=== PATIENT | female | born 1965 | race Caucasian/White ===

== ENCOUNTER 2017-10-08 16:54 | Emergency (ER) | payer MEDICARE ==
[~2017-10-08] VITALS: Ht 157.5 cm; Wt 95.3 kg
[2017-10-08] MEDS ORDERED: KETOROLAC TROMETHAMINE 30 MG/ML VIAL IM STA (17:06)
[2017-10-08] MEDS ORDERED: METOCLOPRAMIDE HCL 10 MG/2ML VIAL IM ONE (17:15)
[2017-10-08] MEDS ORDERED: DIPHENHYDRAMINE HCL INJ 50 MG/ML VIAL IM ONE (17:15)
[2017-10-08] MEDS ORDERED: BUTORPHANOL TARTRATE INJ 1 MG/ML VIAL IM ONE (17:15)
[2017-10-08] MEDS ORDERED: MORPHINE SULFATE 5 MG/ML VIAL IV ONE (17:30)
== END 2017-10-08 17:46 | disposition home or self-care (01) ==
LOC: FSED 16:54
DX: G43.909 Migraine, unspecified, not intractable, without status migrainosus (principal); R11.0 Nausea
CPT/HCPCS: 99283; J0595; J1200; J1885; J2270; J2765

== ENCOUNTER 2018-03-22 00:25 | Emergency (ER) | payer MEDICARE ==
[~2018-03-22] VITALS: Ht 157.5 cm; Wt 95.3 kg
[2018-03-22] MEDS ORDERED: KETOROLAC TROMETHAMINE 30 MG/ML VIAL IV STA (02:37)
[2018-03-22] MEDS ORDERED: ONDANSETRON HCL INJ 2 MG/ML VIAL IV STA (02:37)
[2018-03-22] MEDS ORDERED: DIPHENHYDRAMINE HCL INJ 50 MG/ML VIAL IV ONE (02:45)
[2018-03-22] MEDS ORDERED: SODIUM CHLORIDE 0.9% 1000ML 1,000 ML IV SCH ×2 (02:45→03:00)
[2018-03-22] MEDS ORDERED: MORPHINE SULFATE 2 MG/ML SYR IV ONE (07:00)
== END 2018-03-22 04:25 | disposition left against medical advice (07) ==
LOC: FSED 02:15
DX: G43.019 Migraine without aura, intractable, without status migrainosus (principal); R11.2 Nausea with vomiting, unspecified
CPT/HCPCS: 93005; 99282; J1200; J1885; J2270; J2405; J7030

== ENCOUNTER 2018-07-20 03:50 | Emergency (ER) | payer MEDICARE ==
[~2018-07-20] VITALS: Ht 157.5 cm; Wt 95.3 kg
--- OUTSIDE RECORDS SUMMARY | 2018-07-20 03:54 | XMS REPORT | Continuity of Care Document ---
Author Author Mary albarado Organization Interface Address Unknown Phone Unavailable Problems Problem Status Onset Date Classification Date Reported Comments Source EGD Active 05/25/2018 [facility] EGD /C BOTOX Active 03/17/2018 [facility] E66.9 OBESITY, UNSPECIFIED Active 11/05/2017 [facility] E66.9 Active 07/14/2017 [facility] Pain due to internal orthopedic prosthetic devices, implants and grafts, initial encounter 04/30/2017 07/29/2017 [facility] Z96.651 Active 02/11/2017 [facility] RIGHT KNEE Active 10/07/2016 [facility] William M79.674 - PAIN IN RIGHT TOE(S) Active 07/31/2016 [facility] [place] RT KNEE TKA Active 04/20/2016 [facility] [place] RT TKA Active 04/20/2016 [facility] [place] RIGHT TOTAL KNEE REPLACEMENT Active 04/20/2016 [facility] [place] KNEE Active 04/20/2016 [facility] [place] UNK Active 03/20/2016 [facility] R10.32 - LEFT LOWER QUADRANT PAIN Active 08/19/2015 [facility] [place] Z12.39 - ENCOUNTER FOR OTH SCREENING FO Active 03/11/2015 [facility] [place] Glossitis<sup>15</sup> Active 10/01/2014 Problem 02/21/2016 Data migrated from [place] on 10/17/14. [facility] [place] Low back pain<sup>19</sup> Active 10/01/2014 Problem 02/21/2016 Data migrated from [place] on 10/17/14. [facility] [place] [facility] [place] Bronchitis<sup>5</sup> Active 10/01/2014 Problem 09/19/2017 Data migrated from [place] on 10/17/14. [facility] [place] [facility] [place] Bronchitis<sup>5</sup> Active 10/01/2014 Problem 07/10/2018 Data migrated from [employer] on 10/17/14. [facility] [place], [place] Glossitis<sup>16</sup> Active 10/01/2014 Problem 07/10/2018 Data migrated from [employer] on 10/17/14. [place] [place] [facility] [place], [facility] Low back pain<sup>20</sup> Active 10/01/2014 Problem 07/10/2018 Data migrated from [employer] on 10/17/14. [place], [facility] [place], [facility] [place], [facility] Bronchitis<sup>5</sup> Active 10/01/2014 Problem 09/17/2017 Data migrated from [employer] on 10/17/14. [facility] [place], [facility] [place] Bronchitis<sup>5</sup> Active 10/01/2014 Problem 05/13/2018 Data migrated from [employer] on 10/17/14. [facility] [place], [facility] Bronchitis<sup>5</sup> Active 10/01/2014 Problem 07/29/2017 Data migrated from [employer] on 10/17/14. [facility] [place], [facility] 338 - PAIN NEC Active 09/05/2014 [facility] [place] Dysfunction of eustachian tube<sup>9</sup> Active 03/28/2014 Problem 02/21/2016 Data migrated from [employer] on 09/08/14. [facility] [place], [facility] [place] Dysuria<sup>10</sup> Active 03/28/2014 Problem 02/21/2016 Data migrated from [employer] on 09/08/14. [facility] [place], [facility] [place] Recurrent sinusitis<sup>25</sup> Active 03/28/2014 Problem 02/21/2016 Data migrated from [employer] on 09/08/14. [facility] [place], [facility] [place] Dysfunction of eustachian tube<sup>10</sup> Active 03/28/2014 Problem 07/10/2018 Data migrated from [employer] on 09/08/14. [place], [facility] [place], [facility] [place], [facility] [place] Dysuria<sup>11</sup> Active 03/28/2014 Problem 07/10/2018 Data migrated from [employer] on 09/08/14. [facility], [facility] [place], [facility] [place], [facility] [place] Recurrent sinusitis<sup>26</sup> Active 03/28/2014 Problem 07/10/2018 Data migrated from [employer] on 09/08/14. [facility], [facility] [place], [facility] [place], [facility] [place] Recurrent urinary tract infection<sup>26</sup> Active 12/01/2013 Problem 02/21/2016 Data migrated from [employer] on 09/08/14. [facility] [place], [facility] [place] Recurrent urinary tract infection<sup>27</sup> Active 12/01/2013 Problem 07/10/2018 Data migrated from [employer] on 09/08/14. [facility], [facility] [place], [facility] [place], [facility] [place] Hypothyroidism<sup>17</sup> Active 10/30/2013 Problem 02/21/2016 Data migrated from [employer] on 09/08/14. [facility] [place], [facility] [place] Meralgia paresthetica<sup>21</sup> Active 10/30/2013 Problem 02/21/2016 Data migrated from [employer] on 09/08/14. [facility] [place], [facility] [place] Urinary tract infectious disease<sup>31, 32</sup> Resolved 10/30/2013 Problem 02/21/2016 Data migrated from [employer] on 10/26/14. [facility] [place], [facility] [place] Hypothyroidism<sup>18</sup> Active 10/30/2013 Problem 07/10/2018 Data migrated from [employer] on 09/08/14. [facility], [facility] [place], [facility] [place], [facility], [facility] [place] Meralgia paresthetica<sup>22</sup> Active 10/30/2013 Problem 07/10/2018 Data migrated from [employer] on 09/08/14. [facility], [facility] [place], [facility] [place], [facility], [facility] Urinary tract infectious disease<sup>32, 33</sup> Resolved 10/30/2013 Problem 07/10/2018 Data migrated from [employer] on 10/26/14. [facility], [facility] [place], [facility] [place], [facility], [facility] Per DEVIATED NASAL SEPTUM, TURBINATE HYPERTR Active 09/28/2013 [facility] 278.00 Active 09/19/2013 [facility] Retention of urine<sup>28</sup> Active 08/29/2013 Problem 02/21/2016 Data migrated from [employer] on 09/08/14. [facility] [place], [facility] [place] Retention of urine<sup>29</sup> Active 08/29/2013 Problem 07/10/2018 Data migrated from [employer] on 09/08/14. [facility], [facility] [place], [facility] [place], [facility], [facility] Gastroparesis syndrome<sup>14</sup> Active 08/02/2013 Problem 02/21/2016 Data migrated from [employer] on 09/08/14. [facility] [place], [facility] [place] Hiatal hernia<sup>16</sup> Active 08/02/2013 Problem 02/21/2016 Data migrated from [employer] on 09/08/14. [facility] [place], [facility] [place] Gastroparesis syndrome<sup>15</sup> Active 08/02/2013 Problem 07/10/2018 Data migrated from [employer] on 09/08/14. [facility], [facility] [place], [facility] [place], [facility], [facility] [place] Hiatal hernia<sup>17</sup> Active 08/02/2013 Problem 07/10/2018 Data migrated from [employer] on 09/08/14. [facility], [facility] [place], [facility] [place], [facility], [facility] 350.2 - ATYPICAL FACE P Active 08/01/2013 [facility] Acute cystitis<sup>1, 2</sup> Resolved 07/26/2013 Problem 09/19/2017 Data migrated from [employer] on 10/26/14. [facility] [place], [facility] [place] Acute cystitis<sup>1, 2</sup> Resolved 07/26/2013 Problem 07/10/2018 Data migrated from [employer] on 10/26/14. [facility] [place], [place] Acute cystitis<sup>1, 2</sup> Resolved 07/26/2013 Problem 09/17/2017 Data migrated from [employer] on 10/26/14. [facility] [place], [facility] [place] Acute cystitis<sup>1, 2</sup> Resolved 07/26/2013 Problem 05/13/2018 Data migrated from [employer] on 10/26/14. [facility] [place], [facility] Acute cystitis<sup>1, 2</sup> Resolved 07/26/2013 Problem 07/29/2017 Data migrated from [employer] on 10/26/14. [facility] [place], [facility] Per Impaired glucose tolerance<sup>18</sup> Active 07/14/2013 Problem 02/21/2016 Data migrated from [employer] on 09/08/14. [facility], [facility] [place] Serum TSH level abnormal<sup>29</sup> Active 07/14/2013 Problem 02/21/2016 Data migrated from [employer] on 09/08/14. [facility] [place], [facility] [place] Vitamin D deficiency<sup>34</sup> Active 07/14/2013 Problem 02/21/2016 Data migrated from [employer] on 09/08/14. [facility] [place], [facility] [place] Impaired glucose tolerance<sup>19</sup> Active 07/14/2013 Problem 07/10/2018 Data migrated from [employer] on 09/08/14. [facility], [facility] [place], [facility] [place], [facility], [facility] Serum TSH level abnormal<sup>30</sup> Active 07/14/2013 Problem 07/10/2018 Data migrated from [employer] on 09/08/14. [facility], [facility] [place], [facility] [place], [facility], [facility] Vitamin D deficiency<sup>35</sup> Active 07/14/2013 Problem 07/10/2018 Data migrated from [employer] on 09/08/14. [facility], [facility] [place], [facility] [place], [facility], [facility] [place] Fatigue<sup>12</sup> Active 07/13/2013 Problem 02/21/2016 Data migrated from [employer] on 09/08/14. [facility] [place], [facility] [place] Fatigue<sup>13</sup> Active 07/13/2013 Problem 07/10/2018 Data migrated from [employer] on 09/08/14. [facility], [facility] [place], [facility] [place], [facility], [facility] [place] 719.44 - JOINT PAIN-HAND Active 06/16/2013 [facility] 836.0 Active 05/24/2013 [place] Depressive disorder<sup>8</sup> Active 05/19/2013 Problem 02/21/2016 Data migrated from [employer] on 09/08/14. [facility] [place], [facility] [place] Foot pain<sup>13</sup> Active 05/19/2013 Problem 02/21/2016 Data migrated from [employer] on 09/08/14. [facility] [place], [facility] [place] Neck pain<sup>23</sup> Active 05/19/2013 Problem 02/21/2016 Data migrated from [employer] on 09/08/14. [facility], [facility] [place] Depressive disorder<sup>9</sup> Active 05/19/2013 Problem 07/10/2018 Data migrated from [employer] on 09/08/14. [facility], [facility] [place], [facility] [place], [facility], [facility] [place] Foot pain<sup>14</sup> Active 05/19/2013 Problem 07/10/2018 Data migrated from [employer] on 09/08/14. [facility], [facility] [place], [facility] [place], [facility], [facility] [place] Neck pain<sup>24</sup> Active 05/19/2013 Problem 07/10/2018 Data migrated from [employer] on 09/08/14. [facility], [facility] [place], [facility] [place], [facility], [facility] [place] Viral gastroenteritis<sup>33</sup> Resolved 03/03/2013 Problem 02/21/2016 Data migrated from [employer] on 10/26/14. [place], [facility] [place] Allergic rhinitis<sup>3</sup> Active 03/03/2013 Problem 09/19/2017 Data migrated from [employer] on 09/08/14. [place], [facility] [place] Allergic rhinitis<sup>3</sup> Active 03/03/2013 Problem 07/10/2018 Data migrated from [employer] on 09/08/14. [facility],[facility] Viral gastroenteritis<sup>34</sup> Resolved 03/03/2013 Problem 07/10/2018 Data migrated from [employer] on 10/26/14. [facility], [facility] [place], [facility] [place], [facility], [facility] Allergic rhinitis<sup>3</sup> Active 03/03/2013 Problem 09/17/2017 Data migrated from [employer] on 09/08/14. [facility] [place] Allergic rhinitis<sup>3</sup> Active 03/03/2013 Problem 05/13/2018 Data migrated from [employer] on 09/08/14. [facility] [place], [facility] Allergic rhinitis<sup>3</sup> Active 03/03/2013 Problem 07/29/2017 Data migrated from [employer] on 09/08/14. [facility] [place] Lumbar spondylosis<sup>20</sup> Active 01/25/2013 Problem 02/21/2016 Data migrated from [employer] on 09/08/14. [facility] [place] Tear of meniscus of knee<sup>30</sup> Active 01/25/2013 Problem 02/21/2016 Data migrated from [employer] on 09/08/14. [facility] [place] Carpal tunnel syndrome<sup>6</sup> Active 01/25/2013 Problem 09/19/2017 Data migrated from [employer] on 09/08/14. [facility] [place], [facility] [place] Chronic pain syndrome<sup>7</sup> Active 01/25/2013 Problem 09/19/2017 Data migrated from [employer] on 09/08/14. [place], [facility] [place] Carpal tunnel syndrome<sup>6</sup> Active 01/25/2013 Problem 07/10/2018 Data migrated from [employer] on 09/08/14. [place],[facility] Chronic pain syndrome<sup>7</sup> Active 01/25/2013 Problem 07/10/2018 Data migrated from [employer] on 09/08/14. [place],[facility] Lumbar spondylosis<sup>21</sup> Active 01/25/2013 Problem 07/10/2018 Data migrated from [employer] on 09/08/14. [facility], [facility] [place], [facility] [place], [facility], [facility] [place] Tear of meniscus of knee<sup>31</sup> Active 01/25/2013 Problem 07/10/2018 Data migrated from [employer] on 09/08/14. [facility], [facility] [place], [facility] [place], [facility], [facility] [place] Carpal tunnel syndrome<sup>6</sup> Active 01/25/2013 Problem 09/17/2017 Data migrated from [employer] on 09/08/14. [facility] [place] Chronic pain syndrome<sup>7</sup> Active 01/25/2013 Problem 09/17/2017 Data migrated from [employer] on 09/08/14. [place],[facility] [place] Carpal tunnel syndrome<sup>6</sup> Active 01/25/2013 Problem 05/13/2018 Data migrated from [employer] on 09/08/14. [facility] [place], [facility] Chronic pain syndrome<sup>7</sup> Active 01/25/2013 Problem 05/13/2018 Data migrated from [employer] on 09/08/14. [facility] [place], [facility] Carpal tunnel syndrome<sup>6</sup> Active 01/25/2013 Problem 07/29/2017 Data migrated from [employer] on 09/08/14. [facility] [place], [facility] [place] Chronic pain syndrome<sup>7</sup> Active 01/25/2013 Problem 07/29/2017 Data migrated from [employer] on 09/08/14. [facility] [place], [facility] [place] 789.06/553.3/787.01/536.3 Active 01/23/2013 [place] Migraine<sup>22</sup> Active 12/07/2012 Problem 02/21/2016 Data migrated from [employer] on 09/08/14. [facility] [place], [facility] [place] Migraine<sup>23</sup> Active 12/07/2012 Problem 07/10/2018 Data migrated from [employer] on 09/08/14. [facility], [facility] [place], [facility] [place], [facility], [facility] Edema of lower extremity<sup>11</sup> Active 11/01/2012 Problem 02/21/2016 Data migrated from [employer] on 09/08/14. [place], [facility] [place] Obesity<sup>24</sup> Active 11/01/2012 Problem 02/21/2016 Data migrated from [employer] on 09/08/14. [facility] [place], [facility] [place] Restless legs<sup>27</sup> Active 11/01/2012 Problem 02/21/2016 Data migrated from [employer] on 09/08/14. [place], [facility] [place] Benign hypertension<sup>4</sup> Active 11/01/2012 Problem 09/19/2017 Data migrated from [employer] on 09/08/14. [facility] [place], [facility] [place] Benign hypertension<sup>4</sup> Active 11/01/2012 Problem 07/10/2018 Data migrated from [employer] on 09/08/14. [place], [place] Edema of lower extremity<sup>12</sup> Active 11/01/2012 Problem 07/10/2018 Data migrated from [employer] on 09/08/14. [facility], [facility] [place], [facility] [place], [facility], [facility] [place] Obesity<sup>25</sup> Active 11/01/2012 Problem 07/10/2018 Data migrated from [employer] on 09/08/14. [place], [facility] [place], [facility] [place], [facility], [facility] [place] Restless legs<sup>28</sup> Active 11/01/2012 Problem 07/10/2018 Data migrated from [employer] on 09/08/14. [facility], [facility] [place], [facility] [place], [facility], [facility] Benign hypertension<sup>4</sup> Active 11/01/2012 Problem 09/17/2017 Data migrated from [employer] on 09/08/14. [facility] [place], [facility] [place] Benign hypertension<sup>4</sup> Active 11/01/2012 Problem 05/13/2018 Data migrated from [employer] on 09/08/14. [facility] [place], [facility] Benign hypertension<sup>4</sup> Active 11/01/2012 Problem 07/29/2017 Data migrated from [employer] on 09/08/14. [facility] [place], [facility] SPONDYLOSIS/RT KNEE PAIN Active 06/30/1989 [facility] [place] Anxiety depression Active Problem 07/10/2018 [facility], [facility] [place], [facility] [place], [facility] [place],[facility], [facility], [facility] [place] Gastritis Active Problem 07/10/2018 [facility], [facility] [place], [facility] [place], [facility] [place],[facility], [facility], [facility] H/O: migraine Active Problem 07/10/2018 [facility], [facility] [place], [facility] [place], [facility] [place],[facility], [facility], [facility] [place] Restless legs syndrome Active Problem 07/10/2018 [facility], [facility] [place], [facility] [place], [facility] [place],[facility], [facility], [facility] Hiatal hernia Active Problem 03/24/2013 [facility], [facility] [place] Hiatal hernia Active Problem 08/20/2013 [facility], [facility] [place] Gastric ulcer Resolved Problem 09/19/2017 [facility] [place], [facility] [place] Gastroparesis Resolved Problem 09/19/2017 [facility] [place], [facility] [place] Hiatal hernia Active Problem 10/21/2013 [facility] Right knee DJD<sup>8</sup> Active Problem 07/10/2018 right knee [facility] [place], [facility] [place], [facility], [facility] [place] Gastric ulcer Resolved Problem 07/10/2018 [facility] [place],[facility] Gastroparesis Resolved Problem 07/10/2018 [facility] [place],[facility] Chronic bipolar disorder Active Problem 07/10/2018 [facility] [place], [facility] [place], [facility], [facility] [place] Gastric ulcer Resolved Problem 09/17/2017 [facility] [place],[facility] [place] Gastroparesis Resolved Problem 09/17/2017 [facility] [place],[facility] [place] Gastric ulcer Resolved Problem 05/13/2018 [facility] [place],[facility], [facility] Gastroparesis Resolved Problem 05/13/2018 [facility] [place],[facility], [facility] Gastric ulcer Resolved Problem 07/29/2017 [facility] [place],[facility], [facility] [place] Gastroparesis Resolved Problem 07/29/2017 [facility] [place],[facility], [facility] Per CARPAL TUNNEL, KNEE BACK PAIN Active [facility] [place] CARPAL TUNNEL/KNEE BACK Active [facility] [place] DEVIATED NASAL SEPTUM Active [facility] HYPERTRPH NASAL TURBINAT Active [facility] UNILATERAL PRIMARY OSTEOARTHRITIS, RIGHT Active [facility] RIGHT TKA Active [facility] [place] PRESENCE OF RIGHT ARTIFICIAL KNEE JOINT Active [facility] Medications Medication Details Route Status Patient Instructions Ordering Provider Order Date Source Botulinum Toxin Type A 100 unit, Route: INJ, Drug form: INJ, ONCALL, Dosing Weight 95.114, kg, Start date: 06/13/18 8:00:00 CONTINUOUS IMPROVEMENT CONSULTANT, Duration: 1 day, Stop date: 06/14/18 7:59:00 CSTNotes: "TO BE RECONSTITUTED AND ADMINISTERED ONLY BY A PHYSICIAN" Reconstitute with preservative free NS only. Stability=4 hours after reconstitution. (Same As: Botox) WASTE: F/P - Red; E - Red Inactive 06/13/2018 [facility] Acetaminophen 325 MG / Hydrocodone Bitartrate 7.5 MG Oral Tablet 1 tab, PO, Q6H, 0 Refill(s) Active 06/10/2018 [facility] Hydroxyzine Hydrochloride 25 MG Oral Tablet 1-2 tab, PO, Bedtime, PRN Sleep, X 30 day, # 60 tab, 0 Refill(s), Pharmacy: [facility] [id number] Active 05/11/2018 [facility] 24 HR Desvenlafaxine 100 MG Extended Release Tablet [Pristiq] 100 mg=1 tab, PO, Daily, # 30 tab, 0 Refill(s), [place], Pharmacy: [facility] [id number], brand name preferred Active 05/11/2018 [facility] levothyroxine 75 mcg (0.075 mg) oral tablet 75 microgram=1 tab, PO, Daily, # 90 tab, 0 Refill(s), Pharmacy: [facility] [id number] Active 05/11/2018 [facility] Acetaminophen 300 MG / butalbital 50 MG / Caffeine 40 MG Oral Capsule [Fioricet] 1 cap, PO, Q4H, PRN PRN Headache, Do not exceed 6 capsules in 24 hours, # 60 cap, 1 Refill(s), Pharmacy: [facility] [id number] Active 05/11/2018 [facility] Ergocalciferol 54609 UNT Oral Capsule 50,000 IntlUnit=1 cap, PO, qWeek, # 12 cap, 0 Refill(s), Pharmacy: [facility] [id number] Active 05/11/2018 [facility] Amoxicillin 875 MG / Clavulanate 125 MG Oral Tablet [Augmentin 875-mg] 875 mg=1 tab, PO, BID, X 10 day, # 20 tab, 0 Refill(s), Pharmacy: [facility] [id number] Active 10/19/2017 [facility] levocetirizine dihydrochloride 5 MG Oral Tablet [Xyzal] 5 mg=1 tab, PO, QPM, # 30 tab, 1 Refill(s), Pharmacy: [facility] [id number] Active 10/19/2017 [facility] Metoclopramide 5 MG Oral Tablet See Instructions, # 60 tab, Refill(s) 1, TAKE 1 TABLET BY MOUTH EVERY 6 HOURS NEEDED FOR NAUSEA AND VOMITING, Pharmacy: [email or web address] [id number] Active 08/30/2017 [facility] Ranitidine 150 MG Oral Tablet See Instructions, # 180 tab, TAKE 1 TABLET BY MOUTH TWICE DAILY, Pharmacy: [email or web address] [id number] Active 08/30/2017 [facility] rOPINIRole 4 mg oral tablet See Instructions, # 270 tab, TAKE 1 TABLET BY MOUTH THREE TIMES DAILY, Pharmacy: [email or web address] [id number] Active 08/30/2017 [facility] Cephalexin 500 MG Oral Capsule [Keflex] 500 mg=1 cap, PO, TID, X 14 day, # 42 cap, 0 Refill(s), Pharmacy: [email or web address] [id number] Active 08/11/2017 [facility] Ceftriaxone 250 mg, Route: IM, ONCE, Dosing Weight 100.909, kg, Start date: 08/10/17 12:05:00 CDT, Stop date: 08/10/17 12:05:00 CDT Inactive 08/10/2017 [facility] Cephalexin 500 MG Oral Capsule [Keflex] 500 mg=1 cap, PO, BID, X 7 day, # 14 cap, 0 Refill(s), Pharmacy: [email or web address] [id number] Active 07/23/2017 [facility] Nitrofurantoin 100 MG Oral Capsule [Macrobid] 100 mg=1 cap, PO, BID, X 7 day, # 14 cap, 0 Refill(s), Pharmacy: [email or web address] [id number] No Longer Active 07/05/2017 [facility] Metoclopramide 5 MG Oral Tablet [Reglan] 5 mg=1 tab, PO, Q6H, PRN nausea and vomiting, # 30 tab, 0 Refill(s), Pharmacy: [email or web address] [id number] No Longer Active 07/01/2017 [facility] Ciprofloxacin 500 MG Oral Tablet [Cipro] 500 mg=1 tab, PO, Q12H, X 7 day, # 14 tab, 0 Refill(s), Pharmacy: [email or web address] [id number] No Longer Active 07/01/2017 [facility] Cephalexin 500 MG Oral Capsule [Keflex] 500 mg=1 cap, PO, TID, X 7 day, # 21 cap, 0 Refill(s), Pharmacy: [facility] [employer] [facility] [id number] No Longer Active 06/04/2017 [facility] Ciprofloxacin 500 MG Oral Tablet [Cipro] 500 mg=1 tab, PO, Q12H, X 7 day, # 14 tab, 0 Refill(s), [facility] [employer] [facility] [id number] No Longer Active 06/01/2017 [facility] tramadol hydrochloride 50 MG Oral Tablet 50 mg=1 tab, PO, BID, X 7 day, # 14 tab, 0 Refill(s) No Longer Active 06/01/2017 [facility] rOPINIRole 4 mg oral tablet 4 mg=1 tab, PO, TID, # 270 tab, 0 Refill(s), [facility] [id number] Active 05/07/2017 [facility] Ciprofloxacin 500 MG Oral Tablet [Cipro] 500 mg=1 tab, PO, Q12H, X 5 day, # 10 tab, 0 Refill(s), [id number] 03/18[facility]2017 [facility] Ketorolac 30 mg, Route: IM, ONCE, Dosing Weight 93.182, kg, Start date: 03/10/17 17:15:00 CONTINUOUS IMPROVEMENT CONSULTANT, Stop date: 03/10/17 17:15:00 CONTINUOUS IMPROVEMENT CONSULTANT Inactive 03/10/2017 [facility] dexamethasone 2 mg, 0.5 tab, Route: PO, Drug form: TAB, ONCE, Start date: 04/23/16 11:30:00 CONTINUOUS IMPROVEMENT CONSULTANT, Stop date: 04/23/16 11:30:00 CSTNotes: Give with food. (Same As: Decadron) No Longer Active 04/23/2016 [facility] dexamethasone 4 mg, 1 tab, Route: PO, Drug form: TAB, ONCE, Start date: 04/22/16 11:30:00 CONTINUOUS IMPROVEMENT CONSULTANT, Stop date: 04/22/16 11:30:00 CSTNotes: Give with food. (Same As: Decadron) No Longer Active 04/22/2016 [facility] 24 HR Desvenlafaxine 100 MG Extended Release Tablet [Pristiq] 100 mg, 1 tab, Route: PO, Drug form: ERTAB, Daily, Dosing Weight 72.727, kg, Start date: 04/22/16 9:00:00 CONTINUOUS IMPROVEMENT CONSULTANT, Duration: 30 day, Stop date: 05/21/16 9:00:00 CONTINUOUS IMPROVEMENT CONSULTANT No Longer Active 04/22/2016 [facility] Topamax 150 mg, 1.5 tab, Route: PO, Drug form: TAB, Daily, Dosing Weight 72.727, kg, Start date: 04/22/16 9:00:00 CONTINUOUS IMPROVEMENT CONSULTANT, Duration: 30 day, Stop date: 05/21/16 9:00:00 CSTNotes: (Same As: Topamax) "Do Not Crush" No Longer Active 04/22/2016 [facility] Saline Flush 0.9% 10 ml, Route: IVP, Drug Form: INJ, Dosing Weight 75.727, kg, Q12H, Start date: 04/21/16 21:00:00 CONTINUOUS IMPROVEMENT CONSULTANT, Duration: 30 day, Stop date: 05/21/16 9:00:00 CSTNotes: preservative free. Inactive 04/22/2016 [facility] ropinirole 4 mg, 2 tab, Route: PO, Drug form: TAB, Bedtime, Dosing Weight 72.727, kg, Start date: 04/21/16 21:00:00 CONTINUOUS IMPROVEMENT CONSULTANT, Duration: 30 day, Stop date: 05/20/16 21:00:00 CSTNotes: (Same as: Requip) Inactive 04/22/2016 [facility] lamotrigine 100 MG Oral Tablet 100 mg, 1 tab, Route: PO, Drug form: TAB, BID, Dosing Weight 72.727, kg, Start date: 04/21/16 20:00:00 CONTINUOUS IMPROVEMENT CONSULTANT, Duration: 30 day, Stop date: 05/21/16 9:00:00 CSTNotes: (Same as:LaMICtal) Inactive 04/22/2016 [facility] Pepcid 20 mg, 1 tab, Route: PO, Drug form: TAB, BID, Start date: 04/21/16 17:00:00 CONTINUOUS IMPROVEMENT CONSULTANT, Duration: 30 day, Stop date: 05/21/16 9:00:00 CSTNotes: (Same as: Pepcid) Inactive 04/21/2016 [facility] Ranitidine 150 MG Oral Tablet 1 tab, Route: PO, Drug form: TAB, BID, Dosing Weight 72.727, kg, Start date: 04/21/16 17:00:00 CONTINUOUS IMPROVEMENT CONSULTANT, Duration: 30 day, Stop date: 05/21/16 9:00:00 CONTINUOUS IMPROVEMENT CONSULTANT Inactive 04/21/2016 [facility] dexamethasone 4 mg oral tablet 4 mg=1 tab, PO, ONCE, follow instructions on bottle from pharmacy, 0 Refill(s) Active 04/21/2016 [facility] Oxycodone Hydrochloride 5 MG Oral Tablet 5 mg=1 tab, PO, Q3H, PRN Pain Score 7-10, or 2 tabs every 4-6 hrs,, 0 Refill(s) Active 04/21/2016 [facility] dexamethasone 4 mg, 1 mL, Route: IVP, Drug form: INJ, ONCE, Start date: 04/21/16 14:23:00 CONTINUOUS IMPROVEMENT CONSULTANT, Stop date: 04/21/16 14:23:00 CSTNotes: Concentration: 4mg/ml Inactive 04/21/2016 [facility] Zofran 4 mg, 2 mL, Route: IVP, Drug form: INJ, Q6H, PRN Nausea & Vomiting, Start date: 04/21/16 14:00:00 CONTINUOUS IMPROVEMENT CONSULTANT, Duration: 30 day, Stop date: 05/21/16 13:59:00 CSTNotes: (Same as: Zofran) MEDICATION WASTE Product Size: 4 mg Product Wasted: ___ mg Inactive 04/21/2016 [facility] Aspirin 325 MG Enteric Coated Tablet 325 mg=1 tab, PO, BID, # 30 tab, 0 Refill(s), called to pharmacy Active 04/21/2016 [facility] Acetaminophen 325 MG / Oxycodone Hydrochloride 10 MG Oral Tablet [Percocet 10/325] 1 tab, PO, Q6H, # 90 tab, 0 Refill(s), given to patient No Longer Active 04/21/2016 [facility] RN-Bring pt's own PRISTIQ to pharmacist for label RN-Bring pt's own PRISTIQ to pharmacist for label, Attn:RN, Drug form: MISC, Route: MISC, QSHIFT, 04/21/16 12:00:00 CONTINUOUS IMPROVEMENT CONSULTANT, Duration: 30 day, Stop date: 05/21/16 8:00:00 CONTINUOUS IMPROVEMENT CONSULTANT Inactive 04/21/2016 [facility] dexamethasone 4 mg, 1 mL, Route: IVP, Drug form: INJ, ONCE, Start date: 04/21/16 11:30:00 CONTINUOUS IMPROVEMENT CONSULTANT, Stop date: 04/21/16 11:30:00 CSTNotes: Concentration: 4mg/ml Inactive 04/21/2016 [facility] Diazepam 10 mg, 2 tab, Route: PO, Drug form: TAB, Daily, Dosing Weight 72.727, kg, Priority: STAT, Start date: 04/21/16 10:51:00 CONTINUOUS IMPROVEMENT CONSULTANT, Duration: 30 day, Stop date: 05/21/16 9:00:00 CSTNotes: (Same as: Valium) Inactive 04/21/2016 [facility] Saline Flush 0.9% 10 ml, Route: IVP, Drug Form: INJ, Dosing Weight 75.727, kg, PRN, PRN Line Flush, Start date: 04/21/16 10:29:00 CONTINUOUS IMPROVEMENT CONSULTANT, Duration: 30 day, Stop date: 05/21/16 10:28:00 CSTNotes: preservative free. Inactive 04/21/2016 [facility] Enoxaparin 40 mg, 0.4 mL, Route: SUB-Q, Drug form: INJ, Daily, Dosing Weight 75.727, kg, Start date: 04/21/16 9:35:00 CONTINUOUS IMPROVEMENT CONSULTANT, Duration: 30 day, Stop date: 05/20/16 9:35:00 CSTNotes: (Same as: Lovenox) Inactive 04/21/2016 [facility] Vancomycin 6.67 MG/ML Injectable Solution 1,000 mg, Route: IVPB, [id number], Dosing Weight 75.727, kg, Time Critical Medication, Start date: 04/20/16 20:00:00 CONTINUOUS IMPROVEMENT CONSULTANT, Duration: 2 doses or times, Stop date: 04/21/16 8:00:00 CONTINUOUS IMPROVEMENT CONSULTANT, Pharmacy to adjust dose for renal functionNotes: TIME CRITICAL MEDICATION (Same As: Vancocin) Infusion rate 2001 mg: infuse over 2.5 hours MEDICATION WASTE Product Size: 1000 mg Product Wasted: ___ mg No Longer Active 04/21/2016 [facility] Docusate 100 mg, 1 cap, Route: PO, Drug form: CAP, BID, Dosing Weight 75.727, kg, Start date: 04/20/16 17:00:00 CONTINUOUS IMPROVEMENT CONSULTANT, Duration: 30 day, Stop date: 05/20/16 9:00:00 CSTNotes: (Same as: Colace) (Do Not Crush) No Longer Active 04/20/2016 [facility] Ketorolac 15 mg, 1 mL, Route: IV, Drug form: INJ, Q8H, Dosing Weight 75.727, kg, Start date: 04/20/16 16:00:00 CONTINUOUS IMPROVEMENT CONSULTANT, Duration: 2 day, Stop date: 04/22/16 8:00:00 CSTNotes: (Same as:Toradol) IV bolus must be given >15 seconds. Give IM administration slowly and deeply into the muscle. Not for use > 4 days. No Longer Active 04/20/2016 [facility] Zofran 4 mg, 2 mL, Route: IV, Drug form: INJ, Q8H, Dosing Weight 75.727, kg, Start date: 04/20/16 16:00:00 CONTINUOUS IMPROVEMENT CONSULTANT, Duration: 3 doses or times, Stop date: 04/21/16 8:00:00 CSTNotes: (Same as: Zofran) MEDICATION WASTE Product Size: 4 mg Product Wasted: ___ mg No Longer Active 04/20/2016 [facility] Cyklokapron + sodium chloride 0.9% INJ 100 mL 1,000 mg, 10 mL, Route: IVPB, ONCE, Start date: 04/20/16 16:00:00 CONTINUOUS IMPROVEMENT CONSULTANT, Stop date: 04/20/16 16:00:00 CSTNotes: (Same As: Cyklokapron) Inactive 04/20/2016 [facility] ceFAZolin (SCIP) 1 gm, 100 mL, Route: IVPB, Drug form: INJ, ABXQ6H, Dosing Weight 75.727, kg, Start date: 04/20/16 14:00:00 CONTINUOUS IMPROVEMENT CONSULTANT, Duration: 3 doses or times, Stop date: 04/21/16 2:00:00 CONTINUOUS IMPROVEMENT CONSULTANT No Longer Active 04/20/2016 [facility] dexamethasone 2 mg, 0.5 mL, Route: IVP, Drug form: INJ, ONCE, Start date: 04/20/16 11:35:00 CONTINUOUS IMPROVEMENT CONSULTANT, Stop date: 04/20/16 11:35:00 CSTNotes: Concentration: 4mg/ml Inactive 04/20/2016 [facility] Roxicodone 10 mg, 2 tab, Route: PO, Drug form: TAB, Q3H, PRN Pain Score 7-10, Start date: 04/20/16 11:27:00 CONTINUOUS IMPROVEMENT CONSULTANT, Duration: 30 day, Stop date: 05/20/16 11:26:00 CSTNotes: (Same as: Roxicodone) No Longer Active 04/20/2016 [facility] Tylenol 325 mg, 1 tab, Route: PO, Drug form: TAB, Q3H, PRN Pain Score 7-10, Start date: 04/20/16 11:26:00 CONTINUOUS IMPROVEMENT CONSULTANT, Duration: 30 day, Stop date: 05/20/16 11:25:00 CSTNotes: Do not exceed 4 gm/day. (Same as: Tylenol) No Longer Active 04/20/2016 [facility] Naloxone 0.1 mg, 0.25 mL, Route: IVP, Drug form: INJ, Q2MIN, Dosing Weight 75.727, kg, PRN Narcotic Reversal, Start date: 04/20/16 10:50:00 CONTINUOUS IMPROVEMENT CONSULTANT, Duration: 8 doses or times, Stop date: Limited # of timesNotes: Same as Narcan No Longer Active 04/20/2016 [facility] Meperidine 12.5 mg, Route: IVP, Q30Min, Dosing Weight 75.727, kg, PRN Other -See Comment, For shivering, Start date: 04/20/16 10:50:00 CONTINUOUS IMPROVEMENT CONSULTANT, Duration: 2 doses or times, Stop date: Limited # of times Inactive 04/20/2016 [facility] Diphenhydramine 12.5 mg, Route: IVP, Drug form: INJ, Q6H, Dosing Weight 75.727, kg, PRN Itching, Start date: 04/20/16 10:50:00 CONTINUOUS IMPROVEMENT CONSULTANT, Duration: 30 day, Stop date: 05/20/16 10:49:00 CONTINUOUS IMPROVEMENT CONSULTANT Inactive 04/20/2016 [facility] Promethazine 6.25 mg, Route: IVPB, ONCE, Dosing Weight 75.727, kg, PRN Nausea & Vomiting, Start date: 04/20/16 10:50:00 CONTINUOUS IMPROVEMENT CONSULTANT Inactive 04/20/2016 [facility] Ondansetron 4 mg, Route: IVP, ONCE, Dosing Weight 75.727, kg, PRN Nausea & Vomiting, Start date: 04/20/16 10:50:00 CONTINUOUS IMPROVEMENT CONSULTANT Inactive 04/20/2016 [facility] Flumazenil 0.2 mg, Route: IVP, PRN, Dosing Weight 75.727, kg, PRN Benzodiazepine Reversal, Initial dose, Start date: 04/20/16 10:50:00 CONTINUOUS IMPROVEMENT CONSULTANT, Duration: 30 day, Stop date: 05/20/16 10:49:00 CONTINUOUS IMPROVEMENT CONSULTANT Inactive 04/20/2016 [facility] Hydromorphone 0.5 mg, Route: IVP, Q5Min, Dosing Weight 75.727, kg, PRN Pain Score 7-10, Start date: 04/20/16 10:50:00 CONTINUOUS IMPROVEMENT CONSULTANT, Duration: 4 doses or times, Stop date: Limited # of times Inactive 04/20/2016 [facility] Hydralazine 10 mg, Route: IVP, Q20Min, Dosing Weight 75.727, kg, PRN Elevated BP, Start date: 04/20/16 10:50:00 CONTINUOUS IMPROVEMENT CONSULTANT, Duration: 2 doses or times, Stop date: Limited # of times Inactive 04/20/2016 [facility] esmolol 10 mg, Route: IVP, Q5Min, Dosing Weight 75.727, kg, PRN Other -See Comment, Start date: 04/20/16 10:50:00 CONTINUOUS IMPROVEMENT CONSULTANT, Duration: 5 doses or times, Stop date: Limited # of times Inactive 04/20/2016 [facility] Labetalol 10 mg, Route: IVP, Q5Min, Dosing Weight 75.727, kg, PRN Elevated BP, Start date: 04/20/16 10:50:00 CONTINUOUS IMPROVEMENT CONSULTANT, Duration: 5 doses or times, Stop date: Limited # of times Inactive 04/20/2016 [facility] Sodium Chloride 0.154 MEQ/ML Injectable Solution 500 mL, Rate: 125 ml/hr, Infuse over: 4 hr, Route: IV, Dosing Weight 75.727 kg, Total Volume: 500, Start date: 04/20/16 10:50:00 CONTINUOUS IMPROVEMENT CONSULTANT, Duration: 30 day, Stop date: 05/20/16 10:49:00 CONTINUOUS IMPROVEMENT CONSULTANT Inactive 04/20/2016 [facility] Calcium Chloride 0.0014 MEQ/ML / Potassium Chloride 0.004 MEQ/ML / Sodium Chloride 0.103 MEQ/ML / Sodium Lactate 0.028 MEQ/ML Injectable Solution 1,000 mL, Rate: 125 ml/hr, Infuse over: 8 hr, Route: IV, Dosing Weight 75.727 kg, Total Volume: 1,000, Start date: 04/20/16 10:50:00 CONTINUOUS IMPROVEMENT CONSULTANT, Duration: 30 day, Stop date: 05/20/16 10:49:00 CONTINUOUS IMPROVEMENT CONSULTANT Inactive 04/20/2016 [facility] Oxycodone 10 mg, Route: PO, Drug form: TAB, Q4H, Dosing Weight 75.727, kg, PRN Pain Score 7-10, Start date: 04/20/16 10:50:00 CONTINUOUS IMPROVEMENT CONSULTANT, Duration: 30 day, Stop date: 05/20/16 10:49:00 CONTINUOUS IMPROVEMENT CONSULTANT Inactive 04/20/2016 [facility] Acetaminophen 1,000 mg, Route: PO, Drug form: TAB, ONCE, Dosing Weight 75.727, kg, PRN Pain Score 1-3, Start date: 04/20/16 10:50:00 CONTINUOUS IMPROVEMENT CONSULTANT, Duration: 1 doses or times, Stop date: Limited # of times Inactive 04/20/2016 [facility] Bisacodyl 10 mg, 1 supp, Route: UT, Drug form: SUPP, Daily, Dosing Weight 75.727, kg, PRN Constipation, Start date: 04/20/16 10:29:00 CONTINUOUS IMPROVEMENT CONSULTANT, Duration: 30 day, Stop date: 05/20/16 10:28:00 CSTNotes: (Same As: Dulcolax, Bisco-Lax) No Longer Active 04/20/2016 [facility] Diphenhydramine 12.5 mg, 0.5 tab, Route: PO, Drug form: TAB, Q6H, Dosing Weight 75.727, kg, PRN Itching, Start date: 04/20/16 10:29:00 CONTINUOUS IMPROVEMENT CONSULTANT, Duration: 30 day, Stop date: 05/20/16 10:28:00 CONTINUOUS IMPROVEMENT CONSULTANT No Longer Active 04/20/2016 [facility] Dexamethasone 2 mg, Route: PO, ONCE, Dosing Weight 75.727, kg, Start date: 04/20/16 10:29:00 CONTINUOUS IMPROVEMENT CONSULTANT, Stop date: 04/20/16 10:29:00 CONTINUOUS IMPROVEMENT CONSULTANT Inactive 04/20/2016 [facility] Dilaudid 0.5 mg, 0.5 mL, Route: IV, Drug form: INJ, Q3H, Dosing Weight 75.727, kg, PRN Other -See Comment, Start date: 04/20/16 10:29:00 CONTINUOUS IMPROVEMENT CONSULTANT, Duration: 30 day, Stop date: 05/20/16 10:28:00 CONTINUOUS IMPROVEMENT CONSULTANT No Longer Active 04/20/2016 [facility] Acetaminophen 325 MG / Hydrocodone Bitartrate 5 MG Oral Tablet [[place] 5/325] 1 tab, Route: PO, Drug Form: TAB, Dosing Weight 75.727, kg, Q3H, PRN Pain Score 1-3, Start date: 04/20/16 10:29:00 CONTINUOUS IMPROVEMENT CONSULTANT, Duration: 30 day, Stop date: 05/20/16 10:28:00 CSTNotes: (Same as: [place] 325/5) Do not exceed 4gm/day of acetaminophen. No Longer Active 04/20/2016 [facility] Acetaminophen 325 MG / Oxycodone Hydrochloride 10 MG Oral Tablet [Percocet 10/325] 1 tab, Route: PO, Drug Form: TAB, Dosing Weight 75.727, kg, Q3H, PRN Pain Score 7-10, Start date: 04/20/16 10:29:00 CONTINUOUS IMPROVEMENT CONSULTANT, Duration: 30 day, Stop date: 05/20/16 10:28:00 CONTINUOUS IMPROVEMENT CONSULTANT Inactive 04/20/2016 [facility] Acetaminophen 325 MG / Hydrocodone Bitartrate 10 MG Oral Tablet [[place] 10/325] 1 tab, Route: PO, Drug Form: TAB, Dosing Weight 75.727, kg, Q3H, PRN Pain Score 4-6, Start date: 04/20/16 10:29:00 CONTINUOUS IMPROVEMENT CONSULTANT, Duration: 30 day, Stop date: 05/20/16 10:28:00 CSTNotes: Do not exceed 4gm/day of acetaminophen. (Same as: [place] 325/10) No Longer Active 04/20/2016 [facility] Zofran 4 mg, Route: IV, Q6H, Dosing Weight 75.727, kg, PRN Nausea, Start date: 04/20/16 10:29:00 CONTINUOUS IMPROVEMENT CONSULTANT, Duration: 30 day, Stop date: 05/20/16 10:28:00 CONTINUOUS IMPROVEMENT CONSULTANT Inactive 04/20/2016 [facility] Tranexamic Acid 1,000 mg, Route: IV, ONCE, Dosing Weight 75.727, kg, Start date: 04/20/16 10:29:00 CONTINUOUS IMPROVEMENT CONSULTANT, Stop date: 04/20/16 10:29:00 CONTINUOUS IMPROVEMENT CONSULTANT Inactive 04/20/2016 [facility] sodium chloride 0.45% 1000 ml INJ 1,000 mL 1,000 mL, Rate: 75 ml/hr, Infuse over: 13.3 hr, Route: IV, Dosing Weight 75.727 kg, Total Volume: 1,000, Start date: 04/20/16 10:29:00 CONTINUOUS IMPROVEMENT CONSULTANT, Duration: 30 day, Stop date: 05/20/16 10:28:00 CONTINUOUS IMPROVEMENT CONSULTANT No Longer Active 04/20/2016 [facility] ondansetron (ANES) Route: IV, Drug form: INJ, ONCE, Stop date: 04/20/16 10:27:00 CONTINUOUS IMPROVEMENT CONSULTANT Inactive 04/20/2016 [facility] tranexamic acid (ANES) (ANES) Route: IV, Drug form: INJ, Start date: 04/20/16 9:56:00 CONTINUOUS IMPROVEMENT CONSULTANT, Stop date: 04/20/16 10:56:00 CONTINUOUS IMPROVEMENT CONSULTANT Inactive 04/20/2016 [facility] hydromorphone (ANES) Route: IV, Drug form: INJ, ONCE, Stop date: 04/20/16 9:17:00 CONTINUOUS IMPROVEMENT CONSULTANT Inactive 04/20/2016 [facility] dexamethasone (ANES) Route: IV, Drug form: INJ, ONCE, Stop date: 04/20/16 9:17:00 CONTINUOUS IMPROVEMENT CONSULTANT Inactive 04/20/2016 [facility] famotidine (ANES) Route: IV, Drug form: INJ, ONCE, Stop date: 04/20/16 9:17:00 CONTINUOUS IMPROVEMENT CONSULTANT Inactive 04/20/2016 [facility] ePHEDrine (ANES) Route: IV, Drug form: INJ, ONCE, Stop date: 04/20/16 9:17:00 CONTINUOUS IMPROVEMENT CONSULTANT Inactive 04/20/2016 [facility] fentaNYL (ANES) Route: IV, Drug form: INJ, ONCE, Stop date: 04/20/16 9:12:00 CONTINUOUS IMPROVEMENT CONSULTANT Inactive 04/20/2016 [facility] rocuronium (ANES) Route: IV, Drug form: INJ, ONCE, Stop date: 04/20/16 9:12:00 CONTINUOUS IMPROVEMENT CONSULTANT Inactive 04/20/2016 [facility] propofol (ANES) Route: IV, Drug form: INJ, ONCE, Stop date: 04/20/16 9:12:00 CONTINUOUS IMPROVEMENT CONSULTANT Inactive 04/20/2016 [facility] midazolam (ANES) Route: IV, Drug form: SOLN, ONCE, Stop date: 04/20/16 9:12:00 CONTINUOUS IMPROVEMENT CONSULTANT Inactive 04/20/2016 [facility] lidocaine (ANES) Route: IV, Drug form: INJ, ONCE, Stop date: 04/20/16 9:12:00 CONTINUOUS IMPROVEMENT CONSULTANT Inactive 04/20/2016 [facility] vancomycin (ANES) (ANES) Route: IV, Drug form: INJ, Start date: 04/20/16 8:31:00 CONTINUOUS IMPROVEMENT CONSULTANT, Stop date: 04/20/16 9:31:00 CONTINUOUS IMPROVEMENT CONSULTANT Inactive 04/20/2016 [facility] ceFAZolin (ANES) (ANES) Route: IV, Drug form: INJ, Start date: 04/20/16 8:31:00 CONTINUOUS IMPROVEMENT CONSULTANT, Stop date: 04/20/16 9:31:00 CONTINUOUS IMPROVEMENT CONSULTANT Inactive 04/20/2016 [facility] LR 1000 mL INJ (ANES) Route: IV, Total Volume: 1,000, Start date: 04/20/16 8:22:00 CONTINUOUS IMPROVEMENT CONSULTANT, Stop date: 04/20/16 9:22:00 CONTINUOUS IMPROVEMENT CONSULTANT Inactive 04/20/2016 [facility] Albuterol 0.833 MG/ML / Ipratropium [place] 0.167 MG/ML Inhalant Solution 3 mL, Route: NEB, Drug Form: SOLN, Dosing Weight 75.727, kg, ONCE, STAT, Start date: 04/20/16 8:11:00 CONTINUOUS IMPROVEMENT CONSULTANT, Stop date: 04/20/16 8:11:00 CSTNotes: (Same as: Lonnieoneb) Inactive 04/20/2016 [facility] Sodium Chloride 0.154 MEQ/ML Injectable Solution 500 mL, Rate: 25 ml/hr, Infuse over: 20 hr, Route: IV, Dosing Weight 75.727 kg, Total Volume: 500, Start date: 04/20/16 8:11:00 CONTINUOUS IMPROVEMENT CONSULTANT, Duration: 1 day, Stop date: 04/21/16 8:10:00 CONTINUOUS IMPROVEMENT CONSULTANT No Longer Active 04/20/2016 [facility] Calcium Chloride 0.0014 MEQ/ML / Potassium Chloride 0.004 MEQ/ML / Sodium Chloride 0.103 MEQ/ML / Sodium Lactate 0.028 MEQ/ML Injectable Solution 1,000 mL, Rate: 25 ml/hr, Infuse over: 40 hr, Route: IV, Dosing Weight 75.727 kg, Total Volume: 1,000, Start date: 04/20/16 8:11:00 CONTINUOUS IMPROVEMENT CONSULTANT, Duration: 1 day, Stop date: 04/21/16 8:10:00 CONTINUOUS IMPROVEMENT CONSULTANT No Longer Active 04/20/2016 [facility] Vancomycin 1,250 mg, Route: IVPB, ONCALL, Dosing Weight 75.727, kg, Start date: 04/20/16 8:00:00 CONTINUOUS IMPROVEMENT CONSULTANT, Duration: 1 day, Stop date: 04/21/16 7:59:00 CSTNotes: MEDICATION WASTE Product Size: [address] Wasted: _750__ mg SEND TO No Longer Active 04/20/2016 [facility] Tranexamic Acid 1,000 mg, 10 mL, Route: IV, ONCALL, Dosing Weight 75.727, kg, Start date: 04/20/16 8:00:00 CONTINUOUS IMPROVEMENT CONSULTANT, Duration: 12 hr, Stop date: 04/20/16 19:59:00 CSTNotes: (Same As: Cyklokapron) No Longer Active 04/20/2016 [facility] Cefazolin 2 gm, 100 mL, Route: IVPB, Drug form: INJ, ONCALL, Dosing Weight 75.727, kg, Start date: 04/20/16 8:00:00 CONTINUOUS IMPROVEMENT CONSULTANT, Duration: 12 hr, Stop date: 04/20/16 19:59:00 CSTNotes: Same as: Ancef No Longer Active 04/20/2016 [facility] Oxycontin 10 mg, Route: PO, Drug form: ERTAB, ONCALL, Dosing Weight 75.727, kg, Start date: 04/20/16 8:00:00 CONTINUOUS IMPROVEMENT CONSULTANT, Duration: 30 day, Stop date: 05/20/16 7:59:00 CONTINUOUS IMPROVEMENT CONSULTANT Inactive 04/20/2016 [facility] Tylenol 1,000 mg, Route: PO, ONCALL, Dosing Weight 75.727, kg, Start date: 04/20/16 8:00:00 CONTINUOUS IMPROVEMENT CONSULTANT, Duration: 30 day, Stop date: 05/20/16 7:59:00 CONTINUOUS IMPROVEMENT CONSULTANT Inactive 04/20/2016 [facility] celecoxib 200 mg, Route: PO, ONCALL, Dosing Weight 75.727, kg, (for CrCl > 90 mL/min), Start date: 04/20/16 8:00:00 CONTINUOUS IMPROVEMENT CONSULTANT, Duration: 30 day, Stop date: 05/20/16 7:59:00 CONTINUOUS IMPROVEMENT CONSULTANT Inactive 04/20/2016 [facility] ropivacaine 100 mL, Route: InFILtration(local), Drug Form: INJ, Dosing Weight 75.727, kg, ONCALL, Start date: 04/20/16 8:00:00 CONTINUOUS IMPROVEMENT CONSULTANT, Duration: 12 hr, Stop date: 04/20/16 19:59:00 CSTNotes: NOT FOR IV use Ropivacaine 5 mg/mL (49.25 mL) Epinephrine 1 mg/mL (0.5 mL) Clonidine 0.1 mg/mL (0.8 mL) Ketorolac 30 mg/mL (1 mL) Normal Saline 48.45 mL No Longer Active 04/20/2016 [facility] lamotrigine 100 MG Oral Tablet 100 mg=1 tab, PO, BID, # 60 tab, 0 Refill(s) Active 04/08/2016 [facility] Topamax 150 mg, PO, Daily, 0 Refill(s) Active 04/08/2016 [facility] diazepam 10 mg oral tablet 10 mg=1 tab, PO, Daily, 0 Refill(s) Active 04/08/2016 [facility] Caffeine 400 mg, Route: PO, ONCE, Dosing Weight 96.364, kg, Start date: 10/19/13 15:18:00, Stop date: 10/19/13 15:18:00 Inactive 10/19/2013 [facility] Ketorolac Tromethamine 30 MG/ML Injectable Solution 30 mg, Route: IV, ONCE, Dosing Weight 96.364, kg, Start date: 10/19/13 14:56:00, Stop date: 10/19/13 14:56:00 Inactive 10/19/2013 [facility] Promethazine 6.25 mg, Route: IVPB, ONCE, Dosing Weight 96.364, kg, Start date: 10/19/13 14:55:00, Stop date: 10/19/13 14:55:00 Inactive 10/19/2013 [facility] Flumazenil 0.2 mg, 2 mL, Route: IVP, Drug form: INJ, PRN, Dosing Weight 96.364, kg, PRN Benzodiazepine Reversal, Initial dose, Start date: 10/19/13 14:29:00, Stop date: 10/20/13 0:00:00Notes: (Same as: Romazicon) No Longer Active 10/19/2013 [facility] Naloxone 0.04 mg, 0.1 mL, Route: IVP, Drug form: INJ, Q2MIN, Dosing Weight 96.364, kg, PRN Narcotic Reversal, Start date: 10/19/13 14:29:00, Duration: 8 doses or times, Stop date: 10/20/13 0:00:00Notes: Same as Narcan No Longer Active 10/19/2013 [facility] Hydromorphone 0.5 mg, 0.25 mL, Route: IVP, Drug form: INJ, Q5Min, Dosing Weight 96.364, kg, PRN Pain Score 7-10, Start date: 10/19/13 14:29:00, Duration: 4 doses or times, Stop date: 10/20/13 0:00:00Notes: Same as: Dilaudid Inactive 10/19/2013 [facility] Ondansetron 4 mg, 2 mL, Route: IVP, Drug form: INJ, ONCE, Dosing Weight 96.364, kg, PRN Nausea & Vomiting, Start date: 10/19/13 14:29:00Notes: (Same as: Zofran) Inactive 10/19/2013 [facility] Acetaminophen 325 MG / Hydrocodone Bitartrate 5 MG Oral Tablet [[place] 5/325] 1 tab, PO, Q4H, for pain, # 20 tab, 0 Refill(s) Active 10/19/2013 [facility] Zofran 4 mg, 2 mL, Route: IVP, Drug form: INJ, ONCE, Dosing Weight 96.364, kg, Priority: STAT, Start date: 10/19/13 11:54:00, Stop date: 10/19/13 11:54:00Notes: (Same as: Zofran) Inactive 10/19/2013 [facility] Ofirmev 1,000 mg, 100 mL, Route: IV, Drug form: INJ, ONCE, Dosing Weight 96.364, kg, PRN Pain, for > or=50 kg, Priority: STAT, Start date: 10/19/13 11:54:00Notes: Infuse over 15 minutes Do not exceed 4gm/day of acetaminophen No Longer Active 10/19/2013 [facility] ceFAZolin 2 gm, 50 mL, Route: IVPB, Drug form: INJ, PRE OP, Start date: 10/18/13 23:00:00, Duration: 1 day, Stop date: 10/19/13 22:59:00 No Longer Active 10/19/2013 [facility] Sodium Chloride 0.9% IV 1,000 mL 1,000 mL, Rate: 25 ml/hr, Infuse over: 40 hr, Route: IV, Dosing Weight 90.909 kg, Total Volume: 1,000, Start date: 02/16/13 13:47:00, Duration: 1 day, Stop date: 02/17/13 13:46:00 Inactive Akshat 02/16/2013 [facility] Allergies, Adverse Reactions, Alerts Substance Category Reaction Severity Reaction type Status Date Reported Comments Source sulfa drugs Assertion Drug allergy Active [facility] Immunizations Immunization Date Given Site Status Last Updated Comments Source diphtheria/pertussis/tetanus tox 12/30/2016 completed Anup [facility], [facility] [place], [facility] [place] influenza virus vaccine, inactivated 12/22/2016 Left Deltoid completed Edwin [facility] [place], [facility], [facility] [place], [facility] [place] influenza virus vaccine, inactivated 02/18/2016 Right deltoid completed [place] [facility] [place],[facility] influenza virus vaccine, inactivated 02/18/2016 Right deltoid completed Davina [facility] [place],[facility] [place] influenza virus vaccine, inactivated 02/18/2016 Right deltoid completed Davina [facility] [place], [facility] [place] influenza virus vaccine, inactivated 02/18/2016 Right deltoid completed [place] [facility] [place],[facility] influenza virus vaccine, inactivated 02/18/2016 Right deltoid completed [place] [facility] [place], [facility] [place] pneumococcal 23-valent vaccine 02/12/2015 Left deltoid completed Davina [facility] [place], [facility] [place] pneumococcal 23-valent vaccine 02/12/2015 Left deltoid completed [place] [facility] [place] pneumococcal 23-valent vaccine 02/12/2015 Left deltoid completed Davina [facility] [place],[facility] [place] pneumococcal 23-valent vaccine 02/12/2015 Left deltoid completed Davina [facility] [place], [facility] pneumococcal 23-valent vaccine 02/12/2015 Left deltoid completed [place] [facility] [place], [place] influenza virus vaccine, inactivated 01/02/2015 Right deltoid completed Davina ROSCOE Rivers, [facility] [place] influenza virus vaccine, inactivated 01/02/2015 Right deltoid completed [place] ROSCOE [place], [place] influenza virus vaccine, inactivated 01/02/2015 Right deltoid completed [place] ROSCOE Rivers,[facility] [place] influenza virus vaccine, inactivated 01/02/2015 Right deltoid completed [place] ROSCOE [facility], [facility] influenza virus vaccine, inactivated 01/02/2015 Right deltoid completed [place] ROSCOE Rivers,[facility] [place] Hx influenza vaccine-unspecified<sup>1</sup> 02/07/2014 Left Deltoid completed GE Result Comment: fluzone (quadrivalent) no preservative (>3 yrs.) [[id number]]. Migrated from OBS ; Data migrated from [employer] on 05/14/2015. ROSCOE Rivers,[facility] [place] Hx influenza vaccine-unspecified<sup>1</sup> 02/07/2014 Left Deltoid completed GE Result Comment: fluzone (quadrivalent) no preservative (>3 yrs.) [[id number]]. Migrated from OBS ; Data migrated from [employer] on 05/14/2015. ROSCOE Rivers,[facility] Hx influenza vaccine-unspecified<sup>1</sup> 02/07/2014 Left Deltoid completed GE Result Comment: fluzone (quadrivalent) no preservative (>3 yrs.) [[id number]]. Migrated from OBS ; Data migrated from [employer] on 05/14/2015. ROSCOE Rivers,[facility] [place] Hx influenza vaccine-unspecified<sup>1</sup> 02/07/2014 Left Deltoid completed GE Result Comment: fluzone (quadrivalent) no preservative (>3 yrs.) [[id number]]. Migrated from OBS ; Data migrated from [employer] on 05/14/2015. ROSCOE [facility], [facility] Hx influenza vaccine-unspecified<sup>1</sup> 02/07/2014 Left Deltoid completed [employer] Result Comment: fluzone (quadrivalent) no preservative (>3 yrs.) [[id number]]. Migrated from [facility] ; Data migrated from [place] on 05/14/2015. SHOAIB Rivers,SHOAIB Albarado Results Order Name Results Value Reference Range Date Interpretation Comments Source Drain/Inj Major Joint/Bursa US Drain/Inj Major Joint/Bursa US EXAM: ULTRASOUND-GUIDED RIGHT KNEE DIAGNOSTIC ASPIRATION DATE: 04/22/2017 12:47 PM CONTINUOUS IMPROVEMENT CONSULTANT INDICATION: - T84.84XA Pain due to internal orthopedic prosthetic devices, implants and grafts, initial encounter COMPARISON: None available. PRE-PROCEDURE: Consent: An informed consent was obtained from the patient, prior to the procedure. Appropriate time out procedures were performed. Preliminary ultrasound demonstrates a small suprapatellar joint effusion with surrounding synovial thickening. PROCEDURE: The skin was prepped and draped in the usual fashion under aseptic precautions. 1% lidocaine was utilized for local anesthesia. Under direct ultrasound guidance a 25 gauge, 1.5 inch needle was advanced to the margin of the joint capsule. Infiltration of lidocaine 1% was performed to produce a cleavage plane. Next, utilizing ultrasound guidance, a 22-gauge, 1.5 inch needle was advanced into the suprapatellar joint effusion and 7 mL of straw-colored fluid was aspirated. Post procedure check imaging demonstrated no residual fluid. No immediate complications. Preprocedure pain score: 5 at rest; 9-10 with activity/10 Postprocedure pain score: 6/10 Dr. Vimal Chaudhary, attending, was present for the procedure. IMPRESSION: Technically successful ultrasound-guided aspiration of the right knee. 04/22/2017 - - This report was dictated by a [employer] Farmworker/Fellow. I have personally reviewed the images as well as the Resident's interpretation and agree with the findings. Read by: Jeffry Turpin DO Resident: Jeffry Turpin DO Dictated Date/time: 04/22/17 13:17 Electronically Signed by: Raffy Chaudhary MD 04/22/17 16:17 FINAL REPORT SHOAIB [place]bar[place] Bone scan 3 phase NM Bone scan 3 phase NM Bone scan 3 phase NM CLINICAL HISTORY: - status post right knee replacement. ; COMPARISON: Right knee series 04/20/2016 TECHNIQUE: 263 mCi of technetium 99m MDP were administered intravenously. Flow, blood pool and delayed images of both knees were performed in AP, PA and lateral projections. IV Site: Right Antecubital FINDINGS: The flow and blood pool images reveal mild increase in tracer activity in the right knee in comparison to the left knee. The delayed images demonstrate greater increase in activity at the left knee joint than the right knee joint. Changes related to knee arthroplasty are evident at the right knee. No abnormal focal accumulation is noted. IMPRESSION: Scintigraphic findings are consistent with patient's history of right knee arthroplasty. If there is clinical concern for infection, further evaluation may be obtained with Technetium White blood cell scan. SL: [id number] 02/23/2017 - - Read by: Minor Sena MD Dictated Date/time: 02/23/17 14:38 Electronically Signed by: Minor Sena MD 02/23/17 14:43 FINAL REPORT [place] Spine lumbar wo contrast MRI Spine lumbar wo contrast MRI EXAM: MRI LUMBAR SPINE WITHOUT CONTRAST DATE: 08/06/2016 1:40 PM CDT . TECHNIQUE: Multiplanar, multisequence MRI lumbar spine without IV contrast COMPARISON: Unavailable FINDINGS: For the purposes of enumeration, the lowest well formed intervertebral disc was counted as L5-S1 on this exam. INTRASPINAL CONTENTS/CONUS: The conus terminates at L1-L2. No definite dural based lesion. VERTEBRAE: The vertebrae are normal in height and alignment. No focal suspicious bone marrow signal abnormality. PARASPINAL SOFT TISSUES: No edema or definite masses. No aortic aneurysm. DISC SPACES, SPINAL CANAL, AND NEURAL FORAMINA: The lumbar pedicles are short. T12-L1. Intervertebral disc height and signal are maintained. Posterior elements are normal. There is no stenosis. L1-L2. Small diffuse disc bulge. Facets are unremarkable. Central canal measures 9 mm without cauda equina crowding. Neural foramina are patent. L2-L3. Intervertebral disc height and signal are maintained. Posterior elements are normal. There is no stenosis. L3-L4. Intervertebral disc height and signal are maintained. There is left greater than right facet hypertrophy. Central canal measures 8 mm. Neural foramina are patent. L4-L5. Intervertebral disc height and signal are maintained. Facets are enlarged. Central canal measures 9 x 9 mm. Lateral recesses are patent. There is moderate narrowing of the right neural foramen. L5-S1. Intervertebral disc height and signal are maintained. Posterior elements are normal. There is no stenosis. IMPRESSION: 1. Mild L4-L5 central canal narrowing most related to facet enlargement and short pedicles 2. Moderate right L4-L5 neural foramen narrowing 08/06/2016 - - Read by: Carrillo Jensen MD Dictated Date/time: 08/06/16 15:00 Electronically Signed by: Carrillo Jensen MD 08/06/16 15:36 FINAL REPORT ROSCOE [place] Toe DX Toe DX EXAM: Toe DX HISTORY: toe pain COMPARISON: None 4 views of the right small toe. IMPRESSION: There is soft tissue swelling. No fracture or dislocation is seen. 07/31/2016 - - Read by: Amy Cheatham MD Dictated Date/time: 07/31/16 15:22 Electronically Signed by: Amy Cheatham MD 07/31/16 15:23 FINAL REPORT [facility] [place] CHEM PANEL Calcium Lvl 8.5 mg/dL 8.5 - 10.5 04/21/2016 [facility] CHEM PANEL Chloride Lvl 109 meq/L 95 - 109 04/21/2016 [facility] CHEM PANEL CO2 25 meq/L 24 - 32 04/21/2016 [facility] CHEM PANEL eGFR 73 mL/min/1.73m2 04/21/2016 Result Comment: The eGFR is calculated using the CKD-EPI formula. In most young, healthy individuals the eGFR will be >90 mL/min/1.73m2. The eGFR declines with age. An eGFR of 60-89 may be normal in some populations, particularly the elderly, for whom the CKD-EPI formula has not been extensively validated. Use of the eGFR is not recommended in the following populations: Individuals with unstable creatinine concentrations, including patients and those with serious co-morbid conditions. Patients with extremes in muscle mass or diet. The data above are obtained from the National Kidney Disease Education Program (NKDEP) which additionally recommends that when the eGFR is used in patients with extremes of body mass index for purposes of drug dosing, the eGFR should be multiplied by the estimated BMI. [facility] CHEM PANEL Glucose Lvl 103 mg/dL 70 - 99 04/21/2016 [facility] CHEM PANEL BUN 14 mg/dL 7 - 22 04/21/2016 [facility] CHEM PANEL Creatinine Lvl 0.92 mg/dL 0.50 - 1.40 04/21/2016 [facility] CHEM PANEL Sodium Lvl 142 meq/L 135 - 145 04/21/2016 [facility] CHEM PANEL Potassium Lvl 5.0 meq/L 3.5 - 5.1 04/21/2016 [facility] CHEM PANEL AGAP 13.0 meq/L 10.0 - 20.0 04/21/2016 [facility] HEMATOLOGY MCV 92.7 fL 80.0 - 98.0 04/21/2016 [facility] HEMATOLOGY Hgb 12.9 g/dL 12.0 - 16.0 04/21/2016 [facility] HEMATOLOGY Hct 39.9 % 36.0 - 48.0 04/21/2016 [facility] HEMATOLOGY Platelet 297 K/CMM 133 - 450 04/21/2016 [facility] MCH 29.9 pg 27.0 - 31.0 04/21/2016 [facility] RDW 13.5 % 11.5 - 14.5 04/21/2016 [facility] MCHC 32.3 g/dL 32.0 - 36.0 04/21/2016 [facility] MPV 7.0 fL 7.4 - 10.4 04/21/2016 [facility] RBC 4.30 M/CMM 4.20 - 5.40 04/21/2016 [facility] WBC 15.4 K/CMM 3.7 - 10.4 04/21/2016 [facility] Lymphocytes # 1.9 K/CMM 1.0 - 5.5 04/21/2016 [facility] Segs-Bands # 12.5 K/CMM 1.5 - 8.1 04/21/2016 [facility] Lymphocytes 12.6 % 20.0 - 40.0 04/21/2016 [facility] HEMATOLOGY Segs 81.7 % 45.0 - 75.0 04/21/2016 [facility] Monocytes 5.4 % 2.0 - 12.0 04/21/2016 [facility] HEMATOLOGY Basophils 0.2 % 0.0 - 1.0 04/21/2016 [facility] HEMATOLOGY Eosinophils 0.1 % 0.0 - 4.0 04/21/2016 [facility] Monocytes # 0.8 K/CMM 0.0 - 0.8 04/21/2016 [facility] BLOOD BANK RESULTS ABO/Rh A POS 04/20/2016 [facility] BLOOD BANK RESULTS Antibody Scrn Negative (04/20/16 9:43 AM) 04/20/2016 [facility] Knee 1-2 Views unilateral DX Knee 1-2 Views unilateral DX Patient Name: AZUL ETIENNE : 1965; Age: 50 years y/o Female MR: [id number] * RIGHT KNEE, postoperative 2 views HISTORY: Right knee arthritis, status post right knee arthroplasty. Technique: Frontal and lateral radiographs of the right knee were obtained. FINDINGS: The right total knee prosthesis is in good position. There is no evidence of unexpected fracture or other complication. There is postoperative soft tissue gas. There are anterior surgical skin raúl. A surgical drain is noted. IMPRESSION: 1. Status post right knee arthroplasty. The prosthesis is in good position without evidence of complication. SL: [id number] 04/20/2016 - - Read by: Melvin Zavala MD Dictated Date/time: 04/20/16 11:35 Electronically Signed by: Melvin Zavala MD 04/20/16 11:35 FINAL REPORT [facility] BACTERIAL - SEROLOGY MRSA by PCR Negative (04/07/16 5:29 PM) 04/07/2016 [facility] BLOOD BANK RESULTS Antibody Scrn Negative (04/07/16 5:29 PM) 04/07/2016 [facility] BLOOD BANK RESULTS ABO/Rh A POS 04/07/2016 [facility] ELECTROLYTES AGAP 9.3 meq/L 10.0 - 20.0 04/07/2016 [facility] ELECTROLYTES eGFR 84 mL/min/1.73m2 04/07/2016 Result Comment: The eGFR is calculated using the CKD-EPI formula. In most young, healthy individuals the eGFR will be >90 mL/min/1.73m2. The eGFR declines with age. An eGFR of 60-89 may be normal in some populations, particularly the elderly, for whom the CKD-EPI formula has not been extensively validated. Use of the eGFR is not recommended in the following populations: Individuals with unstable creatinine concentrations, including patients and those with serious co-morbid conditions. Patients with extremes in muscle mass or diet. The data above are obtained from the National Kidney Disease Education Program (NKDEP) which additionally recommends that when the eGFR is used in patients with extremes of body mass index for purposes of drug dosing, the eGFR should be multiplied by the estimated BMI. [facility] ELECTROLYTES Potassium Lvl 3.3 meq/L 3.5 - 5.1 04/07/2016 [facility] ELECTROLYTES Creatinine Lvl 0.82 mg/dL 0.50 - 1.40 04/07/2016 [facility] ELECTROLYTES Sodium Lvl 140 meq/L 135 - 145 04/07/2016 [facility] ELECTROLYTES BUN 7 mg/dL 7 - 22 04/07/2016 [facility] ELECTROLYTES Glucose Lvl 91 mg/dL 70 - 99 04/07/2016 [facility] ELECTROLYTES Calcium Lvl 8.4 mg/dL 8.5 - 10.5 04/07/2016 [place] ELECTROLYTES Chloride Lvl 105 meq/L 95 - 109 04/07/2016 [place] ELECTROLYTES CO2 29 meq/L 24 - 32 04/07/2016 [facility] HEMATOLOGY PTT 29.3 s 22.9 - 35.8 04/07/2016 [facility] HEMATOLOGY PT 12.7 s 12.0 - 14.7 04/07/2016 [facility] HEMATOLOGY INR 0.93 0.85 - 1.17 04/07/2016 [facility] HEMATOLOGY MPV 7.4 fL 7.4 - 10.4 04/07/2016 [facility] HEMATOLOGY Hgb 14.0 g/dL 12.0 - 16.0 04/07/2016 [facility] HEMATOLOGY RBC 4.66 M/CMM 4.20 - 5.40 04/07/2016 [facility] HEMATOLOGY WBC 8.0 K/CMM 3.7 - 10.4 04/07/2016 [facility] HEMATOLOGY MCH 30.0 pg 27.0 - 31.0 04/07/2016 [facility] HEMATOLOGY Platelet 351 K/CMM 133 - 450 04/07/2016 [facility] HEMATOLOGY RDW 13.3 % 11.5 - 14.5 04/07/2016 [facility] HEMATOLOGY Hct 42.7 % 36.0 - 48.0 04/07/2016 [facility] HEMATOLOGY MCHC 32.7 g/dL 32.0 - 36.0 04/07/2016 [facility] HEMATOLOGY MCV 91.8 fL 80.0 - 98.0 04/07/2016 [facility] HEMATOLOGY Segs-Bands # 4.1 K/CMM 1.5 - 8.1 04/07/2016 [facility] HEMATOLOGY Lymphocytes # 3.1 K/CMM 1.0 - 5.5 04/07/2016 [facility] HEMATOLOGY Eosinophils # 0.3 K/CMM 0.0 - 0.5 04/07/2016 [facility] HEMATOLOGY Lymphocytes 39.1 % 20.0 - 40.0 04/07/2016 [facility] HEMATOLOGY Monocytes # 0.4 K/CMM 0.0 - 0.8 04/07/2016 [facility] HEMATOLOGY Monocytes 5.6 % 2.0 - 12.0 04/07/2016 [facility] HEMATOLOGY Basophils 0.4 % 0.0 - 1.0 04/07/2016 [facility] HEMATOLOGY Segs 51.1 % 45.0 - 75.0 04/07/2016 [facility] HEMATOLOGY Eosinophils 3.8 % 0.0 - 4.0 04/07/2016 [facility] URINE AND STOOL UA Sq Epi Occasional /LPF Few /LPF 04/07/2016 [facility] URINE AND STOOL UA Blood Negative (04/07/16 5:29 PM) Negative 04/07/2016 [facility] URINE AND STOOL UA Leuk Est Negative (04/07/16 5:29 PM) Negative 04/07/2016 [facility] URINE AND STOOL UA Nitrite Negative (04/07/16 5:29 PM) Negative 04/07/2016 [facility] URINE AND STOOL UA Spec Grav 1.010 <=1.030 04/07/2016 [facility] URINE AND STOOL UA Turbidity Clear (04/07/16 5:29 PM) Clear 04/07/2016 [facility] URINE AND STOOL UA Protein Negative mg/dL Negative mg/dL 04/07/2016 [facility] URINE AND STOOL UA Ketones Negative mg/dL Negative mg/dL 04/07/2016 [facility] URINE AND STOOL UA Bili Negative *NA* (04/07/16 5:29 PM) Negative 04/07/2016 [facility] URINE AND STOOL UA pH 5.0 5.0 - 8.0 04/07/2016 [facility] URINE AND STOOL UA Glucose Negative mg/dL Negative mg/dL 04/07/2016 [facility] URINE AND STOOL UA Urobilinogen <=1.0 mg/dL 0.1 - 1.0 04/07/2016 [facility] URINE AND STOOL UA RBC null 0 - 2 04/07/2016 [facility] URINE AND STOOL UA Color Ltyellow 04/07/2016 [facility] URINE AND STOOL UA WBC 1 /HPF 0 - 5 04/07/2016 [facility] Chest 2 views DX Chest 2 views DX Two-view chest Patient Name: AZUL ETIENNE : 1965; Age: 50 years Female MR: [id number] Study: Chest 2 views DX Order Time: 04/07/2016 5:10 PM CONTINUOUS 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 COMPARISON: 02/18/2016. FINDINGS: Views: 2 LUNGS: There is normal lung volume. There are no suspicious interstitial/airspace opacities. There are no pleural effusions. There is no pneumothorax. The pulmonary vasculature is normal. MEDIASTINUM: The cardiac silhouette is normal. The trachea is midline. BONES: Mild upper thoracic spine leftward curvature. IMPRESSION: No radiographic evidence of acute pulmonary disease. SL: [id number] 04/07/2016 - - Read by: Jeffry Solano MD Dictated Date/time: 04/07/16 23:26 Electronically Signed by: Jeffry Solano MD 04/07/16 23:27 FINAL REPORT [facility] Chest 2 views DX Chest 2 views DX CHEST RADIOGRAPH 2 VIEWS INDICATION: Cough COMPARISON: None DISCUSSION: The cardiomediastinal silhouette and pulmonary vasculature are within normal limits. No consolidation, pleural effusion, or pneumothorax are visible. No suspicious pulmonary nodules are identified. No acute bony abnormalities are seen. IMPRESSION: No acute intrathoracic abnormalities are visualized. SL:16 02/18/2016 - - Read by: Terrence Campbell MD Dictated Date/time: 02/18/16 15:41 Electronically Signed by: Terrence Campbell MD 02/18/16 15:42 FINAL REPORT [facility] [place] Abdomen/Pelvis w/wo IV contrast CT Abdomen/Pelvis w/wo IV contrast CT CT ABDOMEN AND PELVIS WITHOUT AND WITH CONTRAST HISTORY: 49-year-old female with left lower quadrant pain. PROCEDURE: CT scan of the abdomen and pelvis with contrast was done. Creatinine level was 0.9 mg/dl and eGFR was 76 ml/min. Dilute oral and IV contrast, 100 cc Omnipaque 300 used. Postcontrast and delayed series were obtained with coronal and sagittal reformats. The CT dose was 1496 mGy/cm. Comparison: None. Abdomen findings: The bases of both lung appear normal. The liver has normal morphology and homogeneous attenuation. The gallbladder and bile ducts are unremarkable. The pancreas has normal attenuation and dimensions. The spleen has normal volume and expected enhancement. The stomach, duodenum, small bowel, appendiceal region and colon are normal. The rectosigmoid is decompressed with mild thickened villegas. Kidneys in contrast and delayed phase appear normal, no hydronephrosis or lithiasis seen. Adrenals have normal morphology. The abdominal aorta and iliac vessels appear normal in caliber. There is no retroperitoneal adenopathy. Osseous structures, segments of the thoracic and lumbar spine appear normal. Pelvic findings: The urinary bladder is normal. Uterus and adnexa are unremarkable and no mass noted. IMPRESSION: Normal abdomen and pelvis CT. 08/22/2015 - - Read by: Levar Kinsey MD Dictated Date/time: 08/22/15 13:30 Electronically Signed by: Levar Kinsey 08/22/15 13:48 FINAL REPORT [facility] Digital Mammo Screening Denis MA Digital Mammo Screening Denis MA - DIGITAL MAMMO SCREENING DENIS MA BILATERAL DIGITAL SCREENING MAMMOGRAM WITH CAD: 03/12/2015 CLINICAL: Routine. Current study was evaluated with a Computer Aided Detection (CAD) system. Comparison is made to exams dated: 11/27/2010 mammogram - [facility] and 02/17/2006 mammogram - [facility]. There are scattered fibroglandular densities in both breasts. No significant masses, calcifications, or other findings are seen in either breast. There has been no significant interval change. IMPRESSION: BENIGN There is no mammographic evidence of malignancy. A 1 year screening mammogram is recommended. Sushila Maynard M.D. ms/penrad:03/13/2015 11:35:55 Layout Man: Violetta ELLINGTON([place]), [facility] This exam was dictated and interpreted by [id number] for William. letter sent: Normal exam Mammogram BI-RADS: 2 Benign 03/12/2015 - - Read by: Sushila Maynard MD Dictated Date/time: 03/13/15 11:35 Electronically Signed by: Sushila Maynard MD 03/13/15 11:35 FINAL REPORT [facility] CHEM PANEL Calcium Lvl 8.4 mg/dL 8.5 - 10.5 10/19/2013 [facility] CHEM PANEL Potassium Lvl 3.8 meq/L 3.5 - 5.1 10/19/2013 [facility] CHEM PANEL Chloride Lvl 106 meq/L 95 - 109 10/19/2013 [facility] CHEM PANEL CO2 21 meq/L 24 - 32 10/19/2013 [facility] CHEM PANEL BUN 11 mg/dL 7 - 22 10/19/2013 [facility] CHEM PANEL Creatinine Lvl 0.7 mg/dL 0.5 - 1.4 10/19/2013 [facility] CHEM PANEL Sodium Lvl 139 meq/L 135 - 145 10/19/2013 [facility] CHEM PANEL eGFR 104 mL/min/1.73m2 10/19/2013 1Result Comment: The eGFR is calculated using the CKD-EPI formula. In most young, healthy individuals the eGFR will be >90 mL/min/1.73m2. The eGFR declines with age. An eGFR of 60-89 may be normal in some populations, particularly the elderly, for whom the CKD-EPI formula has not been extensively validated. Use of the eGFR is not recommended in the following populations: Individuals with unstable creatinine concentrations, including patients and those with serious co-morbid conditions. Patients with extremes in muscle mass or diet. The data above are obtained from the National Kidney Disease Education Program (NKDEP) which additionally recommends that when the eGFR is used in patients with extremes of body mass index for purposes of drug dosing, the eGFR should be multiplied by the estimated BMI. [facility] CHEM PANEL Glucose Lvl 99 mg/dL 70 - 99 10/19/2013 2Interpretive Data: Adult reference range values reflect the clinical guidelines of the [place] [employer]. [facility] CHEM PANEL AGAP 15.8 meq/L 10.0 - 20.0 10/19/2013 [facility] HEMATOLOGY Segs-Bands # 7.3 K/CMM 1.5 - 8.1 10/19/2013 [facility] HEMATOLOGY Monocytes # 0.6 K/CMM 0.0 - 0.8 10/19/2013 [facility] HEMATOLOGY Lymphocytes # 3.1 K/CMM 1.0 - 5.5 10/19/2013 [facility] HEMATOLOGY Segs 63.2 % 45.0 - 75.0 10/19/2013 [facility] HEMATOLOGY Lymphocytes 26.7 % 20.0 - 40.0 10/19/2013 [facility] HEMATOLOGY Basophils 0.6 % 0.0 - 1.0 10/19/2013 [facility] HEMATOLOGY Monocytes 5.2 % 2.0 - 12.0 10/19/2013 [facility] HEMATOLOGY Eosinophils 4.3 % 0.0 - 4.0 10/19/2013 [facility] HEMATOLOGY Eosinophils # 0.5 K/CMM 0.0 - 0.5 10/19/2013 [facility] HEMATOLOGY Basophils # 0.1 K/CMM 0.0 - 0.2 10/19/2013 [facility] HEMATOLOGY PTT 30.0 s 22.9 - 35.8 10/19/2013 4Interpretive Data: Heparin Therapeutic Range: 57 - 92 Seconds [facility] HEMATOLOGY PT 12.9 s 12.0 - 14.7 10/19/2013 [facility] HEMATOLOGY INR 0.98 0.85 - 1.17 10/19/2013 3Interpretive Data: RECOMMENDED RANGES FOR PROTIME INR: 2.0-3.0 for most medical and surgical thromboembolic states. 2.5-3.5 for artificial heart valves and recurrent embolism. INR SHOULD BE USED ONLY FOR PATIENTS ON STABLE ANTICOAGULANT THERAPY. [facility] HEMATOLOGY Hgb 14.3 g/dL 12.0 - 16.0 10/19/2013 [facility] HEMATOLOGY WBC 11.5 K/CMM 3.7 - 10.4 10/19/2013 [facility] HEMATOLOGY Hct 43.9 % 36.0 - 48.0 10/19/2013 [facility] HEMATOLOGY MCH 27.5 pg 27.0 - 31.0 10/19/2013 [facility] HEMATOLOGY MCV 84.6 fL 81.0 - 99.0 10/19/2013 [facility] HEMATOLOGY Platelet 327 K/CMM 133 - 450 10/19/2013 [facility] HEMATOLOGY RDW 15.9 % 11.5 - 14.5 10/19/2013 [facility] HEMATOLOGY MCHC 32.6 g/dL 32.0 - 36.0 10/19/2013 [facility] HEMATOLOGY MPV 7.4 fL 7.4 - 10.4 10/19/2013 [facility] HEMATOLOGY RBC 5.20 M/CMM 4.20 - 5.40 10/19/2013 [facility] Spine cervical wo contrast MRI Spine cervical wo contrast MRI MRI CERVICAL SPINE WITHOUT CONTRAST TECHNIQUE: Multiplanar multisequence imaging of the cervical spine was performed without administration of intravenous gadolinium. COMPARISON: 07/14/2013 radiograph exam. FINDINGS: Multilevel disc desiccation is seen. C2-C3: Unremarkable. C3-C4: Minimal disc bulge is present. No central canal or foraminal stenosis. C4-C5: Minimal disc bulge is seen. There is mild left facet osteoarthritis. Mild left foraminal stenosis is present. There is no central canal stenosis. C5-C6: Unremarkable. C6-C7: Unremarkable. C7-T1: Unremarkable. The cervical cord signal is unremarkable without MRI evidence of myelopathy. IMPRESSION: 1. Mild upper to mid cervical spine degenerative changes as above. No focal disc herniation. 08/18/2013 - - Read by: Cayetano Mathis MD Dictated Date/time: 08/18/13 09:28 Electronically Signed by: Cayetano Mathis MD 08/18/13 09:47 [facility]AL [facility] [facility] [place] Sinus wo contrast CT Sinus wo contrast CT CT paranasal sinuses without contrast with navigation protocol Clinical: Allergic rhinitis. Comparison: None available. Finding: The DLP is 627 mGy - cm. Maxillary: Mild polypoid mucosal thickening is present within the right maxillary sinus alveolar recess. Minimal mucosal thickening is also seen in the left maxillary sinus alveolar recess. No air-fluid level. Sphenoid: Well-aerated. Ethmoid: Moderate mucosal thickening present involving the right middle ethmoid air cells, without air-fluid level. The remainder of the ethmoid air cells are well aerated. Frontal: Absent left frontal sinus. Hypoplastic right frontal sinus is well aerated. Nasal cavity/Ostiomeatal units: There is nasal septal deviation to the left measuring 2.9 mm from the midline. There is paradoxical curvature of the right middle nasal turbinate. Minimal right middle nasal turbinate pneumatization or johnathon bullosa is seen, measuring approximately 4.4 mm in the craniocaudal dimension and 1.4 mm transversely. Moderate to significant nasal turbinate mucosal hypertrophy is present. There is mucosal thickening within the bilateral ethmoid infundibula and maxillary ostia, with moderate to severe stenosis of the right ethmoid infundibulum and maxillary ostium, and mild stenosis of the left. Soft tissues/Mastoids: Right mastoid inferior minimal mucosal disease is seen without coalescence. The soft tissues appear unremarkable. IMPRESSION: 1. Mild bilateral maxillary mucosal disease and moderate right ethmoid mucosal disease. No air-fluid level. 2. Nasal septal deviation to the left as above. 3. Right middle nasal turbinate paradoxical curvature and pneumatization as above. 4. Significant nasal turbinate mucosal hypertrophy. 5. 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 Mild stenosis of the left ethmoid infundibulum. 08/17/2013 - - Read by: Cayetano Mathis MD Dictated Date/time: 08/17/13 11:25 Electronically Signed by: Cayetano Mathis MD 08/17/13 13:52 FINAL REPORT [facility] Knee wo contrast MRI Knee wo contrast MRI EXAM: MRI of the right knee without contrast. HISTORY: Right knee pain COMPARISON: X-rays on 06/03/2012 TECHNIQUE: Multiplanar, multisequence MRI of the right knee without contrast. FINDINGS: Intercondylar notch: There is mild degeneration of the distal ACL. The ACL and PCL are intact. There are small intraosseous cystic changes in the tibial spine. Collateral ligaments: The medial and lateral collateral ligaments are intact. Medial compartment: There is attenuation of the body of the medial meniscus, likely secondary to prior partial medial meniscectomy. There is mild intrasubstance degeneration in the posterior horn of the medial meniscus. There is no discrete medial meniscal tear. There is full-thickness cartilage loss along the central weight-bearing portion of the medial tibial plateau with subchondral bone marrow edema. There is also partial-thickness cartilage loss along the central weight-bearing portion of the medial femoral condyle with minimal subchondral marrow edema. Lateral compartment: The lateral meniscus is intact. There is no chondral defect or subchondral marrow edema in the lateral compartment. The posteromedial and posterolateral corner structures are intact. Patellofemoral compartment: The patellar and quadriceps tendons are intact. There is slight chondral heterogeneity along the medial patellar facet. There is no chondral defect or subchondral marrow edema in the patellofemoral compartment. Other findings: There is a small to moderate joint effusion. There is a small popliteal cyst posteromedially. No osteochondral body is seen. There is a medial plica. IMPRESSION: 1. Attenuation of the body of the medial meniscus, likely secondary to prior partial medial meniscectomy. There is mild intrasubstance degeneration in the posterior horn of the medial meniscus. No discrete meniscal tear. 2. Full-thickness cartilage loss along the central weight-bearing portion of the medial tibial plateau with subchondral bone marrow edema. There is also partial-thickness cartilage loss along the central weight-bearing portion of the medial femoral condyle with minimal subchondral marrow edema. 3. Mild degeneration of the distal ACL. No ligament tear. 4. Small to moderate joint effusion and small popliteal cyst. 07/24/2013 - - Read by: Joshua Benjamin Dictated Date/time: 07/24/13 11:17 Electronically Signed by: Joshua Benjamin MD 07/24/13 11:47 FINAL REPORT [facility] Spine cervical 2 or 3 views Spine cervical 2 or 3 views CERVICAL SPINE SERIES CLINICAL HISTORY: Neck pain. COMPARISON IMAGING: None. FINDINGS: Three views of the cervical spine were obtained. The lateral view adequately includes C1-C7. Vertebral body heights and alignment are maintained. No obvious fracture or subluxation is identified. Prevertebral soft tissues are unremarkable. IMPRESSION: No significant abnormality. 07/14/2013 - - Read by: Marky Sarabia Dictated Date/time: 07/14/13 11:09 Electronically Signed by: Marky Sarabia MD 07/14/13 11:09 FINAL REPORT [facility] Vital Signs Vital Sign Value Date Comments Source Systolic (mm Hg) 122 06/13/2018 [facility] Diastolic (mm Hg) 78 06/13/2018 [facility] Respitory Rate 18 06/13/2018 [facility] Systolic (mm Hg) 131 06/13/2018 [facility] Diastolic (mm Hg) 74 06/13/2018 [facility] Respitory Rate 18 06/13/2018 [facility] Systolic (mm Hg) 136 06/13/2018 [facility] Diastolic (mm Hg) 70 06/13/2018 [facility] Respitory Rate 20 06/13/2018 [facility] Height 162.56 cm 06/10/2018 [facility] Weight 95.114 06/10/2018 [facility] BMI Calculated 35.99 06/10/2018 [facility] Heart Rate 70 06/10/2018 [facility] Temperature Oral (F) 98.1 F 06/10/2018 [facility] BMI Calculated 37.94 05/11/2018 [facility] Weight 94.091 05/11/2018 [facility] Height 157.48 cm 05/11/2018 [facility] Temperature Oral (F) 98.6 F 05/11/2018 [facility] Heart Rate 78 05/11/2018 [facility] Systolic (mm Hg) 132 05/11/2018 [facility] Diastolic (mm Hg) 88 05/11/2018 [facility] Weight 98.636 10/19/2017 [facility] BMI Calculated 41.09 10/19/2017 [facility] Height 154.94 cm 10/19/2017 [facility] Heart Rate 81 10/19/2017 [facility] Temperature Oral (F) 98.9 F 10/19/2017 [facility] Systolic (mm Hg) 126 10/19/2017 [facility] Diastolic (mm Hg) 86 10/19/2017 [facility] Heart Rate 88 08/10/2017 [facility] Temperature Oral (F) 98.6 F 08/10/2017 [facility] Height 157.48 cm 08/10/2017 [facility] Systolic (mm Hg) 128 08/10/2017 [facility] Diastolic (mm Hg) 88 08/10/2017 [facility] BMI Calculated 40.69 08/10/2017 [facility] Weight 100.909 08/10/2017 [facility] Weight 94.176 07/01/2017 [facility] Height 157.48 cm 07/01/2017 [facility] BMI Calculated 37.97 07/01/2017 [facility] Systolic (mm Hg) 151 07/01/2017 [facility] Diastolic (mm Hg) 103 07/01/2017 [facility] Temperature Oral (F) 98.3 F 07/01/2017 [facility] Heart Rate 76 07/01/2017 [facility] BMI Calculated 39.77 06/01/2017 [facility] Weight 98.636 06/01/2017 [facility] Heart Rate 72 06/01/2017 [facility] Temperature Oral (F) 98.0 F 06/01/2017 [facility] Height 157.48 cm 06/01/2017 [facility] Systolic (mm Hg) 100 06/01/2017 [facility] Diastolic (mm Hg) 68 06/01/2017 [facility] Heart Rate 87 04/21/2016 [facility] Systolic (mm Hg) 125 04/21/2016 [facility] Diastolic (mm Hg) 82 04/21/2016 [facility] Temperature Oral (F) 97.9 F 04/21/2016 [facility] Respitory Rate 16 04/21/2016 [facility] Heart Rate 70 04/21/2016 [facility] Systolic (mm Hg) 120 04/21/2016 [facility] Respitory Rate 16 04/21/2016 [facility] Temperature Oral (F) 97.7 F 04/21/2016 [facility] Diastolic (mm Hg) 70 04/21/2016 [facility] Respitory Rate 16 04/21/2016 [facility] Systolic (mm Hg) 129 04/21/2016 [facility] Diastolic (mm Hg) 82 04/21/2016 [facility] Temperature Oral (F) 98.4 F 04/21/2016 [facility] Heart Rate 87 04/21/2016 [facility] Height 157.48 cm 04/20/2016 [facility] BMI Calculated 29.33 04/20/2016 [facility] Weight 72.727 04/20/2016 [facility] Weight 75.727 04/07/2016 [facility] Height 157.48 cm 04/07/2016 [facility] BMI Calculated 30.54 04/07/2016 [facility] Heart Rate 86 10/19/2013 [facility] Diastolic (mm Hg) 68 10/19/2013 [facility] Respitory Rate 20 10/19/2013 [facility] Systolic (mm Hg) 146 10/19/2013 [facility] Diastolic (mm Hg) 52 10/19/2013 [facility] Systolic (mm Hg) 111 10/19/2013 [facility] Respitory Rate 19 10/19/2013 [facility] Diastolic (mm Hg) 100 10/19/2013 [facility] Systolic (mm Hg) 139 10/19/2013 [facility] Respitory Rate 31 10/19/2013 [facility] Heart Rate 63 10/19/2013 [facility] BMI Calculated 37.63 10/19/2013 [facility] Weight 96.364 10/19/2013 [facility] Height 160.02 cm 10/19/2013 [facility] Height 160.02 cm 10/04/2013 [facility] BMI Calculated 37.63 10/04/2013 [facility] Weight 96.364 10/04/2013 [facility] Diastolic (mm Hg) 73 02/16/2013 [facility] Respitory Rate 18 02/16/2013 [facility] Systolic (mm Hg) 113 02/16/2013 [facility] Diastolic (mm Hg) 72 02/16/2013 [facility] Respitory Rate 18 02/16/2013 [facility] Systolic (mm Hg) 119 02/16/2013 [facility] Respitory Rate 18 02/16/2013 [facility] Systolic (mm Hg) 102 02/16/2013 [facility] Diastolic (mm Hg) 56 02/16/2013 [facility] Heart Rate 62 02/16/2013 [facility] Height 157.48 cm 02/15/2013 [facility] Weight 90.909 02/15/2013 [facility] Encounters Location Location Details Encounter Type Encounter Number Reason For Visit Attending Provider ADM Date DC Date Status Source [facility] Outpatient [id number] LJ CARDENASMIGUEL 01/10/2013 01/10/2013 Active [facility] JOYA [id number] 789.06/553.3/787.01/536.3 LJ LAGUNA 02/16/2013 02/16/2013 Active [facility] TH [id number] CARPAL TUNNEL/KNEE BACK TOAN KING 02/24/2013 Active [facility] [place] [facility] [place] [facility] [id number] _[id number] Toan King 07/14/2013 07/15/2013 [facility] [place] [facility] [place] [facility] [id number] Lupe Lin Jr 07/24/2013 07/25/2013 [facility] [place] [facility] [place] [facility] [id number] Rand Mcginnis 08/17/2013 08/18/2013 [facility] [place] [facility] [place] [facility] [id number] Bouchra Orr 08/18/2013 08/19/2013 [facility] [place] [facility] OBS Day Surgery [id number] Rand Mcginnis 10/19/2013 10/20/2013 [facility] Outpatient [id number] KUN AMARO 01/02/2015 Active [facility] Outpatient [id number] KUN AMARO 02/12/2015 Active [facility] [place] [facility] [id number] Kun Amaro 03/12/2015 03/13/2015 [facility] [place] Outpatient [id number] LEROY SANDOVAL 06/27/2015 Active [facility] Outpatient [id number] KUN AMARO 07/17/2015 Active [facility] Outpatient [id number] KUN AMARO 08/06/2015 Active [facility] Outpatient [id number] KUN PREM 08/13/2015 Active [facility] [place] [facility] [id number] Kun Chavezina 08/22/2015 08/23/2015 [facility] [place] Outpatient [id number] MARILEE LEBRON 11/15/2015 Active [facility] Outpatient [id number] KUN PREM 02/18/2016 Active [facility] Outpatient Imaging [place] [facility] [id number] Kun Prem 02/18/2016 02/19/2016 OPID [facility] Inpatient [id number] Avery Quach 04/20/2016 04/21/2016 [facility] [place] OP Therapy Patients [id number] Avery Quach 04/22/2016 05/22/2016 [facility] [place] Outpatient [id number] LEROY SANDOVAL 05/13/2016 Active [facility] Outpatient [id number] LEROY SANDOVAL 05/15/2016 Active [facility] Outpatient [id number] KUN PREM 05/20/2016 Active [facility] [place] OP Therapy Patients [id number] Avery Quach 05/25/2016 06/24/2016 [facility] [place] Outpatient [id number] KUN AMARO 06/25/2016 [facility] [place] OP Therapy Patients [id number] Otilio oMseley 07/03/2016 08/02/2016 [facility] [place] Outpatient [id number] KUN AMARO 07/07/2016 Active [facility] Outpatient [id number] CAT RUDD 07/31/2016 Active [facility] [place] [facility] [id number] Cat Rudd 07/31/2016 08/01/2016 [facility] [place] [facility] [place] [facility] [id number] Otilio Moseley 08/04/2016 09/03/2016 [facility] [place] [facility] [place] [facility] [id number] Sage Kenyon 08/06/2016 08/07/2016 [facility] [place] Outpatient [id number] CAT RUDD 09/02/2016 Active [facility] Outpatient [id number] CAT RUDD 10/01/2016 Active [facility] [place] OP Therapy Patients [id number] Otilio Knowless 10/07/2016 11/06/2016 [facility] [place] [facility] [place] [facility] Patients [id number] Otilio Aguilareks 11/06/2016 12/06/2016 [facility] [place] [facility] [place] [facility] Therapy Patients [id number] Otilio Knowless 12/16/2016 01/15/2017 [facility] [place] Outpatient [id number] CAT RUDD 12/22/2016 Active [facility] Outpatient [id number] Lupe Lin Jr 02/23/2017 02/24/2017 [facility] Outpatient [id number] BÁRBARA IRWIN 03/10/2017 Active [facility] Outpatient [id number] BÁRBARA IRWIN 03/10/2017 Active [facility] [place] Outpatient [id number] Kun Amaro 03/10/2017 03/11/2017 [facility] [place] Phone Message [id number] 03/18/2017 03/20/2017 [facility] Out[facility] [place] [facility] Services [id number] Darwin Red 04/22/2017 04/23/2017 [facility] [place] Phone Message [id number] 05/06/2017 05/08/2017 [facility] Outpatient [id number] BÁRBARA IRWIN 06/01/2017 Active [facility] [place] Outpatient [id number] Kun Amaro 06/01/2017 06/02/2017 [facility] Outpatient [id number] CAT RUDD 07/01/2017 Active [facility] [place] Outpatient [id number] Kun Amaro 07/01/2017 07/02/2017 [facility] [place] [facility] Therapy Patients [id number] Darwin Red 07/07/2017 08/06/2017 [facility] [place] [facility] [place] Phone Message [id number] 07/23/2017 07/25/2017 [facility] Outpatient [id number] BÁRBARA IRWIN 08/10/2017 Active [facility] [place] Outpatient [id number] Bárbara Irwin 08/10/2017 08/11/2017 [facility] [place] OP Therapy Patients [id number] Darwin Red 08/16/2017 09/15/2017 [facility] [place] [facility] [place] Phone Message [id number] 09/01/2017 09/03/2017 [facility] [place] [facility] [id number] Bárbara Irwin 09/16/2017 09/17/2017 [facility] [place] Outpatient [id number] BÁRBARA IRWIN 10/19/2017 Active [facility] [place] Outpatient [id number] Kun Amaro 10/19/2017 10/20/2017 [facility] Recurring [id number] Cat Rudd 12/21/2017 12/21/2017 [facility] Outpatient [id number] CAT RUDD 03/30/2018 Active [facility] Outpatient [id number] CAT RUDD 05/03/2018 [facility] [place] Ambulatory Pre-Reg [id number] Cat Rudd 05/03/2018 05/03/2018 [facility] Outpatient [id number] CAT RUDD 05/05/2018 [facility] [place] Ambulatory Pre-Reg [id number] Cat Rudd 05/05/2018 05/05/2018 [facility] Outpatient [id number] CAT RUDD 05/11/2018 Active [facility] [place] Outpatient [id number] Kun Amaro 05/11/2018 05/12/2018 [facility] Bedded Outpatient [id number] Lj Laguna 06/13/2018 06/13/2018 [facility] Outpatient [id number] 836.0 LUPE LIN JR Active [facility] Procedures Procedure Code Date Perfomer Comments Source Arthrocentesis, aspiration and/or injection, major joint or bursa (eg, shoulder, hip, knee, subacromial bursa); with ultrasound guidance, with permanent recording and reporting 04/22/2017 [facility] [place] Colonoscopy<sup>1</sup> [id number] 04/12/2017 normal [facility] [place] Colonoscopy<sup>1</sup> [id number] 04/12/2017 [facility] Colonoscopy<sup>1</sup> [id number] 04/12/2017 normal [facility] Colonoscopy<sup>1</sup> [id number] 04/12/2017 normal [facility] [place] Colonoscopy<sup>1</sup> [id number] 04/12/2017 normal [facility] Mammogram<sup>2</sup> [id number] 04/12/2014 normal [facility] [place] Mammogram<sup>2</sup> [id number] 04/12/2014 [facility] Mammogram<sup>2</sup> [id number] 04/12/2014 normal [facility] [place] Mammogram<sup>2</sup> [id number] 04/12/2014 normal [facility] [place] Mammogram<sup>2</sup> [id number] 04/12/2014 normal [facility] Arthroscopy of knee [id number] [facility] [place] Carpal tunnel release [id number] [facility] [place] Arthroscopy of knee [id number] [facility] [place] Carpal tunnel release [id number] [facility] [place] Appendectomy [id number] [facility] Arthroscopy of knee [id number] [facility] [place]pal tunnel release [id number] [facility] Esophagogastroduodenoscopy [id number] [facility] Appendectomy [id number] [facility] [place] Arthroscopy of knee [id number] [facility] [place] Carpal tunnel release [id number] [facility] [place] Esophagogastroduodenoscopy [id number] [facility] [place] Appendectomy [id number] [facility] [place] Esophagogastroduodenoscopy [id number] [facility] [place] Appendectomy [id number] [facility] Arthroscopy of knee [id number] [facility] Carpal tunnel release [id number] [facility] Esophagogastroduodenoscopy [id number] [facility] Appendectomy [id number] [facility] [place] Arthroscopy of knee [id number] [facility] Carpal tunnel release [id number] [facility] [place] Esophagogastroduodenoscopy [id number] [facility] [place]
--- OUTSIDE RECORDS SUMMARY | 2018-07-20 03:55 | XMS REPORT | Summary of Care ---
Author Author [facility] Organization [facility] Address Unknown Phone Unavailable Encounter HQ Adal(FIN) [id number] Date(s): 12/21/17 - 12/21/17 [facility] [address] [place] [address]- [phone] Attending Physician: Chel Rudd MD Referring Physician: Chel Rudd MD Vital Signs No data available for this section Problem List Condition Effective Dates Status Health Status Informant Acute cystitis1, 2 07/26/13 Resolved Allergic rhinitis3 03/03/13 Active Anxiety Active depression(Confirmed ) Benign hypertension4 11/01/12 Active Bronchitis5 10/01/14 Active Carpal tunnel 01/25/13 Active syndrome6 Chronic pain 01/25/13 Active syndrome7 Right knee Active DJD(Confirmed)8 Depressive disorder9 05/19/13 Active Dysfunction of 03/28/14 Active eustachian tube10 Hgozbgs00 03/28/14 Active Edema of lower 11/01/12 Active nzrocolag29 Rjoolhx44 07/13/13 Active Foot pain14 05/19/13 Active Gastric Resolved ulcer(Confirmed) Gastritis(Confirmed) Active Gastroparesis 08/02/13 Active nhjvkoso42 Gastroparesis(Confir Resolved med) Nvrfrvyln24 10/01/14 Active H/O: Active migraine(Confirmed) Hiatal ihqwlw98 08/02/13 Active Dtvsetcxxyddgv54 10/30/13 Active Impaired glucose 07/14/13 Active rivymlhdj13 Low back pain20 10/01/14 Active Lumbar uhwipwoatnd77 01/25/13 Active Chronic bipolar Active disorder(Confirmed) Meralgia 10/30/13 Active yoenmrfueenn70 Kvlpensq88 12/07/12 Active Neck pain24 05/19/13 Active Ekacvbx64 11/01/12 Active Recurrent 03/28/14 Active nijykmzoz16 Recurrent urinary 12/01/13 Active tract swtlyutia57 Restless legs28 11/01/12 Active Restless legs Active syndrome(Confirmed) Retention of urine29 08/29/13 Active Serum TSH level 07/14/13 Active Tear of meniscus of 01/25/13 Active knee31 Urinary tract 10/30/13 Resolved infectious eukoifn87, 33 Viral 03/03/13 Resolved yxtvnwpoytcwobz96 Vitamin D 07/14/13 Active qpgxbvbeqp97 1Data migrated from [employer] on 10/26/14. 2Data migrated from [employer] on 10/26/14. 3Data migrated from [employer] on 09/08/14. 4Data migrated from [employer] on 09/08/14. 5Data migrated from [employer] on 10/17/14. 6Data migrated from [employer] on 09/08/14. 7Data migrated from [employer] on 09/08/14. 8right knee 9Data migrated from [employer] on 09/08/14. 10Data migrated from [employer] on 09/08/14. 11Data migrated from [employer] on 09/08/14. 12Data migrated from [employer] on 09/08/14. 13Data migrated from [employer] on 09/08/14. 14Data migrated from [employer] on 09/08/14. 15Data migrated from [employer] on 09/08/14. 16Data migrated from [employer] on 10/17/14. 17Data migrated from [employer] on 09/08/14. 18Data migrated from [employer] on 09/08/14. 19Data migrated from [employer] on 09/08/14. 20Data migrated from [employer] on 10/17/14. 21Data migrated from [employer] on 09/08/14. 22Data migrated from [employer] on 09/08/14. 23Data migrated from [employer] on 09/08/14. 24Data migrated from [employer] on 09/08/14. 25Data migrated from [employer] on 09/08/14. 26Data migrated from [employer] on 09/08/14. 27Data migrated from [employer] on 09/08/14. 28Data migrated from [employer] on 09/08/14. 29Data migrated from [employer] on 09/08/14. 30Data migrated from [employer] on 09/08/14. 31Data migrated from [employer] on 09/08/14. 32Data migrated from [employer] on 10/26/14. 33Data migrated from [employer] on 10/26/14. 34Data migrated from [employer] on 10/26/14. 35Data migrated from [employer] on 09/08/14. Allergies, Adverse Reactions, Alerts Substance Reaction Severity Status sulfa drugs Active Medications No data available for this section Results No data available for this section Immunizations Given and Recorded Vaccine Date Status Refusal Reason diphtheria/pertussis/tetanus tox 12/30/16 Recorded influenza virus vaccine, inactivated 12/22/16 Given influenza virus vaccine, inactivated 02/18/16 Given influenza virus vaccine, inactivated 01/02/15 Given pneumococcal 23-valent vaccine 02/12/15 Given Hx influenza vaccine-unspecified1 02/07/14 Given 1Result Comment: fluzone (quadrivalent) no preservative (>3 yrs.) [[id number]]. Migrated from OBS ; Data migrated from [employer] on 05/14/2015. Procedures Procedure Date Related Diagnosis Body Site Status Colonoscopy1 04/12/17 Completed Mammogram2 04/12/14 Completed Appendectomy Completed Arthroscopy of knee Completed Carpal tunnel release Completed Esophagogastroduodenoscopy Completed 1normal 2normal Social History Social History Type Response Alcohol Never Smoking Status Never smoker; Previous treatment: None; Exposure to Tobacco Smoke None; Cigarette Smoking Last 365 Days No; Reg Smoking Cessation Counseling No entered on: 06/13/18 Assessment and Plan No data available for this section
--- OUTSIDE RECORDS SUMMARY | 2018-07-20 03:55 | XMS REPORT | Summary of Care ---
Author Author [facility] Organization [facility] Address Unknown Phone Unavailable Encounter CORNEL Lucas_pasquale(FIN) [id number] Date(s): 03/18/17 - 03/19/17 [facility] [address] [place] [phone] Vital Signs No data available for this section Problem List Condition Effective Dates Status Health Status Informant Acute cystitis1, 2 07/26/13 Resolved Allergic rhinitis3 03/03/13 Active Anxiety Active depression(Confirmed ) Benign hypertension4 11/01/12 Active Bronchitis5 10/01/14 Active Carpal tunnel 01/25/13 Active syndrome6 Chronic pain 01/25/13 Active syndrome7 Right knee Active DJD(Confirmed)8 Depressive disorder9 05/19/13 Active Dysfunction of 03/28/14 Active eustachian tube10 Edbalvb68 03/28/14 Active Edema of lower 11/01/12 Active squnaqece02 Iuktxlp09 07/13/13 Active Foot pain14 05/19/13 Active Gastric Resolved ulcer(Confirmed) Gastritis(Confirmed) Active Gastroparesis 08/02/13 Active avasxzuo36 Gastroparesis(Confir Resolved med) Pqwrxohmz77 10/01/14 Active H/O: Active migraine(Confirmed) Hiatal 08/02/13 Active Btdlswyxoxjpgw73 10/30/13 Active Impaired glucose 07/14/13 Active fqsdigtmb79 Low back pain20 10/01/14 Active Lumbar 01/25/13 Active Chronic bipolar Active disorder(Confirmed) Meralgia 10/30/13 Active rogqpgaijmyu87 Rnrmxzep07 12/07/12 Active Neck pain24 05/19/13 Active Vvbqjym40 11/01/12 Active Recurrent 03/28/14 Active Recurrent urinary 12/01/13 Active tract tjvqtnaaz52 Restless legs28 11/01/12 Active Restless legs Active syndrome(Confirmed) Retention of urine29 08/29/13 Active Serum TSH level 07/14/13 Active uynwsxoq21 Tear of meniscus of 01/25/13 Active knee31 Urinary tract 10/30/13 Resolved infectious idrkqao06, 33 Viral 03/03/13 Resolved zapsdcviazivwwc24 Vitamin D 07/14/13 Active ktyklmmxjg15 1Data migrated from [employer] on 10/26/14. [...] Adverse Reactions, Alerts Substance Reaction Severity Status NKDA Active Medications Cipro 500 mg oral tablet 500 mg=1 tab, PO, Q12H, X 5 day, # 10 tab, 0 Refill(s), Pharmacy: [id number] Start Date: 03/18/17 Stop Date: 03/23/17 Status: Ordered Results No data available for this section Immunizations Given and Recorded Vaccine Date Status Refusal Reason diphtheria/pertussis/tetanus tox 12/30/16 Recorded influenza virus vaccine, inactivated 12/22/16 Given influenza virus vaccine, inactivated 02/18/16 Given influenza virus vaccine, inactivated 01/02/15 Given pneumococcal 23-valent vaccine 02/12/15 Given Hx influenza vaccine-unspecified1 02/07/14 Given 1Result Comment: fluzone (quadrivalent) no preservative (>3 yrs.) [[id number]]. Migrated from OBS ; Data migrated from [employer] on 05/14/2015. Procedures Procedure Date Related Diagnosis Body Site Appendectomy Arthroscopy of knee Carpal tunnel release Esophagogastroduodenoscopy Social History Social History Type Response Alcohol Never, Previous treatment: None. Smoking Status Never smoker; Previous treatment: None; Exposure to Tobacco Smoke None; Cigarette Smoking Last 365 Days No; Reg Smoking Cessation Counseling No Assessment and Plan No data available for this section
--- OUTSIDE RECORDS SUMMARY | 2018-07-20 03:55 | XMS REPORT | Summary of Care ---
Author Author [facility] Address Unknown Phone Unavailable Encounter HQ Adal([place]OR[place]) [id number] Date(s): 12/16/16 - 01/14/17 [facility] Discharge Disposition: Home or Self Care Attending Physician: Otilio Moseley MD Vital Signs No data available for this section Problem List Condition Effective Dates Status Health Status Informant Acute cystitis1, 2 07/26/13 Resolved Allergic rhinitis3 03/03/13 Active Anxiety Active depression(Confirmed ) Benign hypertension4 11/01/12 Active Bronchitis5 10/01/14 Active Carpal tunnel 01/25/13 Active syndrome6 Chronic pain 01/25/13 Active syndrome7 Right knee Active DJD(Confirmed)8 Depressive disorder9 05/19/13 Active Dysfunction of 03/28/14 Active eustachian tube10 Ooejpom97 03/28/14 Active Edema of lower 11/01/12 Active qiftibuid94 Sslwhcd68 07/13/13 Active Foot pain14 05/19/13 Active Gastric Resolved ulcer(Confirmed) Gastritis(Confirmed) Active Gastroparesis 08/02/13 Active ytoevvaz75 Gastroparesis(Confir Resolved med) Opzmxyzwq83 10/01/14 Active H/O: Active migraine(Confirmed) Hiatal wfjcac17 08/02/13 Active Xhzwijbobwvqvs58 10/30/13 Active Impaired glucose 07/14/13 Active drtunfivr16 Low back pain20 10/01/14 Active Lumbar olyhufprjhp11 01/25/13 Active Chronic bipolar Active disorder(Confirmed) Meralgia 10/30/13 Active vbabxmoekgkg33 Vaihxkkh83 12/07/12 Active Neck pain24 05/19/13 Active Ssauyub13 11/01/12 Active Recurrent 03/28/14 Active dprkxeijh61 Recurrent urinary 12/01/13 Active tract hhruzlveq72 Restless legs28 11/01/12 Active Restless legs Active syndrome(Confirmed) Retention of urine29 08/29/13 Active Serum TSH level 07/14/13 Active ftireuru94 Tear of meniscus of 01/25/13 Active knee31 Urinary tract 10/30/13 Resolved infectious clsqmoq13, 33 Viral 03/03/13 Resolved svtjxaoapmwmsok00 Vitamin D 07/14/13 Active anpquspzpv05 1Data migrated from [employer] on 10/26/14. [...] Substance Reaction Severity Status NKDA Active Medications No data available for this section Results No data available for this section Immunizations Given and Recorded Vaccine Date Status Refusal Reason diphtheria/pertussis/tetanus tox 12/30/16 Recorded Hx influenza vaccine-unspecified1 02/07/14 Given influenza virus vaccine, inactivated 12/22/16 Given influenza virus vaccine, inactivated 02/18/16 Given influenza virus vaccine, inactivated 01/02/15 Given pneumococcal 23-valent vaccine 02/12/15 Given 1Result Comment: fluzone (quadrivalent) no preservative (>3 yrs.) [[id number]]. Migrated from OBS ; Data migrated from [...]
--- OUTSIDE RECORDS SUMMARY | 2018-07-20 03:55 | XMS REPORT | Summary of Care ---
Author Author [facility] Address Unknown Phone Unavailable Encounter HQ Karlantr_pasquale(FIN) [id number] Date(s): 07/23/17 - 07/24/17 [facility] [address] [place] [address]- [phone] Vital Signs No data available for this section Problem List Condition Effective Dates Status Health Status Informant Acute cystitis1, 2 07/26/13 Resolved Allergic rhinitis3 03/03/13 Active Anxiety Active depression(Confirmed ) Benign hypertension4 11/01/12 Active Bronchitis5 10/01/14 Active Carpal tunnel 01/25/13 Active syndrome6 Chronic pain 01/25/13 Active syndrome7 Right knee Active DJD(Confirmed)8 Depressive disorder9 05/19/13 Active Dysfunction of 03/28/14 Active eustachian tube10 Ylnbfpp26 03/28/14 Active Edema of lower 11/01/12 Active Qrivbcj42 07/13/13 Active Foot pain14 05/19/13 Active Gastric Resolved ulcer(Confirmed) Gastritis(Confirmed) Active Gastroparesis 08/02/13 Active mokosaif31 Gastroparesis(Confir Resolved med) Csyrstfal36 10/01/14 Active H/O: Active migraine(Confirmed) Hiatal zehqym26 08/02/13 Active Wbztgrfmacqepa64 10/30/13 Active Impaired glucose 07/14/13 Active lfplapgrq16 Low back pain20 10/01/14 Active Lumbar shzshitiwha74 01/25/13 Active Chronic bipolar Active disorder(Confirmed) Meralgia 10/30/13 Active raovhbynosnt04 Nzxwhvgz73 12/07/12 Active Neck pain24 05/19/13 Active Gaicvqi91 11/01/12 Active Recurrent 03/28/14 Active djuyoseiz98 Recurrent urinary 12/01/13 Active tract ynsxapeic30 Restless legs28 11/01/12 Active Restless legs Active syndrome(Confirmed) Retention of urine29 08/29/13 Active Serum TSH level 07/14/13 Active yrnqxxzj05 Tear of meniscus of 01/25/13 Active knee31 Urinary tract 10/30/13 Resolved infectious iravfbi79, 33 Viral 03/03/13 Resolved vpdiloxkkmosahd35 Vitamin D 07/14/13 Active kezzsgtcsl88 1Data migrated from [employer] on 10/26/14. [...] Substance Reaction Severity Status NKDA Active Medications Keflex 500 mg oral capsule 500 mg=1 cap, PO, BID, X 7 day, # 14 cap, 0 Refill(s), Pharmacy: [id number] Start Date: 07/23/17 Stop Date: 07/30/17 Status: Ordered Results No data available for this section Immunizations Given and Recorded Vaccine Date Status Refusal Reason diphtheria/pertussis/tetanus tox 12/30/16 Recorded influenza virus vaccine, inactivated 12/22/16 Given influenza virus vaccine, inactivated 02/18/16 Given influenza virus vaccine, inactivated 01/02/15 Given pneumococcal 23-valent vaccine 02/12/15 Given Hx influenza vaccine-unspecified1 02/07/14 Given 1Result Comment: fluzone (quadrivalent) no preservative (>3 yrs.) [[id number]]. Migrated from OBS ; Data migrated from [...] Reg Smoking Cessation Counseling No entered on: 07/01/17 Assessment and Plan No data available for this section
--- OUTSIDE RECORDS SUMMARY | 2018-07-20 03:55 | XMS REPORT | Summary of Care ---
Author Author [facility] Address Unknown Phone Unavailable Encounter CORNEL Galeas([place]OR[place]) [id number] Date(s): 10/07/16 - 11/05/16 [facility] Discharge Disposition: Home or Self Care Attending [...] Active Dysfunction of 03/28/14 Active eustachian tube10 Krinubq50 03/28/14 Active Edema of lower 11/01/12 Active ootpvhjxr87 Eopbvkp55 07/13/13 Active Foot pain14 05/19/13 Active Gastric Resolved ulcer(Confirmed) Gastritis(Confirmed) Active Gastroparesis 08/02/13 Active yfccehpj80 Gastroparesis(Confir Resolved med) Xjqvbelgo91 10/01/14 Active H/O: Active migraine(Confirmed) Hiatal vroqon46 08/02/13 Active Btipltfrdlbqwr80 10/30/13 Active Impaired glucose 07/14/13 Active aorariqha30 Low back pain20 10/01/14 Active Lumbar ctyvxgzuwjt28 01/25/13 Active Chronic bipolar Active disorder(Confirmed) Meralgia 10/30/13 Active ytluwnrnkwbz95 Jqvvtvzf24 12/07/12 Active Neck pain24 05/19/13 Active Cekonqr99 11/01/12 Active Recurrent 03/28/14 Active yfvocwhjz51 Recurrent urinary 12/01/13 Active tract tkrodmezl40 Restless legs28 11/01/12 Active Restless legs Active syndrome(Confirmed) Retention of urine29 08/29/13 Active Serum TSH level 07/14/13 Active itdlmozn32 Tear of meniscus of 01/25/13 Active knee31 Urinary tract 10/30/13 Resolved infectious , 33 Viral 03/03/13 Resolved kcjhmjltugwzsav25 Vitamin D 07/14/13 Active afejgnhjvp33 1Data migrated from [employer] on 10/26/14. [...] and Recorded Vaccine Date Status Refusal Reason Hx influenza vaccine-unspecified1 02/07/14 Given influenza virus vaccine, inactivated 02/18/16 Given influenza virus vaccine, inactivated 01/02/15 Given pneumococcal 23-valent vaccine 02/12/15 Given 1Result Comment: fluzone (quadrivalent) no preservative (>3 yrs.) [[id number]]. Migrated from OBS ; Data migrated from [...]
--- OUTSIDE RECORDS SUMMARY | 2018-07-20 03:55 | XMS REPORT | Summary of Care ---
Author Author [facility] Address Unknown Phone Unavailable Encounter HQ Adal(FIN) [id number] Date(s): 04/22/17 - 04/22/17 [facility] [address] [place] [phone] Encounter Diagnosis Pain due to internal orthopedic prosthetic devices, implants and grafts, initial encounter (Final) - 04/29/17 Discharge Disposition: Home or Self Care Attending Physician: Darwin Red MD Vital Signs No data available for this section Problem List Condition Effective Dates Status Health Status Informant Acute cystitis1, 2 07/26/13 Resolved Allergic rhinitis3 03/03/13 Active Anxiety Active depression(Confirmed ) Benign hypertension4 11/01/12 Active Bronchitis5 10/01/14 Active Carpal tunnel 01/25/13 Active syndrome6 Chronic pain 01/25/13 Active syndrome7 Right knee Active DJD(Confirmed)8 Depressive disorder9 05/19/13 Active Dysfunction of 03/28/14 Active eustachian tube10 Nuvtoax48 03/28/14 Active Edema of lower 11/01/12 Active bqprzuowr34 Wiyyfvn55 07/13/13 Active Foot pain14 05/19/13 Active Gastric Resolved ulcer(Confirmed) Gastritis(Confirmed) Active Gastroparesis 08/02/13 Active Gastroparesis(Confir Resolved med) Imbbqvzdo46 10/01/14 Active H/O: Active migraine(Confirmed) Hiatal 08/02/13 Active Zodriasaptidvy51 10/30/13 Active Impaired glucose 07/14/13 Active hspvgfthe72 Low back pain20 10/01/14 Active Lumbar furrhfbpvqa52 01/25/13 Active Chronic bipolar Active disorder(Confirmed) Meralgia 10/30/13 Active odqtlcixdlxh65 Rbbnrhna65 12/07/12 Active Neck pain24 05/19/13 Active Xacxoqz89 11/01/12 Active Recurrent 03/28/14 Active bvapwkgob82 Recurrent urinary 12/01/13 Active tract evftzpsgg52 Restless legs28 11/01/12 Active Restless legs Active syndrome(Confirmed) Retention of urine29 08/29/13 Active Serum TSH level 07/14/13 Active dnqewwfp74 Tear of meniscus of 01/25/13 Active knee31 Urinary tract 10/30/13 Resolved infectious zxcliln77, 33 Viral 03/03/13 Resolved zusacgdsbeouvcm01 Vitamin D 07/14/13 Active qrqilzonxe45 1Data migrated from [employer] on 10/26/14. [...] Comment: fluzone (quadrivalent) no preservative (>3 yrs.) [[id number]]. Migrated from OBS ; Data migrated from [employer] on 05/14/2015. Procedures Procedure Date Related Diagnosis Body Site Status Arthrocentesis, aspiration and/or injection, 04/22/17 Completed major joint or bursa (eg, shoulder, hip, knee, subacromial bursa); with ultrasound guidance, with permanent recording and reporting Colonoscopy1 04/12/17 Completed Mammogram2 04/12/14 Completed Appendectomy [...]
--- OUTSIDE RECORDS SUMMARY | 2018-07-20 03:55 | XMS REPORT | Summary of Care ---
Author Author [facility] Address Unknown Phone Unavailable Encounter HQ Adal([place]OR[place]) [id number] Date(s): 08/04/16 - 09/02/16 [facility] Discharge Disposition: Home or Self Care Attending [...] Active Dysfunction of 03/28/14 Active eustachian tube10 Ckiayle72 03/28/14 Active Edema of lower 11/01/12 Active Tsyuqay19 07/13/13 Active Foot pain14 05/19/13 Active Gastric Resolved ulcer(Confirmed) Gastritis(Confirmed) Active Gastroparesis 08/02/13 Active Gastroparesis(Confir Resolved med) Tlbwofcuz15 10/01/14 Active H/O: Active migraine(Confirmed) Hiatal zanqvm25 08/02/13 Active Rtintazlfoshwv13 10/30/13 Active Impaired glucose 07/14/13 Active lywmzrrjn24 Low back pain20 10/01/14 Active Lumbar fatifilcjvo56 01/25/13 Active Chronic bipolar Active disorder(Confirmed) Meralgia 10/30/13 Active Bnhnxlmi81 12/07/12 Active Neck pain24 05/19/13 Active Dposamg72 11/01/12 Active Recurrent 03/28/14 Active cmytrntko17 Recurrent urinary 12/01/13 Active tract hffbiatxz23 Restless legs28 11/01/12 Active Restless legs Active syndrome(Confirmed) Retention of urine29 08/29/13 Active Serum TSH level 07/14/13 Active dkeqgabw92 Tear of meniscus of 01/25/13 Active knee31 Urinary tract 10/30/13 Resolved infectious fuauczp05, 33 Viral 03/03/13 Resolved ituacpvcapiarer34 Vitamin D 07/14/13 Active upbyxnpxij70 1Data migrated from [employer] on 10/26/14. [...] Comment: fluzone (quadrivalent) no preservative (>3 yrs.) [[id number]]. Migrated from OBS ; Data migrated from [...]
--- OUTSIDE RECORDS SUMMARY | 2018-07-20 03:55 | XMS REPORT | Summary of Care ---
Author Author [facility] Organization [facility] Address Unknown Phone Unavailable Encounter HQ Adal([place]) [id number] Date(s): 02/23/17 - 02/23/17 [facility] [address] [place] [address] Discharge Disposition: Home or Self Care Attending Physician: Rosendo Marie MD Referring Physician: Rosendo Marie MD Vital Signs No data available for this section Problem List Condition Effective Dates Status Health Status Informant Acute cystitis1, 2 07/26/13 Resolved Allergic rhinitis3 03/03/13 Active Anxiety Active depression(Confirmed ) Benign hypertension4 11/01/12 Active Bronchitis5 10/01/14 Active Carpal tunnel 01/25/13 Active syndrome6 Chronic pain 01/25/13 Active syndrome7 Right knee Active DJD(Confirmed)8 Depressive disorder9 05/19/13 Active Dysfunction of 03/28/14 Active eustachian tube10 Wsvqggk23 03/28/14 Active Edema of lower 11/01/12 Active cjeeffcgq39 Edzmlmi58 07/13/13 Active Foot pain14 05/19/13 Active Gastric Resolved ulcer(Confirmed) Gastritis(Confirmed) Active Gastroparesis 08/02/13 Active xxkrobvm58 Gastroparesis(Confir Resolved med) Issknwldr81 10/01/14 Active H/O: Active migraine(Confirmed) Hiatal uafgcf75 08/02/13 Active Lpimauhshssciq94 10/30/13 Active Impaired glucose 07/14/13 Active fupbmbial68 Low back pain20 10/01/14 Active Lumbar bsywhhumzql57 01/25/13 Active Chronic bipolar Active disorder(Confirmed) Meralgia 10/30/13 Active pgvkwosoivck38 Mlrakypl64 12/07/12 Active Neck pain24 05/19/13 Active Xghgupt64 7/23/13 Active Recurrent 03/28/14 Active egznfixdj87 Recurrent urinary 12/01/13 Active tract drvyoogya43 Restless legs28 11/01/12 Active Restless legs Active syndrome(Confirmed) Retention of urine29 08/29/13 Active Serum TSH level 07/14/13 Active heeyethn97 Tear of meniscus of 01/25/13 Active knee31 Urinary tract 10/30/13 Resolved infectious osuolvs75, 33 Viral 03/03/13 Resolved twbfgqtsjxuxloq31 Vitamin D 07/14/13 Active hmprctztyt97 1Data migrated from [employer] on 10/26/14. [...] Comment: fluzone (quadrivalent) no preservative (>3 yrs.) [[id number]]. Migrated from OBS ; Data migrated from [...]
--- OUTSIDE RECORDS SUMMARY | 2018-07-20 03:55 | XMS REPORT | Summary of Care ---
Author Author [facility] Address Unknown Phone Unavailable Encounter CORNEL Galeas([place]OR[place]) [id number] Date(s): 11/06/16 - 12/05/16 [facility] Discharge Disposition: Home or Self Care Attending [...] Active Dysfunction of 03/28/14 Active eustachian tube10 Qebougu60 03/28/14 Active Edema of lower 11/01/12 Active viuhwansh04 Qggxivl42 07/13/13 Active Foot pain14 05/19/13 Active Gastric Resolved ulcer(Confirmed) Gastritis(Confirmed) Active Gastroparesis 08/02/13 Active ecwcscbv70 Gastroparesis(Confir Resolved med) Vqdyqeeom11 10/01/14 Active H/O: Active migraine(Confirmed) Hiatal vdxbyc64 08/02/13 Active Qditpexdegqomu52 10/30/13 Active Impaired glucose 07/14/13 Active znqzduins25 Low back pain20 10/01/14 Active Lumbar jefgnldxyeq39 01/25/13 Active Chronic bipolar Active disorder(Confirmed) Meralgia 10/30/13 Active pdfcjqeswzdk96 Vnhtavei58 12/07/12 Active Neck pain24 05/19/13 Active Lljdtdp74 11/01/12 Active Recurrent 03/28/14 Active mvifvaohx54 Recurrent urinary 12/01/13 Active tract muvecfnhf59 Restless legs28 11/01/12 Active Restless legs Active syndrome(Confirmed) Retention of urine29 08/29/13 Active Serum TSH level 07/14/13 Active yzvbjshe93 Tear of meniscus of 01/25/13 Active knee31 Urinary tract 10/30/13 Resolved infectious kgxeyfg43, 33 Viral 03/03/13 Resolved wipnuuaekjuulwy36 Vitamin D 07/14/13 Active vfeqoybyru75 1Data migrated from [employer] on 10/26/14. [...] Comment: fluzone (quadrivalent) no preservative (>3 yrs.) [[id number]]. Migrated from OBS ; Data migrated from [...]
--- OUTSIDE RECORDS SUMMARY | 2018-07-20 03:55 | XMS REPORT | Summary of Care ---
Author Author [facility] Organization [facility] Address Unknown Phone Unavailable Encounter CORNEL Galeas(FIN) [id number] Date(s): 03/10/17 - 03/10/17 [facility] [address] [place] [address] [phone] Discharge Disposition: Home or Self Care Attending Physician: Bárbara Ledesma MD Referring Physician: Nannette Amaro MD Vital Signs No data available for this section Problem List Condition Effective Dates Status Health Status Informant Acute cystitis1, 2 07/26/13 Resolved Allergic rhinitis3 03/03/13 Active Anxiety Active depression(Confirmed ) Benign hypertension4 11/01/12 Active Bronchitis5 10/01/14 Active Carpal tunnel 01/25/13 Active syndrome6 Chronic pain 01/25/13 Active syndrome7 Right knee Active DJD(Confirmed)8 Depressive disorder9 05/19/13 Active Dysfunction of 03/28/14 Active eustachian tube10 Gkhtfxp85 03/28/14 Active Edema of lower 11/01/12 Active fpybihyls68 Sushwvj06 07/13/13 Active Foot pain14 05/19/13 Active Gastric Resolved ulcer(Confirmed) Gastritis(Confirmed) Active Gastroparesis 08/02/13 Active zifqvpbl29 Gastroparesis(Confir Resolved med) Wycuwjqaf99 10/01/14 Active H/O: Active migraine(Confirmed) Hiatal gtluia81 08/02/13 Active Zwghbqyhntxkob18 10/30/13 Active Impaired glucose 07/14/13 Active hiphpdbsg96 Low back pain20 10/01/14 Active Lumbar gvrxunpqawk16 01/25/13 Active Chronic bipolar Active disorder(Confirmed) Meralgia 10/30/13 Active mmlpspejyonv18 Fggrdopa14 12/07/12 Active Neck pain24 05/19/13 Active Udiqwaj02 11/01/12 Active Recurrent 03/28/14 Active qjzetlbnn40 Recurrent urinary 12/01/13 Active tract riiqoqhds65 Restless legs28 11/01/12 Active Restless legs Active syndrome(Confirmed) Retention of urine29 08/29/13 Active Serum TSH level 07/14/13 Active wtmuocmw01 Tear of meniscus of 01/25/13 Active knee31 Urinary tract 10/30/13 Resolved infectious atlqtgw33, 33 Viral 03/03/13 Resolved wmbkildomzmoojy06 Vitamin D 07/14/13 Active dgbqzzyumx11 1Data migrated from [employer] on 10/26/14. [...] Substance Reaction Severity Status NKDA Active Medications ketOROLAC 30 mg, Route: IM, ONCE, Dosing Weight 93.182, kg, Start date: 03/10/17 17:15:00 [employer], Stop date: 03/10/17 17:15:00 MANUAL W[employer]ER Start Date: 03/10/17 Stop Date: 03/10/17 Status: Ordered Results No data available for this section Immunizations Given and Recorded Vaccine Date Status Refusal Reason diphtheria/pertussis/tetanus tox 12/30/16 Recorded influenza virus vaccine, inactivated 12/22/16 Given influenza virus vaccine, inactivated 02/18/16 Given influenza virus vaccine, inactivated 01/02/15 Given pneumococcal 23-valent vaccine 02/12/15 Given Hx influenza vaccine-unspecified1 02/07/14 Given 1Result Comment: fluzone (quadrivalent) no preservative (>3 yrs.) [[id number]]. Migrated from OBS ; Data migrated from [...]
--- OUTSIDE RECORDS SUMMARY | 2018-07-20 03:55 | XMS REPORT | Summary of Care ---
Author Author [facility] Organization [facility] Address Unknown Phone Unavailable Encounter CORNEL Galeas(FIN) [id number] Date(s): 06/01/17 - 06/01/17 [facility] [address] [place] [address]- [phone] Discharge Disposition: Home or Self Care Attending Physician: Bárbara Ledesma MD Referring Physician: Nannette Amaro MD Vital Signs Most recent to 1 oldest [Reference Range]: Height 157.48 cm (06/01/17 2:04 PM) Temperature Oral 98.0 DegF [96.4-99.1 DegF] (06/01/17 2:04 PM) Blood Pressure 100/68 mmHg [90-140/60-90 mmHg] (06/01/17 2:04 PM) Peripheral Pulse 72 bpm Rate [60-100 bpm] (06/01/17 2:04 PM) Weight 98.636 kg (06/01/17 2:04 PM) Body Mass Index 39.77 m2 (06/01/17 2:04 PM) Problem List Condition Effective Dates Status Health Status Informant Acute cystitis1, 2 07/26/13 Resolved Allergic rhinitis3 03/03/13 Active Anxiety Active depression(Confirmed ) Benign hypertension4 11/01/12 Active Bronchitis5 10/01/14 Active Carpal tunnel 01/25/13 Active syndrome6 Chronic pain 01/25/13 Active syndrome7 Right knee Active DJD(Confirmed)8 Depressive disorder9 05/19/13 Active Dysfunction of 03/28/14 Active eustachian tube10 Qvtrbfn30 03/28/14 Active Edema of lower 11/01/12 Active Bbpqrii90 07/13/13 Active Foot pain14 05/19/13 Active Gastric Resolved ulcer(Confirmed) Gastritis(Confirmed) Active Gastroparesis 08/02/13 Active dgqsfxar28 Gastroparesis(Confir Resolved med) Xfpftxtuc09 10/01/14 Active H/O: Active migraine(Confirmed) Hiatal aimloj73 08/02/13 Active Oqkvlyffifrwbh17 10/30/13 Active Impaired glucose 07/14/13 Active ghsjzwysz35 Low back pain20 10/01/14 Active Lumbar fxxjegfabmc66 01/25/13 Active Chronic bipolar Active disorder(Confirmed) Meralgia 10/30/13 Active ntnwhmbserjl65 Posufbyg41 12/07/12 Active Neck pain24 05/19/13 Active Sllzxxn44 11/01/12 Active Recurrent 03/28/14 Active gqyfkylsv70 Recurrent urinary 12/01/13 Active tract jxohfcbsg20 Restless legs28 11/01/12 Active Restless legs Active syndrome(Confirmed) Retention of urine29 08/29/13 Active Serum TSH level 07/14/13 Active nbpvqapy07 Tear of meniscus of 01/25/13 Active knee31 Urinary tract 10/30/13 Resolved infectious kwqizom88, 33 Viral 03/03/13 Resolved dcnudqwbiztbwba78 Vitamin D 07/14/13 Active ehqrtalmtu82 1Data migrated from [employer] on 10/26/14. [...] tablet 500 mg=1 tab, PO, Q12H, X 7 day, # 14 tab, 0 Refill(s), Pharmacy: [facility] [id number] Start Date: 06/01/17 Stop Date: 06/08/17 Status: Completed tramadol 50 mg oral tablet 50 mg=1 tab, PO, BID, X 7 day, # 14 tab, 0 Refill(s) Start Date: 06/01/17 Stop Date: 06/08/17 Status: Completed Results No data available for this section Immunizations Given and Recorded Vaccine Date Status Refusal Reason diphtheria/pertussis/tetanus tox 12/30/16 Recorded influenza virus vaccine, inactivated 12/22/16 Given influenza virus vaccine, inactivated 02/18/16 Given influenza virus vaccine, inactivated 01/02/15 Given pneumococcal 23-valent vaccine 02/12/15 Given Hx influenza vaccine-unspecified1 02/07/14 Given 1Result Comment: fluzone (quadrivalent) no preservative (>3 yrs.) [[id number]]. Migrated from OBS ; Data migrated from [employer] on 05/14/2015. Procedures Procedure Date Related Diagnosis [...] Reg Smoking Cessation Counseling No entered on: 08/10/17 Assessment and Plan No data available for this section
--- OUTSIDE RECORDS SUMMARY | 2018-07-20 03:56 | XMS REPORT | Summary of Care ---
Author Author [facility] Organization [facility] Address Unknown Phone Unavailable Encounter HQ Adal(FIN) [id number] Date(s): 12/21/17 - 12/21/17 [facility] [address] [place] [address]- Attending Physician: Chel Rudd MD Referring Physician: [...] Active Dysfunction of 03/28/14 Active eustachian tube10 Baouqgk86 03/28/14 Active Edema of lower 11/01/12 Active gayxpirpt76 Gsoekkd83 07/13/13 Active Foot pain14 05/19/13 Active Gastric Resolved ulcer(Confirmed) Gastritis(Confirmed) Active Gastroparesis 08/02/13 Active uvtkimsk26 Gastroparesis(Confir Resolved med) Cghsgfmcp62 10/01/14 Active H/O: Active migraine(Confirmed) Hiatal snuhxf89 08/02/13 Active Jqcrusoxptyfga72 10/30/13 Active Impaired glucose 07/14/13 Active bjlmwetwh34 Low back pain20 10/01/14 Active Lumbar cliwyxbpqvp83 01/25/13 Active Chronic bipolar Active disorder(Confirmed) Meralgia 10/30/13 Active sdqeyaxmejqa47 Vbkkqzgf34 12/07/12 Active Neck pain24 05/19/13 Active Ucihgbe15 11/01/12 Active Recurrent 03/28/14 Active Recurrent urinary 12/01/13 Active tract cxpputdzk34 Restless legs28 11/01/12 Active Restless legs Active syndrome(Confirmed) Retention of urine29 08/29/13 Active Serum TSH level 07/14/13 Active ylizyvuw40 Tear of meniscus of 01/25/13 Active knee31 Urinary tract 10/30/13 Resolved infectious nzdkpsi14, 33 Viral 03/03/13 Resolved uzaeboyttgcclcm36 Vitamin D 07/14/13 Active nvoiveqqaj47 1Data migrated from [employer] on 10/26/14. [...] Comment: fluzone (quadrivalent) no preservative (>3 yrs.) [[id number]]. Migrated from OBS ; Data migrated from [...] Reg Smoking Cessation Counseling No entered on: 03/30/18 Assessment and Plan No data available for this section
--- OUTSIDE RECORDS SUMMARY | 2018-07-20 03:56 | XMS REPORT | Summary of Care ---
Author Author [facility] Address Unknown Phone Unavailable Encounter HQ Adal(FIN) [id number] Date(s): 07/01/17 - 07/01/17 [facility] [address] [place] [phone] Discharge Disposition: Home or Self Care Attending Physician: Bárbara Ledesma MD Referring Physician: Nannette Amaro MD Vital Signs Most recent to 1 oldest [Reference Range]: Height 157.48 cm (07/01/17 11:48 AM) Temperature Oral 98.3 DegF [96.4-99.1 DegF] (07/01/17 11:48 AM) Blood Pressure 151/103 mmHg [90-140/60-90 mmHg] *HI* (07/01/17 11:48 AM) Peripheral Pulse 76 bpm Rate [60-100 bpm] (07/01/17 11:48 AM) Weight 94.176 kg (07/01/17 11:48 AM) Body Mass Index 37.97 m2 (07/01/17 11:48 AM) Problem List Condition Effective Dates Status Health Status Informant Acute cystitis1, 2 07/26/13 Resolved Allergic rhinitis3 03/03/13 Active Anxiety Active depression(Confirmed ) Benign hypertension4 11/01/12 Active Bronchitis5 10/01/14 Active Carpal tunnel 01/25/13 Active syndrome6 Chronic pain 01/25/13 Active syndrome7 Right knee Active DJD(Confirmed)8 Depressive disorder9 05/19/13 Active Dysfunction of 03/28/14 Active eustachian tube10 Bpiaxhy39 03/28/14 Active Edema of lower 11/01/12 Active ppvilghts92 Lnfetug17 07/13/13 Active Foot pain14 05/19/13 Active Gastric Resolved ulcer(Confirmed) Gastritis(Confirmed) Active Gastroparesis 08/02/13 Active erqcqrui58 Gastroparesis(Confir Resolved med) Himtuehzt18 10/01/14 Active H/O: Active migraine(Confirmed) Hiatal dhjyfr44 08/02/13 Active Ynvmfahombtxdr58 10/30/13 Active Impaired glucose 07/14/13 Active kkzezwkqw17 Low back pain20 10/01/14 Active Lumbar grtvyifazya37 01/25/13 Active Chronic bipolar Active disorder(Confirmed) Meralgia 10/30/13 Active uelenmepupaq61 Bvmukaev17 12/07/12 Active Neck pain24 05/19/13 Active Jhogjzx26 11/01/12 Active Recurrent 03/28/14 Active Recurrent urinary 12/01/13 Active tract Restless legs28 11/01/12 Active Restless legs Active syndrome(Confirmed) Retention of urine29 08/29/13 Active Serum TSH level 07/14/13 Active prlprwci88 Tear of meniscus of 01/25/13 Active knee31 Urinary tract 10/30/13 Resolved infectious , 33 Viral 03/03/13 Resolved ajwcelvfvkzyenp80 Vitamin D 07/14/13 Active lwyycbwrew28 1Data migrated from [employer] on 10/26/14. [...] day, # 14 tab, 0 Refill(s), Pharmacy: [facility] [employer] [facility] [id number] Start Date: 07/01/17 Stop Date: 07/05/17 Status: Discontinued Macrobid 100 mg oral capsule 100 mg=1 cap, PO, BID, X 7 day, # 14 cap, 0 Refill(s), [facility] [id number] Start Date: 07/05/17 Stop Date: 07/12/17 Status: Completed metoclopramide 5 mg oral tablet See Instructions, # 60 tab, Refill(s) 1, TAKE 1 TABLET BY MOUTH EVERY 6 HOURS NEEDED FOR NAUSEA AND VOMITING, Pharmacy: [facility] [employer] [facility] [id number] Start Date: 08/30/17 Status: Ordered ranitidine 150 mg oral tablet See Instructions, # 180 tab, TAKE 1 TABLET BY MOUTH TWICE DAILY, Pharmacy: [facility] [employer] [facility] [id number] Start Date: 08/30/17 Status: Ordered ranitidine 150 mg oral tablet See Instructions, # 180 tab, TAKE 1 TABLET BY MOUTH TWICE DAILY, Pharmacy: [facility] [id number] Start Date: 08/30/17 Status: Ordered Reglan 5 mg oral tablet 5 mg=1 tab, PO, Q6H, PRN nausea and vomiting, # 30 tab, 0 Refill(s), Pharmacy: [facility] [id number] Start Date: 07/01/17 Stop Date: 08/30/17 Status: Completed rOPINIRole 4 mg oral tablet See Instructions, # 270 tab, TAKE 1 TABLET BY MOUTH THREE TIMES DAILY, Pharmacy: [email or web address] [id number] Start Date: 08/30/17 Status: Ordered Results No data available for this section Immunizations Given and Recorded Vaccine Date Status Refusal Reason diphtheria/pertussis/tetanus tox 12/30/16 Recorded influenza virus vaccine, inactivated 12/22/16 Given influenza virus vaccine, inactivated 02/18/16 Given influenza virus vaccine, inactivated 01/02/15 Given pneumococcal 23-valent vaccine 02/12/15 Given Hx influenza vaccine-unspecified1 02/07/14 Given 1Result Comment: fluzone (quadrivalent) no preservative (>3 yrs.) [[id number]]. Migrated from [facility] ; Data migrated from [employer] on 05/14/2015. Procedures Procedure Date Related Diagnosis [...]
--- OUTSIDE RECORDS SUMMARY | 2018-07-20 03:56 | XMS REPORT | Summary of Care ---
Author Author [facility] Organization [facility] Address Unknown Phone Unavailable Encounter HQ Adal(FIN) [id number] Date(s): 08/10/17 - 08/10/17 [facility] [address] [place] [address] [phone] Discharge Disposition: Home or Self Care Attending Physician: Bárbara Ledesma MD Referring Physician: Nannette Amaro MD Vital Signs Most recent to 1 oldest [Reference Range]: Height 157.48 cm (08/10/17 10:36 AM) Temperature Oral 98.6 DegF [96.4-99.1 DegF] (08/10/17 10:36 AM) Blood Pressure 128/88 mmHg [90-140/60-90 mmHg] (08/10/17 10:36 AM) Peripheral Pulse 88 bpm Rate [60-100 bpm] (08/10/17 10:36 AM) Weight 100.909 kg (08/10/17 10:36 AM) Body Mass Index 40.69 m2 (08/10/17 10:36 AM) Problem List Condition Effective Dates Status Health Status Informant Acute cystitis1, 2 07/26/13 Resolved Allergic rhinitis3 03/03/13 Active Anxiety Active depression(Confirmed ) Benign hypertension4 11/01/12 Active Bronchitis5 10/01/14 Active Carpal tunnel 01/25/13 Active syndrome6 Chronic pain 01/25/13 Active syndrome7 Right knee Active DJD(Confirmed)8 Depressive disorder9 05/19/13 Active Dysfunction of 03/28/14 Active eustachian tube10 Iwcebcs84 03/28/14 Active Edema of lower 11/01/12 Active phylidgap71 Skdkaxy06 07/13/13 Active Foot pain14 05/19/13 Active Gastric Resolved ulcer(Confirmed) Gastritis(Confirmed) Active Gastroparesis 4/23/14 Active zixwrlck07 Gastroparesis(Confir Resolved med) Kerganwkw45 10/01/14 Active H/O: Active migraine(Confirmed) Hiatal pqyvec36 08/02/13 Active Tkbssagkebtptx75 10/30/13 Active Impaired glucose 07/14/13 Active Low back pain20 10/01/14 Active Lumbar bzhnpfawweh64 01/25/13 Active Chronic bipolar Active disorder(Confirmed) Meralgia 10/30/13 Active ozonaevsamfu29 Bdumfiua22 12/07/12 Active Neck pain24 05/19/13 Active Ncegosj25 11/01/12 Active Recurrent 03/28/14 Active dajudpkcc40 Recurrent urinary 12/01/13 Active tract cioydidlq25 Restless legs28 11/01/12 Active Restless legs Active syndrome(Confirmed) Retention of urine29 08/29/13 Active Serum TSH level 07/14/13 Active wrnloxsf73 Tear of meniscus of 01/25/13 Active knee31 Urinary tract 10/30/13 Resolved infectious eqmfqec77, 33 Viral 03/03/13 Resolved eiswpjkxnmbejkw43 Vitamin D 07/14/13 Active ebaaaatchz95 1Data migrated from [employer] on 10/26/14. [...] Substance Reaction Severity Status NKDA Active Medications cefTRIAXone 250 mg, Route: IM, ONCE, Dosing Weight 100.909, kg, Start date: 08/10/17 12:05:0 0 CDT, Stop date: 08/10/17 12:05:00 CDT Start Date: 08/10/17 Stop Date: 08/10/17 Status: Completed Keflex 500 mg oral capsule 500 mg=1 cap, PO, TID, X 14 day, # 42 cap, 0 Refill(s), Pharmacy: [facility] [id number] Start Date: 08/11/17 Stop Date: 08/25/17 Status: Ordered Results No data available for this section Immunizations Given and Recorded Vaccine Date Status Refusal Reason diphtheria/pertussis/tetanus tox 12/30/16 Recorded influenza virus vaccine, inactivated 12/22/16 Given influenza virus vaccine, inactivated 02/18/16 Given influenza virus vaccine, inactivated 01/02/15 Given pneumococcal 23-valent vaccine 02/12/15 Given Hx influenza vaccine-unspecified1 02/07/14 Given 1Result Comment: fluzone (quadrivalent) no preservative (>3 yrs.) [[id number]]. Migrated from OBS ; Data migrated from [employer] on 05/14/2015. Procedures Procedure Date Related Diagnosis [...]
--- OUTSIDE RECORDS SUMMARY | 2018-07-20 03:56 | XMS REPORT | Summary of Care ---
Author Author [facility] Organization [facility] Address Unknown Phone Unavailable Encounter HQ Michaelar_pasquale(FIN) [id number] Date(s): 09/01/17 - 09/02/17 [facility] [address] [place] [address] [phone] Vital Signs No data available for this section Problem List Condition Effective Dates Status Health Status Informant Acute cystitis1, 2 07/26/13 Resolved Allergic rhinitis3 03/03/13 Active Anxiety Active depression(Confirmed ) Benign hypertension4 11/01/12 Active Bronchitis5 10/01/14 Active Carpal tunnel 01/25/13 Active syndrome6 Chronic pain 01/25/13 Active syndrome7 Right knee Active DJD(Confirmed)8 Depressive disorder9 05/19/13 Active Dysfunction of 03/28/14 Active eustachian tube10 Hzelwpt86 03/28/14 Active Edema of lower 11/01/12 Active dustmxkeb85 Sicemxv49 07/13/13 Active Foot pain14 05/19/13 Active Gastric Resolved ulcer(Confirmed) Gastritis(Confirmed) Active Gastroparesis 08/02/13 Active tikhgpod74 Gastroparesis(Confir Resolved med) Iemlkmdjc48 10/01/14 Active H/O: Active migraine(Confirmed) Hiatal vkxwne83 08/02/13 Active Kvoijobenrbktw35 10/30/13 Active Impaired glucose 07/14/13 Active asucpqxcf29 Low back pain20 10/01/14 Active Lumbar ciatmdnpdjx96 01/25/13 Active Chronic bipolar Active disorder(Confirmed) Meralgia 10/30/13 Active boubzfewhliz38 Loilloqi34 12/07/12 Active Neck pain24 05/19/13 Active Hgnqjup09 11/01/12 Active Recurrent 03/28/14 Active nipfnrdht42 Recurrent urinary 12/01/13 Active tract klqajvdmh15 Restless legs28 11/01/12 Active Restless legs Active syndrome(Confirmed) Retention of urine29 08/29/13 Active Serum TSH level 07/14/13 Active Tear of meniscus of 01/25/13 Active knee31 Urinary tract 10/30/13 Resolved infectious , 33 Viral 03/03/13 Resolved aywdhmysmprmgdb06 Vitamin D 07/14/13 Active aavxwhekdu86 1Data migrated from [employer] on 10/26/14. [...] Comment: fluzone (quadrivalent) no preservative (>3 yrs.) [[id number]]. Migrated from OBS ; Data migrated from [...]
--- OUTSIDE RECORDS SUMMARY | 2018-07-20 03:56 | XMS REPORT | Summary of Care ---
Author Author [facility] Address Unknown Phone Unavailable Encounter HQ Shayy_pasquale(FIN) [id number] Date(s): 08/16/17 - 09/14/17 [facility] Discharge Disposition: Home or Self [...] Active Dysfunction of 03/28/14 Active eustachian tube10 Ezxgaaw29 03/28/14 Active Edema of lower 11/01/12 Active qsprhsnsu63 Lcxfadx28 07/13/13 Active Foot pain14 05/19/13 Active Gastric Resolved ulcer(Confirmed) Gastritis(Confirmed) Active Gastroparesis 08/02/13 Active ylzebjfq77 Gastroparesis(Confir Resolved med) Orqzopdyl17 10/01/14 Active H/O: Active migraine(Confirmed) Hiatal uetmon33 08/02/13 Active Rxgetoddhuwtdj62 10/30/13 Active Impaired glucose 07/14/13 Active oekymevdh28 Low back pain20 10/01/14 Active Lumbar dnamnybodkh95 01/25/13 Active Chronic bipolar Active disorder(Confirmed) Meralgia 10/30/13 Active ndprzczxntey09 Rljpfpdq47 12/07/12 Active Neck pain24 05/19/13 Active Lonucyr14 11/01/12 Active Recurrent 03/28/14 Active maajhyfgi52 Recurrent urinary 12/01/13 Active tract ekgmgawls88 Restless legs28 11/01/12 Active Restless legs Active syndrome(Confirmed) Retention of urine29 08/29/13 Active Serum TSH level 07/14/13 Active cufulhuu10 Tear of meniscus of 01/25/13 Active knee31 Urinary tract 10/30/13 Resolved infectious wmugzrr80, 33 Viral 03/03/13 Resolved uhyteittipfpueu30 Vitamin D 07/14/13 Active oxxwjzebky27 1Data migrated from [employer] on 10/26/14. [...] Comment: fluzone (quadrivalent) no preservative (>3 yrs.) [[id number]]. Migrated from OBS ; Data migrated from [...]
--- OUTSIDE RECORDS SUMMARY | 2018-07-20 03:56 | XMS REPORT | Summary of Care ---
Author Author [facility] Organization [facility] Address Unknown Phone Unavailable Encounter CORNEL Galeas(GLORIA) [id number] Date(s): 06/13/18 - 06/13/18 [facility] [address] [place] [address]- Discharge Disposition: Home or Self Care Attending Physician: Lj Laguna MD Referring Physician: Lj Laguna MD Vital Signs 1 2 3 Most recent to oldest [Reference Range]: 162.56 cm (06/10/18 11:20 AM) Height 98.1 DegF (06/10/18 11:20 AM) Temperature Oral [96.4-99.1 DegF] 122/78 mmHg 1 (06/13/18 9:45 AM) 131/74 mmHg 2 (06/13/18 9:30 AM) 136/70 mmHg (06/13/18 9:21 AM) Blood Pressure [90-140/60-90 mmHg] 18 BRMIN (06/13/18 9:32 AM) 18 BRMIN (06/13/18 9:25 AM) 20 BRMIN (06/13/18 9:21 AM) Respiratory Rate [14-20 BRMIN] 70 bpm (06/10/18 11:20 AM) Peripheral Pulse Rate [60-100 bpm] 95.114 kg (06/10/18 11:20 AM) Weight 35.99 m2 (06/10/18 11:20 AM) Body Mass Index 1Result Comment: taken at 0932 2Result Comment: taken at 0925. pt is extremely agitated wants to have bp cuff removed Problem List Condition Effective Dates Status Health Status Informant Acute cystitis1, 2 07/26/13 Resolved Allergic rhinitis3 03/03/13 Active Anxiety Active depression(Confirmed ) Benign hypertension4 11/01/12 Active Bronchitis5 10/01/14 Active Carpal tunnel 01/25/13 Active syndrome6 Chronic pain 01/25/13 Active syndrome7 Right knee Active DJD(Confirmed)8 Depressive disorder9 05/19/13 Active Dysfunction of 03/28/14 Active eustachian tube10 Codztzm38 03/28/14 Active Edema of lower 11/01/12 Active ugbzgqiwi84 Xqqlpgy01 07/13/13 Active Foot pain14 05/19/13 Active Gastric Resolved ulcer(Confirmed) Gastritis(Confirmed) Active Gastroparesis 08/02/13 Active pezyenqe73 Gastroparesis(Confir Resolved med) Gofjpsozt54 10/01/14 Active H/O: Active migraine(Confirmed) Hiatal 08/02/13 Active Izfzhkmygcysqq86 10/30/13 Active Impaired glucose 07/14/13 Active Low back pain20 10/01/14 Active Lumbar xlrjnycskru91 01/25/13 Active Chronic bipolar Active disorder(Confirmed) Meralgia 10/30/13 Active unkffpdzbbrm31 Qymuimay34 12/07/12 Active Neck pain24 05/19/13 Active Erogvuu41 11/01/12 Active Recurrent 03/28/14 Active gmglubdfl98 Recurrent urinary 12/01/13 Active tract hsatyyorf98 Restless legs28 11/01/12 Active Restless legs Active syndrome(Confirmed) Retention of urine29 08/29/13 Active Serum TSH level 07/14/13 Active aizfeune67 Tear of meniscus of 01/25/13 Active knee31 Urinary tract 10/30/13 Resolved infectious khadlye59, 33 Viral 03/03/13 Resolved owuiuyupuiuydap88 Vitamin D 07/14/13 Active kmmeatncbw77 1Data migrated from [employer] on 10/26/14. [...] Reaction Severity Status sulfa drugs Active Medications acetaminophen-hydrocodone 325 mg-7.5 mg oral tablet 1 tab, PO, Q6H, 0 Refill(s) Start Date: 06/10/18 Status: Ordered ONAbotulinumtoxinA 100 unit, Route: INJ, Drug form: INJ, ONCALL, Dosing Weight 95.114, kg, Start da te: 06/13/18 8:00:00 [employer], Duration: 1 day, Stop date: 06/14/18 7:59:00 [employer] Notes: "TO BE RECONSTITUTED AND ADMINISTERED ONLY BY A PHYSICIAN"Reconstitute wi th preservative free NS only. Stability=4 hours after reconstitution. (Same As: Botox)WASTE: F/P - Red; E -Red Start Date: 06/13/18 Stop Date: 06/13/18 Status: Discontinued Results No data available for this section Immunizations Given and Recorded Vaccine Date Status Refusal Reason diphtheria/pertussis/tetanus tox 12/30/16 Recorded influenza virus vaccine, inactivated 12/22/16 Given influenza virus vaccine, inactivated 02/18/16 Given influenza virus vaccine, inactivated 01/02/15 Given pneumococcal 23-valent vaccine 02/12/15 Given Hx influenza vaccine-unspecified1 02/07/14 Given 1Result Comment: fluzone (quadrivalent) no preservative (>3 yrs.) [[id number]]. Migrated from [email or web address] ; Data migrated from [employer] on 05/14/2015. Procedures Procedure Date Related Diagnosis [...]
--- OUTSIDE RECORDS SUMMARY | 2018-07-20 03:56 | XMS REPORT | Summary of Care ---
Author Author [facility] Address Unknown Phone Unavailable Encounter HQ Adal(FIN) [id number] Date(s): 05/05/18 - 05/05/18 [facility] [address] [place] [phone] Attending Physician: Chel Rudd MD Referring Physician: Nannette Amaro MD Vital [...] Active Dysfunction of 03/28/14 Active eustachian tube10 Nhpicax59 03/28/14 Active Edema of lower 11/01/12 Active wltghhceb64 Lewdsip67 07/13/13 Active Foot pain14 05/19/13 Active Gastric Resolved ulcer(Confirmed) Gastritis(Confirmed) Active Gastroparesis 08/02/13 Active egqglzxk38 Gastroparesis(Confir Resolved med) Ughcxwfws81 10/01/14 Active H/O: Active migraine(Confirmed) Hiatal kkroop69 08/02/13 Active Kfewyrvkwmirqc38 10/30/13 Active Impaired glucose 07/14/13 Active typsfznnm47 Low back pain20 10/01/14 Active Lumbar 01/25/13 Active Chronic bipolar Active disorder(Confirmed) Meralgia 10/30/13 Active rgdwzrymostq54 Dexbjfmm46 12/07/12 Active Neck pain24 05/19/13 Active Jxpjbog38 11/01/12 Active Recurrent 03/28/14 Active opjpityke33 Recurrent urinary 12/01/13 Active tract epbwznpxx43 Restless legs28 11/01/12 Active Restless legs Active syndrome(Confirmed) Retention of urine29 08/29/13 Active Serum TSH level 07/14/13 Active fdqvwpab18 Tear of meniscus of 01/25/13 Active knee31 Urinary tract 10/30/13 Resolved infectious luodkul07, 33 Viral 03/03/13 Resolved doormtkomrdbkls38 Vitamin D 07/14/13 Active zbhsjouzjg55 1Data migrated from [employer] on 10/26/14. [...] Comment: fluzone (quadrivalent) no preservative (>3 yrs.) [[id number]]. Migrated from OBS ; Data migrated from [...]
--- OUTSIDE RECORDS SUMMARY | 2018-07-20 03:56 | XMS REPORT | Summary of Care ---
Author Author [facility] [place] Organization [facility] [place] Address Unknown Phone Unavailable Encounter CORNEL Galeas(FIN) [id number] Date(s): 09/16/17 - 09/16/17 [facility] [place] [address] [place] [address] [facility] [phone] Discharge Disposition: Home or Self Care Attending Physician: Bárbara Ledesma MD Vital Signs No data available for this section Problem List Condition Effective Dates Status Health Status Informant Acute cystitis1, 2 07/26/13 Resolved Allergic rhinitis3 03/03/13 Active Anxiety Active depression(Confirmed ) Benign hypertension4 11/01/12 Active Bronchitis5 10/01/14 Active Carpal tunnel 01/25/13 Active syndrome6 Chronic pain 01/25/13 Active syndrome7 Right knee Active DJD(Confirmed)8 Depressive disorder9 05/19/13 Active Dysfunction of 03/28/14 Active eustachian tube10 Iwngkxm75 03/28/14 Active Edema of lower 11/01/12 Active exvigcuqk93 Zfdfjxs51 07/13/13 Active Foot pain14 05/19/13 Active Gastric Resolved ulcer(Confirmed) Gastritis(Confirmed) Active Gastroparesis 08/02/13 Active Gastroparesis(Confir Resolved med) Fqhmgmamj83 10/01/14 Active H/O: Active migraine(Confirmed) Hiatal 08/02/13 Active Mlknozjgwovnig52 10/30/13 Active Impaired glucose 07/14/13 Active rreaglddm07 Low back pain20 10/01/14 Active Lumbar yzuneqswjev34 01/25/13 Active Chronic bipolar Active disorder(Confirmed) Meralgia 10/30/13 Active bcngsesvvvqa27 Epeogrfk76 12/07/12 Active Neck pain24 05/19/13 Active Iogxafc28 11/01/12 Active Recurrent 03/28/14 Active bibxempfj47 Recurrent urinary 12/01/13 Active tract aitdvduta72 Restless legs28 11/01/12 Active Restless legs Active syndrome(Confirmed) Retention of urine29 08/29/13 Active Serum TSH level 07/14/13 Active Tear of meniscus of 01/25/13 Active knee31 Urinary tract 10/30/13 Resolved infectious bcyezji62, 33 Viral 03/03/13 Resolved oatwhdaazwamzll25 Vitamin D 07/14/13 Active zlmonizblr03 1Data migrated from [employer] on 10/26/14. [...] Comment: fluzone (quadrivalent) no preservative (>3 yrs.) [[id number]]. Migrated from OBS ; Data migrated from [...]
--- OUTSIDE RECORDS SUMMARY | 2018-07-20 03:56 | XMS REPORT | Summary of Care ---
Author Author [facility] Address Unknown Phone Unavailable Encounter HQ Adal(FIN) [id number] Date(s): 10/19/17 - 10/19/17 [facility] [address] [place] [phone] Discharge Disposition: Home or Self Care Attending Physician: Bárbara Ledesma MD Referring Physician: Nannette Amaro MD Vital Signs Most recent to 1 oldest [Reference Range]: Height 154.94 cm (10/19/17 2:38 PM) Temperature Oral 98.9 DegF [96.4-99.1 DegF] (10/19/17 2:38 PM) Blood Pressure 126/86 mmHg [90-140/60-90 mmHg] (10/19/17 2:38 PM) Peripheral Pulse 81 bpm Rate [60-100 bpm] (10/19/17 2:38 PM) Weight 98.636 kg (10/19/17 2:38 PM) Body Mass Index 41.09 m2 (10/19/17 2:38 PM) Problem List Condition Effective Dates Status Health Status Informant Acute cystitis1, 2 07/26/13 Resolved Allergic rhinitis3 03/03/13 Active Anxiety Active depression(Confirmed ) Benign hypertension4 11/01/12 Active Bronchitis5 10/01/14 Active Carpal tunnel 01/25/13 Active syndrome6 Chronic pain 01/25/13 Active syndrome7 Right knee Active DJD(Confirmed)8 Depressive disorder9 05/19/13 Active Dysfunction of 03/28/14 Active eustachian tube10 Imvemrk25 03/28/14 Active Edema of lower 11/01/12 Active Xqkslqq53 07/13/13 Active Foot pain14 05/19/13 Active Gastric Resolved ulcer(Confirmed) Gastritis(Confirmed) Active Gastroparesis 08/02/13 Active mmsyfmvs63 Gastroparesis(Confir Resolved med) Xisybktwt69 10/01/14 Active H/O: Active migraine(Confirmed) Hiatal 08/02/13 Active Vtgndlbizaklus10 10/30/13 Active Impaired glucose 07/14/13 Active gepitbzih54 Low back pain20 10/01/14 Active Lumbar uxcibkwzesh41 01/25/13 Active Chronic bipolar Active disorder(Confirmed) Meralgia 10/30/13 Active czykvdfiyhdl93 Sqjvipyi19 12/07/12 Active Neck pain24 05/19/13 Active Vtazssn93 11/01/12 Active Recurrent 03/28/14 Active mixyaoroy31 Recurrent urinary 12/01/13 Active tract njnysiqpe21 Restless legs28 11/01/12 Active Restless legs Active syndrome(Confirmed) Retention of urine29 08/29/13 Active Serum TSH level 07/14/13 Active Tear of meniscus of 01/25/13 Active knee31 Urinary tract 10/30/13 Resolved infectious hzepudw08, 33 Viral 03/03/13 Resolved nmfwrdqjmuubltd86 Vitamin D 07/14/13 Active dyooosuwqy52 1Data migrated from [employer] on 10/26/14. [...] Substance Reaction Severity Status NKDA Active Medications Augmentin 875 mg oral tablet 875 mg=1 tab, PO, BID, X 10 day, # 20 tab, 0 Refill(s), Pharmacy: [facility] [id number] Start Date: 10/19/17 Stop Date: 10/29/17 Status: Ordered Xyzal 5 mg oral tablet 5 mg=1 tab, PO, QPM, # 30 tab, 1 Refill(s), Pharmacy: [facility] [id number] Start Date: 10/19/17 Status: Ordered Results No data available for this section Immunizations Given and Recorded Vaccine Date Status Refusal Reason diphtheria/pertussis/tetanus tox 12/30/16 Recorded influenza virus vaccine, inactivated 12/22/16 Given influenza virus vaccine, inactivated 02/18/16 Given influenza virus vaccine, inactivated 01/02/15 Given pneumococcal 23-valent vaccine 02/12/15 Given Hx influenza vaccine-unspecified1 02/07/14 Given 1Result Comment: fluzone (quadrivalent) no preservative (>3 yrs.) [[id number]]. Migrated from OBS ; Data migrated from [employer] on 05/14/2015. Procedures Procedure Date Related Diagnosis [...] Reg Smoking Cessation Counseling No entered on: 10/19/17 Assessment and Plan No data available for this section
--- OUTSIDE RECORDS SUMMARY | 2018-07-20 03:56 | XMS REPORT | Summary of Care ---
Author Author [facility] Organization [facility] Address Unknown Phone Unavailable Encounter HQ Shayy_pasquale(FIN) [id number] Date(s): 05/06/17 - 05/07/17 [facility] [address] [place] [phone] Vital Signs No data available for this section Problem List Condition Effective Dates Status Health Status Informant Acute cystitis1, 2 07/26/13 Resolved Allergic rhinitis3 03/03/13 Active Anxiety Active depression(Confirmed ) Benign hypertension4 11/01/12 Active Bronchitis5 10/01/14 Active Carpal tunnel 01/25/13 Active syndrome6 Chronic pain 01/25/13 Active syndrome7 Right knee Active DJD(Confirmed)8 Depressive disorder9 05/19/13 Active Dysfunction of 03/28/14 Active eustachian tube10 Jvwypkj66 03/28/14 Active Edema of lower 11/01/12 Active cceqwdbvj80 Ujvjtbd98 07/13/13 Active Foot pain14 05/19/13 Active Gastric Resolved ulcer(Confirmed) Gastritis(Confirmed) Active Gastroparesis 08/02/13 Active lirebbky57 Gastroparesis(Confir Resolved med) Lzzhzhhfp28 10/01/14 Active H/O: Active migraine(Confirmed) Hiatal cmyfrr84 08/02/13 Active Wttlhwarigjzpw69 10/30/13 Active Impaired glucose 07/14/13 Active pntnfkith13 Low back pain20 10/01/14 Active Lumbar gktsprkqcah02 01/25/13 Active Chronic bipolar Active disorder(Confirmed) Meralgia 10/30/13 Active xyuguxyvkjnj20 Soqcynjq16 12/07/12 Active Neck pain24 05/19/13 Active Rqercto03 11/01/12 Active Recurrent 03/28/14 Active zqlkejoxy97 Recurrent urinary 12/01/13 Active tract dbapxhvuu85 Restless legs28 11/01/12 Active Restless legs Active syndrome(Confirmed) Retention of urine29 08/29/13 Active Serum TSH level 07/14/13 Active rcvedbyb06 Tear of meniscus of 01/25/13 Active knee31 Urinary tract 10/30/13 Resolved infectious msbixhp90, 33 Viral 03/03/13 Resolved fvblaehnkdgjbav80 Vitamin D 07/14/13 Active 1Data migrated from [employer] on 10/26/14. [...] capsule 500 mg=1 cap, PO, TID, X 7 day, # 21 cap, 0 Refill(s), Pharmacy: [facility] [id number] Start Date: 06/04/17 Stop Date: 06/11/17 Status: Completed rOPINIRole 4 mg oral tablet 4 mg=1 tab, PO, TID, # 270 tab, 0 Refill(s), Pharmacy: [facility] [id number] Start Date: 05/07/17 Stop Date: 08/05/17 Status: Ordered Results No data available for this section Immunizations Given and Recorded Vaccine Date Status Refusal Reason diphtheria/pertussis/tetanus tox 12/30/16 Recorded influenza virus vaccine, inactivated 12/22/16 Given influenza virus vaccine, inactivated 02/18/16 Given influenza virus vaccine, inactivated 01/02/15 Given pneumococcal 23-valent vaccine 02/12/15 Given Hx influenza vaccine-unspecified1 02/07/14 Given 1Result Comment: fluzone (quadrivalent) no preservative (>3 yrs.) [[id number]]. Migrated from [facility] ; Data migrated from [employer] on 05/14/2015. Procedures Procedure Date Related Diagnosis [...]
--- OUTSIDE RECORDS SUMMARY | 2018-07-20 03:56 | XMS REPORT | Summary of Care ---
Author Author [facility] Address Unknown Phone Unavailable Encounter CORNEL Galeas(FIN) [id number] Date(s): 07/07/17 - 08/05/17 [facility] Discharge Disposition: Home or Self Care Attending [...] Active Dysfunction of 03/28/14 Active eustachian tube10 Xdvkirn96 03/28/14 Active Edema of lower 11/01/12 Active vnleraxwj94 Uoswvat04 07/13/13 Active Foot pain14 05/19/13 Active Gastric Resolved ulcer(Confirmed) Gastritis(Confirmed) Active Gastroparesis 08/02/13 Active cyeppjqe25 Gastroparesis(Confir Resolved med) Seyebbzzh10 10/01/14 Active H/O: Active migraine(Confirmed) Hiatal nubhyh41 08/02/13 Active Suwsokegwjcort64 10/30/13 Active Impaired glucose 07/14/13 Active lmgiypubu81 Low back pain20 10/01/14 Active Lumbar ajispsshlwi64 01/25/13 Active Chronic bipolar Active disorder(Confirmed) Meralgia 10/30/13 Active rsxsypraklfg06 Uqhwjvsh08 12/07/12 Active Neck pain24 05/19/13 Active Fjlfyxu45 11/01/12 Active Recurrent 03/28/14 Active bfihvwbjk55 Recurrent urinary 12/01/13 Active tract Restless legs28 11/01/12 Active Restless legs Active syndrome(Confirmed) Retention of urine29 08/29/13 Active Serum TSH level 07/14/13 Active Tear of meniscus of 01/25/13 Active knee31 Urinary tract 10/30/13 Resolved infectious , 33 Viral 03/03/13 Resolved dkpfalwuciaylak09 Vitamin D 07/14/13 Active rwepzvfaqg63 1Data migrated from [employer] on 10/26/14. [...] Comment: fluzone (quadrivalent) no preservative (>3 yrs.) [[id number]]. Migrated from OBS ; Data migrated from [...]
--- OUTSIDE RECORDS SUMMARY | 2018-07-20 03:57 | XMS REPORT | Summary of Care ---
Author Author [facility] Address Unknown Phone Unavailable Encounter HQ Adal([place]OR[place]) [id number] Date(s): 04/22/16 - 05/21/16 [facility] Discharge Disposition: Home or Self Care Attending Physician: Avery Quach MD Vital Signs No data available for this section Problem List Condition Effective Dates Status Health Status Informant Acute cystitis1, 2 07/26/13 Resolved Allergic rhinitis3 03/03/13 Active Anxiety Active depression(Confirmed ) Benign hypertension4 11/01/12 Active Bronchitis5 10/01/14 Active Carpal tunnel 01/25/13 Active syndrome6 Chronic pain 01/25/13 Active syndrome7 Right knee Active DJD(Confirmed)8 Depressive disorder9 05/19/13 Active Dysfunction of 03/28/14 Active eustachian tube10 Lmmymww67 03/28/14 Active Edema of lower 11/01/12 Active nuuzxettf57 Ckaeifc85 07/13/13 Active Foot pain14 05/19/13 Active Gastric Resolved ulcer(Confirmed) Gastritis(Confirmed) Active Gastroparesis 08/02/13 Active ipzpfzsb10 Gastroparesis(Confir Resolved med) Diextqkzs81 10/01/14 Active H/O: Active migraine(Confirmed) Hiatal inuatd40 08/02/13 Active Hdrapwjfsuydkd93 10/30/13 Active Impaired glucose 07/14/13 Active ncqsmfowk47 Low back pain20 10/01/14 Active Lumbar tcxmsrautcy08 01/25/13 Active Chronic bipolar Active disorder(Confirmed) Meralgia 10/30/13 Active zetwszxsmqzo42 Exuafoob27 12/07/12 Active Neck pain24 05/19/13 Active Lsasoft54 11/01/12 Active Recurrent 03/28/14 Active Recurrent urinary 12/01/13 Active tract xxbtiluru98 Restless legs28 11/01/12 Active Restless legs Active syndrome(Confirmed) Retention of urine29 08/29/13 Active Serum TSH level 07/14/13 Active wgbocfep83 Tear of meniscus of 01/25/13 Active knee31 Urinary tract 10/30/13 Resolved infectious mropufm49, 33 Viral 03/03/13 Resolved rqaaguzeboqmwoz60 Vitamin D 07/14/13 Active ahxcvpcdpa21 1Data migrated from [employer] on 10/26/14. [...] Comment: fluzone (quadrivalent) no preservative (>3 yrs.) [[id number]]. Migrated from OBS ; Data migrated from [...]
--- OUTSIDE RECORDS SUMMARY | 2018-07-20 03:57 | XMS REPORT | Summary of Care ---
Author Author [facility] Address Unknown Phone Unavailable Encounter HQ Adal(FIN) [id number] Date(s): 05/11/18 - 05/11/18 [facility] [address] [place] [phone] Discharge Disposition: Home or Self Care Attending Physician: Chel Rudd MD Referring Physician: Nannette Amaro MD Vital Signs Most recent to 1 oldest [Reference Range]: Height 157.48 cm (05/11/18 11:25 AM) Temperature Oral 98.6 DegF [96.4-99.1 DegF] (05/11/18 11:25 AM) Blood Pressure 132/88 mmHg [90-140/60-90 mmHg] (05/11/18 11:25 AM) Peripheral Pulse 78 bpm Rate [60-100 bpm] (05/11/18 11:25 AM) Weight 94.091 kg (05/11/18 11:25 AM) Body Mass Index 37.94 m2 (05/11/18 11:25 AM) Problem List Condition Effective Dates Status Health Status Informant Acute cystitis1, 2 07/26/13 Resolved Allergic rhinitis3 03/03/13 Active Anxiety Active depression(Confirmed ) Benign hypertension4 11/01/12 Active Bronchitis5 10/01/14 Active Carpal tunnel 01/25/13 Active syndrome6 Chronic pain 01/25/13 Active syndrome7 Right knee Active DJD(Confirmed)8 Depressive disorder9 05/19/13 Active Dysfunction of 03/28/14 Active eustachian tube10 Rgszabx32 03/28/14 Active Edema of lower 11/01/12 Active lnofmhfkm84 Wboimpc80 07/13/13 Active Foot pain14 05/19/13 Active Gastric Resolved ulcer(Confirmed) Gastritis(Confirmed) Active Gastroparesis 08/02/13 Active yqdotzij76 Gastroparesis(Confir Resolved med) Iceqaxgfz83 10/01/14 Active H/O: Active migraine(Confirmed) Hiatal yirrqr48 08/02/13 Active Zfctjuovzlacdg92 10/30/13 Active Impaired glucose 07/14/13 Active ldueoptry12 Low back pain20 10/01/14 Active Lumbar akglcimngij18 01/25/13 Active Chronic bipolar Active disorder(Confirmed) Meralgia 10/30/13 Active larswmjlafat98 Gxfksjka24 12/07/12 Active Neck pain24 05/19/13 Active Ahhobtb24 11/01/12 Active Recurrent 03/28/14 Active qtmstzzuy49 Recurrent urinary 12/01/13 Active tract jikpzjwoe43 Restless legs28 11/01/12 Active Restless legs Active syndrome(Confirmed) Retention of urine29 08/29/13 Active Serum TSH level 07/14/13 Active Tear of meniscus of 01/25/13 Active knee31 Urinary tract 10/30/13 Resolved infectious , 33 Viral 03/03/13 Resolved fmedqwwfvaegbcl30 Vitamin D 07/14/13 Active syopvkxkpq57 1Data migrated from [employer] on 10/26/14. [...] Substance Reaction Severity Status NKDA Active Medications ergocalciferol 50,000 intl units oral capsule 50,000 IntlUnit=1 cap, PO, qWeek, # 12 cap, 0 Refill(s), [facility] [id number] Start Date: 05/11/18 Stop Date: 08/03/18 Status: Ordered Fioricet 300 mg-50 mg-40 mg oral capsule 1 cap, PO, Q4H, PRN PRN Headache, Do not exceed 6 capsules in 24 hours, # 60 cap , 1 Refill(s), Pharmacy: [facility] [id number] Start Date: 05/11/18 Status: Ordered hydrOXYzine hydrochloride 25 mg oral tablet 1-2 tab, PO, Bedtime, PRN Sleep, X 30 day, # 60 tab, 0 Refill(s), [facility] [id number] Start Date: 05/11/18 Stop Date: 06/10/18 Status: Ordered levothyroxine 75 mcg (0.075 mg) oral tablet 75 microgram=1 tab, PO, Daily, # 90 tab, 0 Refill(s), Pharmacy: [facility] [id number] Start Date: 05/11/18 Status: Ordered Pristiq 100 mg oral tablet, extended release 100 mg=1 tab, PO, Daily, # 30 tab, 0 Refill(s), [facility], Pharmacy: [facility] [id number], brand name preferred Start Date: 05/11/18 Status: Ordered Results No data available for this section Immunizations Given and Recorded Vaccine Date Status Refusal Reason diphtheria/pertussis/tetanus tox 12/30/16 Recorded influenza virus vaccine, inactivated 12/22/16 Given influenza virus vaccine, inactivated 02/18/16 Given influenza virus vaccine, inactivated 01/02/15 Given pneumococcal 23-valent vaccine 02/12/15 Given Hx influenza vaccine-unspecified1 02/07/14 Given 1Result Comment: fluzone (quadrivalent) no preservative (>3 yrs.) [[id number]]. Migrated from [facility] ; Data migrated from [employer] on 05/14/2015. Procedures Procedure Date Related Diagnosis Body Site Status Colonoscopy1 04/12/17 Completed Mammogram2 04/12/14 Completed Appendectomy Completed Arthroscopy of knee Completed Carpal tunnel release Completed Esophagogastroduodenoscopy Completed 1normal 2normal Social History Social History Type Response Alcohol Never Smoking Status Never smoker; Previous treatment: None; Exposure to Tobacco Smoke None; Cigarette Smoking Last 365 Days No; Reg Smoking Cessation Counseling No entered on: 05/11/18 Assessment and Plan No data available for this section
--- OUTSIDE RECORDS SUMMARY | 2018-07-20 03:57 | XMS REPORT | Summary of Care ---
Author Organization Unknown Address Unknown Phone Unavailable Encounter HQ Adal(GLORIA) [id number] Date(s): 10/19/13 - 10/19/13 [facility] [address] [place] [address] Discharge Disposition: Home Physician Attending: Rand Mcginnis MD Physician Admitting: Rand Mcginnis MD Physician_Referring: Rand Mcginnis MD Reason for Visit DEVIATED NASAL SEPTUM, TURBINATE HYPERTROPHY Vital Signs Most recent to 1 2 3 4 oldest [Reference Range]: Height 160.02 cm 160.02 cm (10/19/13 11:25 AM) (10/04/13 2:05 PM) Systolic Blood 146 mmHg 111 mmHg 139 mmHg 155 mmHg Pressure [90-140 *HI* (10/19/13 3:00 PM) (10/19/13 2:45 PM) *HI* mmHg] (10/19/13 3:21 PM) (10/19/13 2:45 PM) Diastolic Blood 68 mmHg 52 mmHg 100 mmHg 65 mmHg Pressure [60-90 (10/19/13 3:21 PM) *LOW* *HI* (10/19/13 2:45 PM) mmHg] (10/19/13 3:00 PM) (10/19/13 2:45 PM) Respiratory Rate 20 BRMIN 19 BRMIN 31 BRMIN 20 BRMIN [14-20 BRMIN] (10/19/13 3:21 PM) (10/19/13 3:00 PM) *HI* (10/19/13 2:45 PM) (10/19/13 2:45 PM) Peripheral Pulse 86 bpm 63 bpm Rate [60-100 bpm] (10/19/13 3:21 PM) (10/19/13 11:38 AM) Weight 96.364 kg 96.364 kg (10/19/13 11:25 AM) (10/04/13 2:05 PM) Body Mass Index 37.63 m2 37.63 m2 (10/19/13 11:25 AM) (10/04/13 2:05 PM) Problem List Condition Effective Dates Status Health Status Informant Anxiety Active depression(Confirmed ) Gastric Resolved ulcer(Confirmed) Gastritis(Confirmed) Active Gastroparesis(Confir Resolved med) H/O: Active migraine(Confirmed) Hiatal Active hernia(Confirmed) Restless legs Active syndrome(Confirmed) Allergies, Adverse Reactions, Alerts Substance Reaction Severity Status NKDA Active Medications caffeine 400 mg, Route: PO, ONCE, Dosing Weight 96.364, kg, Start date: 10/19/13 15:18:00 , Stop date: 10/19/13 15:18:00 Start Date: 10/19/13 Stop Date: 10/19/13 Status: Completed ceFAZolin 2 gm, 50 mL, Route: IVPB, Drug form: INJ, PRE OP, Start date: 10/18/13 23:00:00, Duration: 1 day, Stop date: 10/19/13 22:59:00 Start Date: 10/18/13 Stop Date: 10/19/13 Status: Completed flumazenil 0.2 mg, 2 mL, Route: IVP, Drug form: INJ, PRN, Dosing Weight 96.364, kg, PRN Kwadwo zodiazepine Reversal, Initial dose, Start date: 10/19/13 14:29:00, Stop date: 0:00:00 Notes: (Same as: Romazicon) Start Date: 10/19/13 Stop Date: 10/20/13 Status: Completed hydromorphone 0.5 mg, 0.25 mL, Route: IVP, Drug form: INJ, Q5Min, Dosing Weight 96.364, kg, AK N Pain Score 7-10, Start date: 10/19/13 14:29:00, Duration: 4 doses or times, St op date: 10/20/13 0:00:00 Notes: Same as: Dilaudid Start Date: 10/19/13 Stop Date: 10/19/13 Status: Completed ketorolac 30 mg/mL injectable solution 30 mg, Route: IV, ONCE, Dosing Weight 96.364, kg, Start date: 10/19/13 14:56:00, Stop date: 10/19/13 14:56:00 Start Date: 10/19/13 Stop Date: 10/19/13 Status: Completed naloxone 0.04 mg, 0.1 mL, Route: IVP, Drug form: INJ, Q2MIN, Dosing Weight 96.364, kg, AK N Narcotic Reversal, Start date: 10/19/13 14:29:00, Duration: 8 doses or times, Stop date: 10/20/13 0:00:00 Notes: Same as Narcan Start Date: 10/19/13 Stop Date: 10/20/13 Status: Completed Calhoun 5/325 oral tablet 1 tab, PO, Q4H, for pain, # 20 tab, 0 Refill(s) Start Date: 10/19/13 Status: Ordered Ofirmev 1,000 mg, 100 mL, Route: IV, Drug form: INJ, ONCE, Dosing Weight 96.364, kg, PRN Pain, for > or=50 kg, Priority: STAT, Start date: 10/19/13 11:54:00 Notes: Infuse over 15 minutes Do not exceed 4gm/day of acetaminophen Start Date: 10/19/13 Stop Date: 10/20/13 Status: Discontinued ondansetron 4 mg, 2 mL, Route: IVP, Drug form: INJ, ONCE, Dosing Weight 96.364, kg, PRN Naus ea & Vomiting, Start date: 10/19/13 14:29:00 Notes: (Same as: Zofran) Start Date: 10/19/13 Stop Date: 10/19/13 Status: Completed promethazine 6.25 mg, Route: IVPB, ONCE, Dosing Weight 96.364, kg, Start date: 10/19/13 14:55 :00, Stop date: 10/19/13 14:55:00 Start Date: 10/19/13 Stop Date: 10/19/13 Status: Completed Zofran 4 mg, 2 mL, Route: IVP, Drug form: INJ, ONCE, Dosing Weight 96.364, kg, Priority : STAT, Start date: 10/19/13 11:54:00, Stop date: 10/19/13 11:54:00 Notes: (Same as: Zofran) Start Date: 10/19/13 Stop Date: 10/19/13 Status: Ordered Results ELECTROLYTES Most recent to 1 oldest [Reference Range]: Sodium Lvl [135-145 139 mEq/L mEq/L] (10/19/13 11:26 AM) Potassium Lvl 3.8 mEq/L [3.5-5.1 mEq/L] (10/19/13 11:26 AM) Chloride Lvl [95-109 106 mEq/L mEq/L] (10/19/13 11:26 AM) CO2 [24-32 mEq/L] 21 mEq/L *LOW* (10/19/13 11:26 AM) AGAP [10.0-20.0 15.8 mEq/L mEq/L] (10/19/13 11:26 AM) CHEM PANEL Most recent to 1 oldest [Reference Range]: Creatinine Lvl 0.7 mg/dL [0.5-1.4 mg/dL] (10/19/13 11:26 AM) eGFR 104 mL/min/1.73m2 1 *NA* (10/19/13:26 AM) BUN [7-22 mg/dL] 11 mg/dL (10/19/13 11:26 AM) Glucose Lvl [70-99 99 mg/dL 2 mg/dL] (10/19/13:26 AM) Calcium Lvl 8.4 mg/dL [8.5-10.5 mg/dL] *LOW* (10/19/13 11:26 AM) 1Result Comment: The eGFR is calculated using [...] from the National Kidney Disease Education Program ( NKDEP) which additionally recommends that when the eGFR is used in patients with extremes of body mass index for purposes of drug dosing, the eGFR should be mul tiplied by the estimated BMI. 2Interpretive Data: Adult reference range values reflect the clinical guidelines of the [place] [employer]. HEMATOLOGY Most recent to 1 oldest [Reference Range]: WBC [3.7-10.4 K/CMM] 11.5 K/CMM *HI* (10/19/13:26 AM) RBC [4.20-5.40 5.20 M/CMM M/CMM] (10/19/13:26 AM) Hgb [12.0-16.0 g/dL] 14.3 g/dL (10/19/13 AM) Hct [36.0-48.0 %] 43.9 % (10/19/13: AM) MCV [81.0-99.0 fL] 84.6 fL (10/19/13: AM) MCH [27.0-31.0 pg] 27.5 pg (10/19/13 AM) MCHC [32.0-36.0 32.6 g/dL g/dL] (10/19/13:26 AM) RDW [11.5-14.5 %] 15.9 % *HI* (10/19/13:26 AM) Platelet [133-450 327 K/CMM K/CMM] (10/19/13 11:26 AM) MPV [7.4-10.4 fL] 7.4 fL (10/19/13:26 AM) Segs [45.0-75.0 %] 63.2 % (10/19/13:26 AM) Lymphocytes 26.7 % [20.0-40.0 %] (10/19/13 AM) Monocytes [2.0-12.0 5.2 % %] (10/19/13:26 AM) Eosinophils [0.0-4.0 4.3 % %] *HI* (10/19/13: AM) Basophils [0.0-1.0 0.6 % %] (10/19/13 11:26 AM) Segs-Bands # 7.3 K/CMM [1.5-8.1 K/CMM] (10/19/13 11:26 AM) Lymphocytes # 3.1 K/CMM [1.0-5.5 K/CMM] (7/10/14 11:26 AM) Monocytes # [0.0-0.8 0.6 K/CMM K/CMM] (10/19/13 11:26 AM) Eosinophils # 0.5 K/CMM [0.0-0.5 K/CMM] (10/19/13 11:26 AM) Basophils # [0.0-0.2 0.1 K/CMM K/CMM] (10/19/13 11:26 AM) PT [12.0-14.7 12.9 seconds seconds] (10/19/13:26 AM) INR [0.85-1.17] 0.98 3 (10/19/13:26 AM) PTT [22.9-35.8 30.0 seconds 4 seconds] (10/19/13:26 AM) 3Interpretive Data: RECOMMENDED RANGES FOR PROTIME INR: 2.0-3.0 for most medical and surgical thromboembolic states. 2.5-3.5 for artificial heart valves and recurrent embolism. INR SHOULD BE USED ONLY FOR PATIENTS ON STABLE ANTICOAGULANT THERAPY. 4Interpretive Data: Heparin Therapeutic Range: 57 - 92 Seconds Medications Administered During Your Visit No data available for this section Immunizations No data available for this section Social History Social History Type Response Alcohol Use: Never, Previous treatment: None Smoking Status Never smoker, Previous treatment: None, Exposure to Tobacco Smoke None, Cigarette Smoking Last 365 Days No, Reg Smoking Cessation Counseling No
--- OUTSIDE RECORDS SUMMARY | 2018-07-20 03:57 | XMS REPORT | Summary of Care ---
Author Author [facility] Outpatient Imaging [facility] Address Unknown Phone Unavailable Encounter HQ Adal(FIN) [id number] Date(s): 02/18/16 - 02/18/[address] [facility] Outpatient Imaging [address] [phone] Discharge Disposition: Home or Self Care Attending Physician: Nannette Amaro MD Vital Signs No data available for this section Problem List Condition Effective Dates Status Health Status Informant Acute cystitis1, 2 07/26/13 Resolved Allergic rhinitis3 03/03/13 Active Anxiety Active depression(Confirmed ) Benign hypertension4 11/01/12 Active Bronchitis5 10/01/14 Active Carpal tunnel 01/25/13 Active syndrome6 Chronic pain 01/25/13 Active syndrome7 Depressive disorder8 05/19/13 Active Dysfunction of 03/28/14 Active eustachian tube9 Nbiiqpy64 03/28/14 Active Edema of lower 11/01/12 Active qvioebcah64 Zvydhdm26 07/13/13 Active Foot pain13 05/19/13 Active Gastric Resolved ulcer(Confirmed) Gastritis(Confirmed) Active Gastroparesis 08/02/13 Active Gastroparesis(Confir Resolved med) Obkxsyjgw34 10/01/14 Active H/O: Active migraine(Confirmed) Hiatal oqmkfp31 08/02/13 Active Luyopxbstygktn13 10/30/13 Active Impaired glucose 07/14/13 Active rhcnodqjm12 Low back pain19 10/01/14 Active Lumbar edsshvjnbqx88 01/25/13 Active Meralgia 10/30/13 Active eujagavakmqh68 Jyyfvsqx57 12/07/12 Active Neck pain23 05/19/13 Active Wxebheh17 11/01/12 Active Recurrent 03/28/14 Active Recurrent urinary 12/01/13 Active tract hlqjryhzr95 Restless legs27 11/01/12 Active Restless legs Active syndrome(Confirmed) Retention of urine28 08/29/13 Active Serum TSH level 07/14/13 Active ovfvsznz75 Tear of meniscus of 01/25/13 Active knee30 Urinary tract 10/30/13 Resolved infectious wrcbeex88, 32 Viral 03/03/13 Resolved kkltgkcwkpadrno04 Vitamin D 07/14/13 Active hsdmrgidev26 1Data migrated from [employer] on 10/26/14. 2Data migrated from [employer] on 10/26/14. 3Data migrated from [employer] on 09/08/14. 4Data migrated from [employer] on 09/08/14. 5Data migrated from [employer] on 10/17/14. 6Data migrated from [employer] on 09/08/14. 7Data migrated from [employer] on 09/08/14. 8Data migrated from [employer] on 09/08/14. 9Data migrated from [employer] on 09/08/14. 10Data migrated from [employer] on 09/08/14. 11Data migrated from [employer] on 09/08/14. 12Data migrated from [employer] on 09/08/14. 13Data migrated from [employer] on 09/08/14. 14Data migrated from [employer] on 09/08/14. 15Data migrated from [employer] on 10/17/14. 16Data migrated from [employer] on 09/08/14. 17Data migrated from [employer] on 09/08/14. 18Data migrated from [employer] on 09/08/14. 19Data migrated from [employer] on 10/17/14. 20Data migrated from [employer] on 09/08/14. 21Data migrated from [employer] on 09/08/14. [...] 09/08/14. 31Data migrated from [employer] on 10/26/14. 32Data migrated from [employer] on 10/26/14. 33Data migrated from [employer] on 10/26/14. 34Data migrated from [employer] on 09/08/14. Allergies, [...] Comment: fluzone (quadrivalent) no preservative (>3 yrs.) [[id number]]. Migrated from OBS ; Data migrated from [employer] on 05/14/2015. Procedures Procedure Date Related Diagnosis Body Site Arthroscopy of knee Carpal tunnel release Social History Social History Type Response Alcohol Never Smoking Status Never smoker; Previous treatment: None; Exposure to Tobacco Smoke None; Cigarette Smoking Last 365 Days No; Reg Smoking Cessation Counseling No Assessment and Plan No data available for this section
--- OUTSIDE RECORDS SUMMARY | 2018-07-20 03:57 | XMS REPORT | CCD ---
Author Author Auto Generated Organization [facility] Address Unknown Phone Unavailable Care Team Providers Care [employer] Architect Name Role Phone Toan King CP Allergies, Adverse Reactions, Alerts Substance Reaction Status NKDA Active Problem List Condition Effective Dates Status Anxiety depression Active Gastritis Active H/O: migraine Active Hiatal hernia Active Restless legs syndrome Active
--- OUTSIDE RECORDS SUMMARY | 2018-07-20 03:57 | XMS REPORT | Summary of Care ---
Author Organization Unknown Address Unknown Phone Unavailable Encounter Dates Location Diagnoses Discharge Providers Disposition 07/14/2013 [facility] Outpatient Imaging - Home Toan King [facility] 07/14/2013 [address] [place], [place] [address] Reason for Visit 723.1 - [place] Problem List Condition Effective Dates Status Health Status Informant Anxiety Active depression(Confirmed ) Gastritis(Confirmed) Active H/O: Active migraine(Confirmed) Hiatal Active hernia(Confirmed) Restless legs Active syndrome(Confirmed) Allergies, Adverse Reactions, Alerts Status Substance Reaction Severity Active NKDA Medications No data available for this section Medications Administered During Your Visit No data available for this section Immunizations No data available for this section
--- OUTSIDE RECORDS SUMMARY | 2018-07-20 03:57 | XMS REPORT | Summary of Care ---
Author Author [facility] Outpatient Imaging - [place] Organization [facility] [place] Address Unknown Phone Unavailable Encounter HQ Adal(FIN) [id number] Date(s): 08/22/15 - 08/22/15 [facility] Outpatient Imaging - [place] [address] [place], [place] [address] [phone] Discharge Disposition: Home Attending Physician: Nannette Amaro MD Vital Signs No data available for this section Problem List Condition Effective Dates Status Health Status Informant Acute cystitis1, 2 07/26/13 Resolved Allergic rhinitis3 03/03/13 Active Anxiety Active depression(Confirmed ) Benign hypertension4 11/01/12 Active Bronchitis5 10/01/14 Active Carpal tunnel 01/25/13 Active syndrome6 Chronic pain 01/25/13 Active syndrome7 Depressive disorder8 05/19/13 Active Dysfunction of 03/28/14 Active eustachian tube9 Mmyqslf30 03/28/14 Active Edema of lower 11/01/12 Active Ojjprov42 07/13/13 Active Foot pain13 05/19/13 Active Gastric Resolved ulcer(Confirmed) Gastritis(Confirmed) Active Gastroparesis 08/02/13 Active Gastroparesis(Confir Resolved med) Kqpthdaiy60 10/01/14 Active H/O: Active migraine(Confirmed) Hiatal ulvgeg73 08/02/13 Active Omzifrjrdhboln97 10/30/13 Active Impaired glucose 07/14/13 Active oyhdelgpo04 Low back pain19 10/01/14 Active Lumbar taikltmowaq70 01/25/13 Active Meralgia 10/30/13 Active rqlgzaeppytk68 Niawjlfx12 12/07/12 Active Neck pain23 05/19/13 Active Fluxdax99 11/01/12 Active Recurrent 03/28/14 Active Recurrent urinary 12/01/13 Active tract kyphpsvqn10 Restless legs27 11/01/12 Active Restless legs Active syndrome(Confirmed) Retention of urine28 08/29/13 Active Serum TSH level 07/14/13 Active yzahreyp29 Tear of meniscus of 01/25/13 Active knee30 Urinary tract 10/30/13 Resolved infectious eombdvu14, 32 Viral 03/03/13 Resolved hbtbweywekpfkbt75 Vitamin D 07/14/13 Active ghbnuraygq76 1Data migrated from [employer] on 10/26/14. [...] No data available for this section Immunizations Vaccine Date Refusal Reason Hx influenza vaccine-unspecified1 02/07/14 influenza virus vaccine, inactivated 01/02/15 pneumococcal 23-valent vaccine 02/12/15 1Result Comment: fluzone (quadrivalent) no preservative (>3 yrs.) [[id number]]. Migrated from OBS ; Data migrated from [...]
--- OUTSIDE RECORDS SUMMARY | 2018-07-20 03:57 | XMS REPORT | CCD ---
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 Name Role Phone Lj Laguna RP Allergies, Adverse Reactions, Alerts Substance Reaction Status NKDA Active Problem List Condition Effective Dates Status Anxiety depression Active Gastritis Active H/O: migraine Active Hiatal hernia Active Restless legs syndrome Active Medications Medication Instructions Start Date End Date Status Sodium Chloride 0.9% 1,000 mL, Rate: 25 ml/hr, Infuse 02/16/2013 02/16/2013 Discontinued IV 1,000 mL over: 40 hr, Route: IV, Dosing Weight 90.909 kg, Total Volume: 1,000, Start date: 02/16/13 13:47:00, Duration: 1 day, Stop date: 02/17/13 13:46:00 Vital Signs Most recent to oldest [Reference Range]: 1 2 3 Height 157.48 cm (02/15/2013 14:44:00) Systolic Blood Pressure [90-140 mmHg] 113 mmHg (02/16/2013 15:00:00) 119 mmHg (02/16/2013 14:45:00) 102 mmHg (02/16/2013 14:25:00) Diastolic Blood Pressure [60-90 mmHg] 73 mmHg (02/16/2013 15:00:00) 72 mmHg (02/16/2013 14:45:00) 56 mmHg *LOW* (02/16/2013 14:25:00) Respiratory Rate [14-20 BRMIN] 18 BRMIN (02/16/2013 15:00:00) 18 BRMIN (02/16/2013 14:45:00) 18 BRMIN (02/16/2013 14:25:00) Peripheral Pulse Rate [60-100 bpm] 62 bpm (02/16/2013 13:53:00) Weight 90.909 kg (02/15/2013 14:44:00)
--- OUTSIDE RECORDS SUMMARY | 2018-07-20 03:57 | XMS REPORT | Summary of Care ---
Author Organization Unknown Address Unknown Phone Unavailable Encounter HQ Karlantr_pasquale([facility]) [id number] Date(s): 08/17/13 - 08/17/13 [facility] Outpatient Imaging - [address] [address] [place] Discharge Disposition: Home Physician Attending: Rand Mcginnis MD Reason for Visit 350.2 - ATYPICAL FACE P Problem List Condition Effective Dates Status Health [...]
--- OUTSIDE RECORDS SUMMARY | 2018-07-20 03:57 | XMS REPORT | Summary of Care ---
Author Organization Unknown Address Unknown Phone Unavailable Encounter HQ Encntr[facility]pasquale[facility] [id number] Date(s): 08/18/13 - 08/18/13 [facility] Outpatient Imaging - [address] [address] [place] Discharge Disposition: Home Physician Attending: Bouchra Orr MD Reason for Visit 847.0 - SPRAIN OF NECK Problem List Condition Effective Dates Status Health [...]
--- OUTSIDE RECORDS SUMMARY | 2018-07-20 03:57 | XMS REPORT | Summary of Care ---
Author Organization Unknown Address Unknown Phone Unavailable Encounter HQ Michaelar_pasquale([facility]) [id number] Date(s): 07/24/13 - 07/24/13 [facility] Outpatient Imaging - [address] [address] [place] Discharge Disposition: Home Physician Attending: Rosendo Marie Reason for Visit 338 - PAIN NEC Problem List Condition Effective Dates Status Health [...]
--- OUTSIDE RECORDS SUMMARY | 2018-07-20 03:57 | XMS REPORT | Summary of Care ---
Author Author [facility] Organization [facility] Address Unknown Phone Unavailable Encounter CORNEL Galeas(GLORIA) [id number] Date(s): 04/20/16 - 04/21/16 [facility] [address] [place] [address]- [phone] Discharge Disposition: Home or Self Care Attending Physician: Avery Quach MD Admitting Physician: Avery Quach MD Referring Physician: Avery Quach MD Vital Signs 1 2 3 Most recent to oldest [Reference Range]: 157.48 cm (04/20/16 5:14 PM) 157.48 cm (04/07/16 5:09 PM) Height 97.9 DegF (04/21/16 1:00 PM) 97.7 DegF (04/21/16 11:51 AM) 98.4 DegF (04/21/16 8:22 AM) Temperature Oral [96.4-99.1 DegF] 125/82 mmHg (04/21/16 1:00 PM) 129/82 mmHg (04/21/16 8:22 AM) Blood Pressure [90-140/60-90 mmHg] 120 mmHg (04/21/16 11:51 AM) Systolic Blood Pressure [90-140 mmHg] 70 mmHg 1 (04/21/16 11:51 AM) Diastolic Blood Pressure [60-90 mmHg] 16 BRMIN (04/21/16 1:00 PM) 16 BRMIN (04/21/16 11:51 AM) 16 BRMIN (04/21/16 8:22 AM) Respiratory Rate [14-20 BRMIN] 87 bpm (04/21/16 1:00 PM) 70 bpm (04/21/16 11:51 AM) 87 bpm (04/21/16 8:22 AM) Peripheral Pulse Rate [60-100 bpm] 72.727 kg (1/9/17 5:14 PM) 75.727 kg (04/07/16 5:09 PM) Weight 29.33 m2 (04/20/16 5:14 PM) 30.54 m2 (04/07/16 5:09 PM) Body Mass Index 1Result Comment: wrong pt Problem List Condition Effective Dates Status Health Status Informant Acute cystitis1, 2 07/26/13 Resolved Allergic rhinitis3 03/03/13 Active Anxiety Active depression(Confirmed ) Benign hypertension4 11/01/12 Active Bronchitis5 10/01/14 Active Carpal tunnel 01/25/13 Active syndrome6 Chronic pain 01/25/13 Active syndrome7 Right knee Active DJD(Confirmed)8 Depressive disorder9 05/19/13 Active Dysfunction of 03/28/14 Active eustachian tube10 Ifrcaux05 03/28/14 Active Edema of lower 11/01/12 Active Wjbrujb82 07/13/13 Active Foot pain14 05/19/13 Active Gastric Resolved ulcer(Confirmed) Gastritis(Confirmed) Active Gastroparesis 08/02/13 Active uxskxcjm21 Gastroparesis(Confir Resolved med) Naqgsxyvt40 10/01/14 Active H/O: Active migraine(Confirmed) Hiatal hexywj44 08/02/13 Active Udttukfahsrghf66 10/30/13 Active Impaired glucose 07/14/13 Active wanlvponu19 Low back pain20 10/01/14 Active Lumbar qawxiqrczvm26 01/25/13 Active Chronic bipolar Active disorder(Confirmed) Meralgia 10/30/13 Active vnqznoajhhvo72 Gkrrcsha97 12/07/12 Active Neck pain24 05/19/13 Active Yvofoun91 11/01/12 Active Recurrent 03/28/14 Active mcxnujsqa61 Recurrent urinary 12/01/13 Active tract sugjyadcl59 Restless legs28 11/01/12 Active Restless legs Active syndrome(Confirmed) Retention of urine29 08/29/13 Active Serum TSH level 07/14/13 Active viblmagb65 Tear of meniscus of 01/25/13 Active knee31 Urinary tract 10/30/13 Resolved infectious stshlun25, 33 Viral 03/03/13 Resolved elcudsjcxucqbus08 Vitamin D 07/14/13 Active ixsjjnvkmj76 1Data migrated from [employer] on 10/26/14. [...] Substance Reaction Severity Status NKDA Active Medications RN-Bring pt's own PRISTIQ to pharmacist for label RN-Bring pt's own PRISTIQ to pharmacist for label, Attn:RN, Drug form: MISC, Route: MISC, QSHIFT, 04/21/16 12:00:[address] [employer], Duration: 30 day, Stop date: 05/21/16 8:00:[address] [employer] Start Date: 04/21/16 Stop Date: 04/21/16 Status: Discontinued albuterol-ipratropium 2.5-0.5 mg inhalation solution 3 mL, Route: NEB, Drug Form: SOLN, Dosing Weight 75.727, kg, ONCE, STAT, Start d ate: 04/20/16 8:11:[address] [employer], Stop date: 04/20/16 8:11:[address] [employer] Notes: (Same as: Domingo) Start Date: 04/20/16 Stop Date: 04/20/16 Status: Completed ANES acetaminophen 1,000 mg, Route: PO, Drug form: TAB, ONCE, Dosing Weight 75.727, kg, PRN Pain Sc ore 1-3, Start date: 04/20/16 10:50:[address] [employer], Duration: 1 doses or times, Stop humphrey e: Limited # of times Start Date: 04/20/16 Stop Date: 04/20/16 Status: Discontinued ANES diphenhydrAMINE 12.5 mg, Route: IVP, Drug form: INJ, Q6H, Dosing Weight 75.727, kg, PRN Itching, Start date: 04/20/16 10:50:[address] [employer], Duration: 30 day, Stop date: 05/20/16 10:49: [address] [employer] Start Date: 04/20/16 Stop Date: 04/20/16 Status: Discontinued ANES esmolol 10 mg, Route: IVP, Q5Min, Dosing Weight 75.727, kg, PRN Other -See Comment, Star t date: 04/20/16 10:50:[address] [employer], Duration: 5 doses or times, Stop date: Limited # of times Start Date: 04/20/16 Stop Date: 04/20/16 Status: Discontinued ANES flumazenil 0.2 mg, Route: IVP, PRN, Dosing Weight 75.727, kg, PRN Benzodiazepine Reversal, Initial dose, Start date: 04/20/16 10:50:[address] [employer], Duration: 30 day, Stop date: 10:49:[address] [employer] Start Date: 04/20/16 Stop Date: 04/20/16 Status: Discontinued ANES hydrALAZINE 10 mg, Route: IVP, Q20Min, Dosing Weight 75.727, kg, PRN Elevated BP, Start date : 04/20/16 10:50:[address] [employer], Duration: 2 doses or times, Stop date: Limited # of sepideh es Start Date: 04/20/16 Stop Date: 04/20/16 Status: Discontinued ANES HYDROmorphone 0.5 mg, Route: IVP, Q5Min, Dosing Weight 75.727, kg, PRN Pain Score 7-10, Start date: 04/20/16 10:50:[address] [employer], Duration: 4 doses or times, Stop date: Limited # of times Start Date: 04/20/16 Stop Date: 04/20/16 Status: Discontinued ANES labetalol 10 mg, Route: IVP, Q5Min, Dosing Weight 75.727, kg, PRN Elevated BP, Start date: 04/20/16 10:50:[address] [employer], Duration: 5 doses or times, Stop date: Limited # of times Start Date: 04/20/16 Stop Date: 04/20/16 Status: Discontinued ANES meperidine 12.5 mg, Route: IVP, Q30Min, Dosing Weight 75.727, kg, PRN Other -See Comment, F or shivering, Start date: 04/20/16 10:50:[address] [employer], Duration: 2 doses or times, Sto p date: Limited # of times Start Date: 04/20/16 Stop Date: 04/20/16 Status: Discontinued ANES naloxone 0.4 mg, Route: IVP, Q2MIN, Dosing Weight 75.727, kg, PRN Narcotic Reversal, Star t date: 04/20/16 10:50:[address] [employer], Duration: 8 doses or times, Stop date: Limited # of times Start Date: 04/20/16 Stop Date: 04/20/16 Status: Discontinued ANES ondansetron 4 mg, Route: IVP, ONCE, Dosing Weight 75.727, kg, PRN Nausea & Vomiting, Start date: 04/20/16 10:50:[address] [employer] Start Date: 04/20/16 Stop Date: 04/20/16 Status: Discontinued ANES oxyCODONE 10 mg, Route: PO, Drug form: TAB, Q4H, Dosing Weight 75.727, kg, PRN Pain Score 7-10, Start date: 04/20/16 10:50:[address] [employer], Duration: 30 day, Stop date: 05/20/16 1 0:49:[address] [employer] Start Date: 04/20/16 Stop Date: 04/20/16 Status: Discontinued ANES oxyCODONE 5 mg, Route: PO, Drug form: TAB, Q4H, Dosing Weight 75.727, kg, PRN Pain Score 4 -6, Start date: 04/20/16 10:50:[address] [employer], Duration: 30 day, Stop date: 05/20/16 10: 49:[address] [employer] Start Date: 04/20/16 Stop Date: 04/20/16 Status: Discontinued ANES promethazine 6.25 mg, Route: IVPB, ONCE, Dosing Weight 75.727, kg, PRN Nausea & Vomiting, Start date: 04/20/16 10:50:[address] [employer] Start Date: 04/20/16 Stop Date: 04/20/16 Status: Discontinued aspirin 325 mg tablet, enteric coated 325 mg=1 tab, PO, BID, # 30 tab, 0 Refill(s), called to pharmacy Start Date: 04/21/16 Status: Ordered bisacodyl 10 mg, 1 supp, Route: MO, Drug form: SUPP, Daily, Dosing Weight 75.727, kg, PRN Constipation, Start date: 04/20/16 10:29:[address] [employer], Duration: 30 day, Stop date: 10:28:[address] [employer] Notes: (Same As: Dulcolax, Bisco-Lax) Start Date: 04/20/16 Stop Date: 04/21/16 Status: Discontinued ceFAZolin 2 gm, 100 mL, Route: IVPB, Drug form: INJ, ONCALL, Dosing Weight 75.727, kg, Sta rt date: 04/20/16 8:00:[address] [employer], Duration: 12 hr, Stop date: 04/20/16 19:59:[address] [employer] Notes: Same as: Ancef Start Date: 04/20/16 Stop Date: 04/21/16 Status: Discontinued ceFAZolin (ANES) (ANES) Route: IV, Drug form: INJ, Start date: 04/20/16 8:31:[address] [employer], Stop date: 04/20/16 9:31:[address] [employer] Start Date: 04/20/16 Stop Date: 04/20/16 Status: Completed ceFAZolin (SCIP) 1 gm, 100 mL, Route: IVPB, Drug form: INJ, ABXQ6H, Dosing Weight 75.727, kg, Sta rt date: 04/20/16 14:00:[address] [employer], Duration: 3 doses or times, Stop date: 04/21/16 2:00:[address] [employer] Start Date: 04/20/16 Stop Date: 04/21/16 Status: Completed celecoxib 200 mg, Route: PO, ONCALL, Dosing Weight 75.727, kg, (for CrCl > 90 mL/min), Start date: 04/20/16 8:00:[address] [employer], Duration: 30 day, Stop date: 05/20/16 7:59:[address] [employer] Start Date: 04/20/16 Stop Date: 04/20/16 Status: Completed Cyklokapron + sodium chloride 0.9% INJ 100 mL 1,000 mg, 10 mL, Route: IVPB, ONCE, Start date: 04/20/16 16:00:[address] [employer], Stop date : 04/20/16 16:00:[address] [employer] Notes: (Same As: Cyklokapron) Start Date: 04/20/16 Stop Date: 04/20/16 Status: Completed dexamethasone 2 mg, Route: PO, ONCE, Dosing Weight 75.727, kg, Start date: 04/20/16 10:29:[address], Stop date: 04/20/16 10:29:[address] [employer] Start Date: 04/20/16 Stop Date: 04/20/16 Status: Deleted dexamethasone 4 mg, Route: PO, ONCE, Dosing Weight 75.727, kg, Start date: 04/20/16 10:29:[address], Stop date: 04/20/16 10:29:[address] [employer] Start Date: 04/20/16 Stop Date: 04/20/16 Status: Deleted dexamethasone 4 mg, Route: IV, ONCE, Dosing Weight 75.727, kg, Start date: 04/20/16 10:29:[address], Stop date: 04/20/16 10:29:[address] [employer] Start Date: 04/20/16 Stop Date: 04/20/16 Status: Deleted dexamethasone 2 mg, Route: PO, ONCE, Dosing Weight 75.727, kg, Start date: 04/20/16 10:29:[address], Stop date: 04/20/16 10:29:[address] [employer] Start Date: 04/20/16 Stop Date: 04/20/16 Status: Deleted dexamethasone 10 mg, Route: IV, ONCE, Dosing Weight 75.727, kg, Start date: 04/20/16 10:29:[address] [employer], Stop date: 04/20/16 10:29:[address] [employer] Start Date: 04/20/16 Stop Date: 04/20/16 Status: Deleted dexamethasone 4 mg, 1 tab, Route: PO, Drug form: TAB, ONCE, Start date: 04/22/16 11:30:[address] [employer], Stop date: 04/22/16 11:30:[address] [employer] Notes: Give with food.(Same As: Decadron) Start Date: 04/22/16 Stop Date: 04/21/16 Status: Canceled dexamethasone 2 mg, 0.5 mL, Route: IVP, Drug form: INJ, ONCE, Start date: 04/20/16 11:35:00 CS T, Stop date: 04/20/16 11:35:[address] [employer] Notes: Concentration: 4mg/ml Start Date: 04/20/16 Stop Date: 04/20/16 Status: Completed dexamethasone 4 mg, 1 mL, Route: IVP, Drug form: INJ, ONCE, Start date: 04/21/16 14:23:[address] [employer], Stop date: 04/21/16 14:23:[address] [employer] Notes: Concentration: 4mg/ml Start Date: 04/21/16 Stop Date: 04/21/16 Status: Completed dexamethasone 4 mg, 1 mL, Route: IVP, Drug form: INJ, ONCE, Start date: 04/21/16 11:30:[address] [employer], Stop date: 04/21/16 11:30:[address] [employer] Notes: Concentration: 4mg/ml Start Date: 04/21/16 Stop Date: 04/21/16 Status: Deleted dexamethasone 2 mg, 0.5 tab, Route: PO, Drug form: TAB, ONCE, Start date: 04/23/16 11:30:00 CS T, Stop date: 04/23/16 11:30:[address] [employer] Notes: Give with food.(Same As: Decadron) Start Date: 04/23/16 Stop Date: 04/21/16 Status: Canceled dexamethasone (ANES) Route: IV, Drug form: INJ, ONCE, Stop date: 04/20/16 9:17:[address] [employer] Start Date: 04/20/16 Stop Date: 04/20/16 Status: Completed dexamethasone 4 mg oral tablet 4 mg=1 tab, PO, ONCE, follow instructions on bottle from pharmacy, 0 Refill(s) Start Date: 04/21/16 Status: Ordered diazepam 10 mg, 2 tab, Route: PO, Drug form: TAB, Daily, Dosing Weight 72.727, kg, Priori ty: STAT, Start date: 04/21/16 10:51:[address] [employer], Duration: 30 day, Stop date: 9:00:[address] [employer] Notes: (Same as: Valium) Start Date: 04/21/16 Stop Date: 04/21/16 Status: Discontinued diazepam 10 mg oral tablet 10 mg=1 tab, PO, Daily, 0 Refill(s) Start Date: 04/07/16 Status: Ordered Dilaudid 0.5 mg, 0.5 mL, Route: IV, Drug form: INJ, Q3H, Dosing Weight 75.727, kg, PRN Ot her -See Comment, Start date: 04/20/16 10:29:[address] [employer], Duration: 30 day, Stop date : 05/20/16 10:28:[address] [employer] Start Date: 04/20/16 Stop Date: 04/21/16 Status: Discontinued Dilaudid 0.2 mg, 0.2 mL, Route: IV, Drug form: INJ, Q3H, Dosing Weight 75.727, kg, PRN Ot her -See Comment, Start date: 04/20/16 10:29:[address] [employer], Duration: 30 day, Stop date : 05/20/16 10:28:[address] [employer] Start Date: 04/20/16 Stop Date: 04/21/16 Status: Discontinued diphenhydrAMINE 12.5 mg, 0.5 tab, Route: PO, Drug form: TAB, Q6H, Dosing Weight 75.727, kg, PRN Itching, Start date: 04/20/16 10:29:[address] [employer], Duration: 30 day, Stop date: 7 10:28:[address] [employer] Start Date: 04/20/16 Stop Date: 04/21/16 Status: Discontinued docusate 100 mg, 1 cap, Route: PO, Drug form: CAP, BID, Dosing Weight 75.727, kg, Start d ate: 04/20/16 17:00:[address] [employer], Duration: 30 day, Stop date: 05/20/16 9:00:[address] [employer] Notes: (Same as: Colace) (Do Not Crush) Start Date: 04/20/16 Stop Date: 04/21/16 Status: Discontinued enoxaparin 40 mg, 0.4 mL, Route: SUB-Q, Drug form: INJ, Daily, Dosing Weight 75.727, kg, St art date: 04/21/16 9:35:[address] [employer], Duration: 30 day, Stop date: 05/20/16 9:35:00 CS T Notes: (Same as: Lovenox) Start Date: 04/21/16 Stop Date: 04/21/16 Status: Discontinued ePHEDrine (ANES) Route: IV, Drug form: INJ, ONCE, Stop date: 04/20/16 9:17:[address] [employer] Start Date: 04/20/16 Stop Date: 04/20/16 Status: Completed famotidine (ANES) Route: IV, Drug form: INJ, ONCE, Stop date: 04/20/16 9:17:[address] [employer] Start Date: 04/20/16 Stop Date: 04/20/16 Status: Completed fentaNYL (ANES) Route: IV, Drug form: INJ, ONCE, Stop date: 04/20/16 9:12:[address] [employer] Start Date: 04/20/16 Stop Date: 04/20/16 Status: Completed hydromorphone (ANES) Route: IV, Drug form: INJ, ONCE, Stop date: 04/20/16 9:17:[address] [employer] Start Date: 04/20/16 Stop Date: 04/20/16 Status: Completed ketOROLAC 15 mg, 1 mL, Route: IV, Drug form: INJ, Q8H, Dosing Weight 75.727, kg, Start humphrey e: 04/20/16 16:00:[address] [employer], Duration: 2 day, Stop date: 04/22/16 8:00:[address] [employer] Notes: (Same as:Toradol) IV bolus must be given >15 seconds. Give IM administration slowly and deeply into the muscle. Not for use > 4 days. Start Date: 04/20/16 Stop Date: 04/21/16 Status: Discontinued Lactated Ringers 1,000 mL 1,000 mL, Rate: 25 ml/hr, Infuse over: 40 hr, Route: IV, Dosing Weight 75.727 kg , Total Volume: 1,000, Start date: 04/20/16 8:11:[address] [employer], Duration: 1 day, Stop d ate: 04/21/16 8:10:[address] [employer] Start Date: 04/20/16 Stop Date: 04/21/16 Status: Completed Lactated Ringers Injection IV 1000 mL 1,000 mL, Rate: 125 ml/hr, Infuse over: 8 hr, Route: IV, Dosing Weight 75.727 kg , Total Volume: 1,000, Start date: 04/20/16 10:50:[address] [employer], Duration: 30 day, Stop date: 05/20/16 10:49:[address] [employer] Start Date: 04/20/16 Stop Date: 04/20/16 Status: Discontinued lamoTRIgine 100 mg oral tablet 100 mg, 1 tab, Route: PO, Drug form: TAB, BID, Dosing Weight 72.727, kg, Start d ate: 04/21/16 20:00:[address] [employer], Duration: 30 day, Stop date: 05/21/16 9:00:[address] [employer] Notes: (Same as:LaMICtal) Start Date: 04/21/16 Stop Date: 04/21/16 Status: Canceled lamoTRIgine 100 mg oral tablet 100 mg=1 tab, PO, BID, # 60 tab, 0 Refill(s) Start Date: 04/07/16 Status: Ordered lidocaine (ANES) Route: IV, Drug form: INJ, ONCE, Stop date: 04/20/16 9:12:[address] [employer] Start Date: 04/20/16 Stop Date: 04/20/16 Status: Completed LR 1000 mL INJ (ANES) Route: IV, Total Volume: 1,000, Start date: 04/20/16 8:22:[address] [employer], Stop date: 12/27 9:22:[address] [employer] Start Date: 04/20/16 Stop Date: 04/20/16 Status: Completed midazolam (ANES) Route: IV, Drug form: SOLN, ONCE, Stop date: 04/20/16 9:12:[address] [employer] Start Date: 04/20/16 Stop Date: 04/20/16 Status: Completed naloxone 0.1 mg, 0.25 mL, Route: IVP, Drug form: INJ, Q2MIN, Dosing Weight 75.727, kg, MO N Narcotic Reversal, Start date: 04/20/16 10:50:[address] [employer], Duration: 8 doses or sepideh es, Stop date: Limited # of times Notes: Same as Narcan Start Date: 04/20/16 Stop Date: 04/21/16 Status: Discontinued [place] 10/325 oral tablet 1 tab, Route: PO, Drug Form: TAB, Dosing Weight 75.727, kg, Q3H, PRN Pain Score 4-6, Start date: 04/20/16 10:29:[address] [employer], Duration: 30 day, Stop date: 05/20/16 10 :28:[address] [employer] Notes: Do not exceed 4gm/day of acetaminophen. (Same as: [place] 325/10) Start Date: 04/20/16 Stop Date: 04/21/16 Status: Discontinued [place] 5/325 oral tablet 1 tab, Route: PO, Drug Form: TAB, Dosing Weight 75.727, kg, Q3H, PRN Pain Score 1-3, Start date: 04/20/16 10:29:[address] [employer], Duration: 30 day, Stop date: 05/20/16 10 :28:[address] [employer] Notes: (Same as: [place] 325/5) Do not exceed 4gm/day of acetaminophen. Start Date: 04/20/16 Stop Date: 04/21/16 Status: Discontinued ondansetron (ANES) Route: IV, Drug form: INJ, ONCE, Stop date: 04/20/16 10:27:[address] [employer] Start Date: 04/20/16 Stop Date: 04/20/16 Status: Completed oxyCODONE 5 mg oral tablet 5 mg=1 tab, PO, Q3H, PRN Pain Score 7-10, or 2 tabs every 4-6 hrs,, 0 Refill(s) Start Date: 04/21/16 Status: Ordered oxyCONTIN 10 mg, Route: PO, Drug form: ERTAB, ONCALL, Dosing Weight 75.727, kg, Start date : 04/20/16 8:00:[address] [employer], Duration: 30 day, Stop date: 05/20/16 7:59:[address] [employer] Start Date: 04/20/16 Stop Date: 04/20/16 Status: Completed Pepcid 20 mg, 1 tab, Route: PO, Drug form: TAB, BID, Start date: 04/21/16 17:00:[address] [employer], Duration: 30 day, Stop date: 05/21/16 9:00:[address] [employer] Notes: (Same as: Pepcid) Start Date: 04/21/16 Stop Date: 04/21/16 Status: Discontinued Percocet 10/325 oral tablet 1 tab, Route: PO, Drug Form: TAB, Dosing Weight 75.727, kg, Q3H, PRN Pain Score 7-10, Start date: 04/20/16 10:29:[address] [employer], Duration: 30 day, Stop date: 05/20/16 1 0:28:[address] [employer] Start Date: 04/20/16 Stop Date: 04/20/16 Status: Deleted Percocet 10/325 oral tablet 1 tab, PO, Q6H, # 90 tab, 0 Refill(s), given to patient Start Date: 04/21/16 Stop Date: 04/22/16 Status: Completed Pristiq 100 mg oral tablet, extended release 100 mg, 1 tab, Route: PO, Drug form: ERTAB, Daily, Dosing Weight 72.727, kg, Sta rt date: 04/22/16 9:00:[address] [employer], Duration: 30 day, Stop date: 05/21/16 9:00:[address] [employer] Start Date: 04/22/16 Stop Date: 04/21/16 Status: Canceled propofol (ANES) Route: IV, Drug form: INJ, ONCE, Stop date: 04/20/16 9:12:[address] [employer] Start Date: 04/20/16 Stop Date: 04/20/16 Status: Completed ranitidine 150 mg oral tablet 1 tab, Route: PO, Drug form: TAB, BID, Dosing Weight 72.727, kg, Start date: 01/26 17:00:[address] [employer], Duration: 30 day, Stop date: 05/21/16 9:00:[address] [employer] Start Date: 04/21/16 Stop Date: 04/21/16 Status: Deleted BETTY Pericapsular INJ 100 mL, Route: InFILtration(local), Drug Form: INJ, Dosing Weight 75.727, kg, [employer], Start date: 04/20/16 8:00:[address] [employer], Duration: 12 hr, Stop date: 04/20/16 19: 59:[address] [employer] Notes: NOT FOR IV useRopivacaine 5 mg/mL (49.25 mL) Epinephrine 1 mg/mL (0.5 mL) Clonidine 0.1 mg/mL (0.8 mL) Ketorolac 30 mg/mL (1 mL) Normal Saline 48 .45 mL Start Date: 04/20/16 Stop Date: 04/21/16 Status: Discontinued rocuronium (ANES) Route: IV, Drug form: INJ, ONCE, Stop date: 04/20/16 9:12:[address] [employer] Start Date: 04/20/16 Stop Date: 04/20/16 Status: Completed rOPINIRole 4 mg, 2 tab, Route: PO, Drug form: TAB, Bedtime, Dosing Weight 72.727, kg, Start date: 04/21/16 21:00:[address] [employer], Duration: 30 day, Stop date: 05/20/16 21:00:[address] [employer] Notes: (Same as: Requip) Start Date: 04/21/16 Stop Date: 04/21/16 Status: Canceled Roxicodone 10 mg, 2 tab, Route: PO, Drug form: TAB, Q3H, PRN Pain Score 7-10, Start date: 0 04/20/16 11:27:[address] [employer], Duration: 30 day, Stop date: 05/20/16 11:26:[address] [employer] Notes: (Same as: Roxicodone) Start Date: 04/20/16 Stop Date: 04/21/16 Status: Discontinued Saline Flush 0.9% 10 ml, Route: IVP, Drug Form: INJ, Dosing Weight 75.727, kg, Q12H, Start date: 0 04/21/16 21:00:[address] [employer], Duration: 30 day, Stop date: 05/21/16 9:00:[address] [employer] Notes: preservative free. Start Date: 04/21/16 Stop Date: 04/21/16 Status: Canceled Saline Flush 0.9% 10 ml, Route: IVP, Drug Form: INJ, Dosing Weight 75.727, kg, PRN, PRN Line Flush , Start date: 04/21/16 10:29:[address] [employer], Duration: 30 day, Stop date: 05/21/16 10:28 :[address] [employer] Notes: preservative free. Start Date: 04/21/16 Stop Date: 04/21/16 Status: Discontinued sodium chloride 0.45% 1000 ml INJ 1,000 mL 1,000 mL, Rate: 75 ml/hr, Infuse over: 13.3 hr, Route: IV, Dosing Weight 75.727 kg, Total Volume: 1,000, Start date: 04/20/16 10:29:[address] [employer], Duration: 30 day, St op date: 05/20/16 10:28:[address] [employer] Start Date: 04/20/16 Stop Date: 04/21/16 Status: Discontinued sodium chloride 0.9% 500 ml INJ 500 mL 500 mL, Rate: 25 ml/hr, Infuse over: 20 hr, Route: IV, Dosing Weight 75.727 kg, Total Volume: 500, Start date: 04/20/16 8:11:[address] [employer], Duration: 1 day, Stop date: 04/21/16 8:10:[address] [employer] Start Date: 04/20/16 Stop Date: 04/21/16 Status: Completed Sodium Chloride 0.9% IV 500 mL 500 mL, Rate: 125 ml/hr, Infuse over: 4 hr, Route: IV, Dosing Weight 75.727 kg, Total Volume: 500, Start date: 04/20/16 10:50:[address] [employer], Duration: 30 day, Stop humphrey e: 05/20/16 10:49:[address] [employer] Start Date: 04/20/16 Stop Date: 04/20/16 Status: Discontinued Topamax 150 mg, 1.5 tab, Route: PO, Drug form: TAB, Daily, Dosing Weight 72.727, kg, Sta rt date: 04/22/16 9:00:[address] [employer], Duration: 30 day, Stop date: 05/21/16 9:00:[address] [employer] Notes: (Same As: Topamax)"Do Not Crush" Start Date: 04/22/16 Stop Date: 04/21/16 Status: Canceled Topamax 150 mg, PO, Daily, 0 Refill(s) Start Date: 04/07/16 Status: Ordered tranexamic acid 1,000 mg, Route: IV, ONCE, Dosing Weight 75.727, kg, Start date: 04/20/16 10:29: [address] [employer], Stop date: 04/20/16 10:29:[address] [employer] Start Date: 04/20/16 Stop Date: 04/20/16 Status: Deleted tranexamic acid (ANES) (ANES) Route: IV, Drug form: INJ, Start date: 04/20/16 9:56:[address] [employer], Stop date: 04/20/16 10:56:[address] [employer] Start Date: 04/20/16 Stop Date: 04/20/16 Status: Completed tranexamic acid + sodium chloride 0.9% INJ 100 mL 1,000 mg, 10 mL, Route: IV, ONCALL, Dosing Weight 75.727, kg, Start date: 8:00:[address] [employer], Duration: 12 hr, Stop date: 04/20/16 19:59:[address] [employer] Notes: (Same As: Cyklokapron) Start Date: 04/20/16 Stop Date: 04/21/16 Status: Discontinued Tylenol 1,000 mg, Route: PO, ONCALL, Dosing Weight 75.727, kg, Start date: 04/20/16 8:00 :[address] [employer], Duration: 30 day, Stop date: 05/20/16 7:59:[address] [employer] Start Date: 04/20/16 Stop Date: 04/20/16 Status: Completed Tylenol 325 mg, 1 tab, Route: PO, Drug form: TAB, Q3H, PRN Pain Score 7-10, Start date: 04/20/16 11:26:[address] [employer], Duration: 30 day, Stop date: 05/20/16 11:25:[address] [employer] Notes: Do not exceed 4 gm/day. (Same as: Tylenol) Start Date: 04/20/16 Stop Date: 04/21/16 Status: Discontinued vancomycin (ANES) (ANES) Route: IV, Drug form: INJ, Start date: 04/20/16 8:31:[address] [employer], Stop date: 04/20/16 9:31:[address] [employer] Start Date: 04/20/16 Stop Date: 04/20/16 Status: Completed vancomycin (SCIP) + sodium chloride 0.9% INJ 250 mL 1,000 mg, Route: IVPB, [id number], Dosing Weight 75.727, kg, Time Critical Medicati on, Start date: 04/20/16 20:00:[address] [employer], Duration: 2 doses or times, Stop date: 8:00:[address] [employer], Pharmacy to adjust dose for renal function Notes: TIME CRITICAL MEDICATION(Same As: Vancocin)Infusion rate< 1000 mg: infuse over 1 [id number] - 1500 mg: infuse over 1.5 [id number] - 2000 mg: infuse over 2 hours> 2001 mg: infuse over 2.5 hours MEDICATION WASTE Product Size: 1000 mgProduct Wasted: ___ mg Start Date: 04/20/16 Stop Date: 04/21/16 Status: Completed vancomycin + sodium chloride 0.9% 250 mL INJ (for IV set) 250 mL 1,250 mg, Route: IVPB, ONCALL, Dosing Weight 75.727, kg, Start date: 04/20/16 8: 00:[address] [employer], Duration: 1 day, Stop date: 04/21/16 7:59:[address] [employer] Notes: MEDICATION WASTE Product Size: 1000 mgProduct Wasted: _750__ mg* *SEND TO 2F Start Date: 04/20/16 Stop Date: 04/21/16 Status: Discontinued Zofran 4 mg, 2 mL, Route: IVP, Drug form: INJ, Q6H, PRN Nausea & Vomiting, Start date: 04/21/16 14:00:[address] [employer], Duration: 30 day, Stop date: 05/21/16 13:59:[address] [employer] Notes: (Same as: Zofran) MEDICATION WASTE Product Size: 4 mgProduct Was susan: ___ mg Start Date: 04/21/16 Stop Date: 04/21/16 Status: Discontinued Zofran 4 mg, Route: IV, Q6H, Dosing Weight 75.727, kg, PRN Nausea, Start date: 04/20/16 10:29:[address] [employer], Duration: 30 day, Stop date: 05/20/16 10:28:[address] [employer] Start Date: 04/20/16 Stop Date: 04/20/16 Status: Deleted Zofran 4 mg, 2 mL, Route: IV, Drug form: INJ, Q8H, Dosing Weight 75.727, kg, Start date : 04/20/16 16:00:[address] [employer], Duration: 3 doses or times, Stop date: 04/21/16 8:00:[address] [employer] Notes: (Same as: Zofran) MEDICATION WASTE Product Size: 4 mgProduct Was susan: ___ mg Start Date: 04/20/16 Stop Date: 04/21/16 Status: Completed Results BLOOD BANK RESULTS Most recent to 1 2 oldest [Reference Range]: ABO/Rh A POS A POS *Unknown* *Unknown* (04/20/16 9:43 AM) (04/07/16 5:29 PM) Antibody Scrn Negative Negative (04/20/16 9:43 AM) (04/07/16 5:29 PM) ELECTROLYTES Most recent to 1 2 oldest [Reference Range]: Sodium Lvl [135-145 142 mEq/L 140 mEq/L mEq/L] (04/21/16 4:10 AM) (04/07/16 5:29 PM) Potassium Lvl 5.0 mEq/L 3.3 mEq/L [3.5-5.1 mEq/L] (04/21/16 4:10 AM) *LOW* (04/07/16 5:29 PM) Chloride Lvl [95-109 109 mEq/L 105 mEq/L mEq/L] (04/21/16 4:10 AM) (04/07/16 5:29 PM) CO2 [24-32 mEq/L] 25 mEq/L 29 mEq/L (04/21/16 4:10 AM) (04/07/16 5:29 PM) AGAP [10.0-20.0 13.0 mEq/L 9.3 mEq/L mEq/L] (04/21/16 4:10 AM) *LOW* (04/07/16 5:29 PM) CHEM PANEL Most recent to 1 2 oldest [Reference Range]: Creatinine Lvl 0.92 mg/dL 0.82 mg/dL [0.50-1.40 mg/dL] (04/21/16 4:10 AM) (04/07/16 5:29 PM) eGFR 73 mL/min/1.73m2 1 84 mL/min/1.73m2 2 *NA* *NA* (04/21/16 4:10 AM) (04/07/16 5:29 PM) BUN [7-22 mg/dL] 14 mg/dL 7 mg/dL (04/21/16 4:10 AM) (04/07/16 5:29 PM) Glucose Lvl [70-99 103 mg/dL 91 mg/dL mg/dL] *HI* (04/07/16 5:29 PM) (04/21/16 4:10 AM) Calcium Lvl 8.5 mg/dL 8.4 mg/dL [8.5-10.5 mg/dL] (04/21/16 4:10 AM) *LOW* (04/07/16 5:29 PM) 1Result Comment: The eGFR is calculated using [...] be mul tiplied by the estimated BMI. 2Result Comment: The eGFR is calculated using the [...] be mul tiplied by the estimated BMI. URINE AND STOOL Most recent to 1 2 oldest [Reference Range]: UA Turbidity [Clear] Clear (04/07/16 5:29 PM) UA Color Ltyellow *NA* (04/07/16 5:29 PM) UA pH [5.0-8.0] 5.0 (04/07/16 5:29 PM) UA Spec Grav 1.010 [<=1.030] (04/07/16 5:29 PM) UA Glucose [Negative Negative mg/dL mg/dL] *NA* (04/07/16 5:29 PM) UA Blood [Negative] Negative (04/07/16 5:29 PM) UA Ketones [Negative Negative mg/dL mg/dL] *NA* (04/07/16 5:29 PM) UA Protein [Negative Negative mg/dL mg/dL] (04/07/16 5:29 PM) UA Urobilinogen <=1.0 mg/dL [0.1-1.0 mg/dL] *NA* (04/07/16 5:29 PM) UA Bili [Negative] Negative *NA* (04/07/16 5:29 PM) UA Leuk Est Negative [Negative] (04/07/16 5:29 PM) UA Nitrite Negative [Negative] (04/07/16 5:29 PM) UA WBC [0-5 /HPF] 1 /HPF (04/07/16 5:29 PM) UA RBC [0-2 /HPF] <1 /HPF (04/07/16 5:29 PM) UA Sq Epi [Few /LPF] Occasional /LPF *NA* (04/07/16 5:29 PM) HEMATOLOGY Most recent to 1 2 oldest [Reference Range]: WBC [3.7-10.4 K/CMM] 15.4 K/CMM 8.0 K/CMM *HI* (04/07/16 5:29 PM) (04/21/16 4:10 AM) RBC [4.20-5.40 4.30 M/CMM 4.66 M/CMM M/CMM] (04/21/16 4:10 AM) (04/07/16 5:29 PM) Hgb [12.0-16.0 g/dL] 12.9 g/dL 14.0 g/dL (04/21/16 4:10 AM) (04/07/16 5:29 PM) Hct [36.0-48.0 %] 39.9 % 42.7 % (04/21/16 4:10 AM) (04/07/16 5:29 PM) MCV [80.0-98.0 fL] 92.7 fL 91.8 fL (04/21/16 4:10 AM) (04/07/16 5:29 PM) MCH [27.0-31.0 pg] 29.9 pg 30.0 pg (04/21/16 4:10 AM) (04/07/16 5:29 PM) MCHC [32.0-36.0 32.3 g/dL 32.7 g/dL g/dL] (04/21/16 4:10 AM) (04/07/16 5:29 PM) RDW [11.5-14.5 %] 13.5 % 13.3 % (04/21/16 4:10 AM) (04/07/16 5:29 PM) Platelet [133-450 297 K/CMM 351 K/CMM K/CMM] (04/21/16 4:10 AM) (04/07/16 5:29 PM) MPV [7.4-10.4 fL] 7.0 fL 7.4 fL *LOW* (04/07/16 5:29 PM) (04/21/16 4:10 AM) Segs [45.0-75.0 %] 81.7 % 51.1 % *HI* (04/07/16 5:29 PM) (04/21/16 4:10 AM) Lymphocytes 12.6 % 39.1 % [20.0-40.0 %] *LOW* (04/07/16 5:29 PM) (04/21/16 4:10 AM) Monocytes [2.0-12.0 5.4 % 5.6 % %] (04/21/16 4:10 AM) (04/07/16 5:29 PM) Eosinophils [0.0-4.0 0.1 % 3.8 % %] (04/21/16 4:10 AM) (04/07/16 5:29 PM) Basophils [0.0-1.0 0.2 % 0.4 % %] (04/21/16 4:10 AM) (04/07/16 5:29 PM) Segs-Bands # 12.5 K/CMM 4.1 K/CMM [1.5-8.1 K/CMM] *HI* (04/07/16 5:29 PM) (04/21/16 4:10 AM) Lymphocytes # 1.9 K/CMM 3.1 K/CMM [1.0-5.5 K/CMM] (04/21/16 4:10 AM) (04/07/16 5:29 PM) Monocytes # [0.0-0.8 0.8 K/CMM 0.4 K/CMM K/CMM] (04/21/16 4:10 AM) (04/07/16 5:29 PM) Eosinophils # 0.3 K/CMM [0.0-0.5 K/CMM] (04/07/16 5:29 PM) PT [12.0-14.7 12.7 seconds seconds] (04/07/16 5:29 PM) INR [0.85-1.17] 0.93 (04/07/16 5:29 PM) PTT [22.9-35.8 29.3 seconds seconds] (04/07/16 5:29 PM) BACTERIAL - SEROLOGY Most recent to 1 2 oldest [Reference Range]: MRSA by PCR Negative (04/07/16 5:29 PM) Immunizations Given and Recorded Vaccine Date Status Refusal Reason Hx influenza vaccine-unspecified1 02/07/14 Given influenza virus vaccine, inactivated 02/18/16 Given influenza virus vaccine, inactivated 01/02/15 Given pneumococcal 23-valent vaccine 02/12/15 Given 1Result Comment: fluzone (quadrivalent) no preservative (>3 yrs.) [[id number]]. Migrated from [employer] ; Data migrated from [employer] on 05/14/2015. Procedures Procedure Date Related Diagnosis Body Site Appendectomy Arthroscopy of knee Carpal tunnel release Esophagogastroduodenoscopy Social History Social History Type Response Alcohol Never Smoking Status Never smoker; Previous treatment: None; Exposure to Tobacco Smoke None; Cigarette Smoking Last 365 Days No; Reg Smoking Cessation Counseling No Assessment and Plan Extracted from: Title: Clinical Document Author: Avery Quach MD Date: 04/21/16 TKA Operative Note Date: 04/20/2016 Location: [facility] Attending: Avery Quach MD Pre-op dx: Right knee osteoarthritis Post-op dx: Right knee osteoarthritis Procedure: Right total knee arthroplasty Anesthesiologist: Dr. Bentley Pedraza Anesthesia: General, Dilaudid Spinal Credit Checker: SERGIO Perez T-time: 91 min EBL: minimal UOP: no estrada IVF: see anesthesia ntoe Transfusion: none required Implants: [employer] Femur: 3N, Oxinium, Legion, CR Tibia: 2, Pricila 2 Polyethylene: 9 mm, high flex, xlink Patella: 29 mm Cement: [place] Simplex Abx Cement, 2 packs Resections: Femur: alignment: 5 deg, valguis level: primary Tibia: slope: 4 degree Level: 2 mm, medial Clinical Indications: Patient is a 50 yo female with a diagnosis of knee osteoarthritis status post an extensive conservative medical management program including physical therapy with home exercise program, injections, and anti-inflammatories. Patient has exhausted all non-operative management options but has persistent pain and disability from the arthritis. X-rays demonstrate end stage joint space narrowing with bone on bone articulation involving the medial and patellofemoral compartments of the knee. Intraoperative evaluation showed complete destruction of the cartilage surfaces in the medial and patellofemoral compartments of the knee. Patient understands the risks, benefits, rational, and rehabilitation process inherent with a total knee arthroplasty. Patient expressed understanding that risks include but not limited to bleeding, pain, infection, damage to nearby structures: vessels, tendons, nerves and ligaments, hardware failure, loosening, fracture, need for revision surgery, blood clots in the legs and lungs, stroke, heart attack, and . The patient agreed and gave consent to surgery as indicated. Patient also understands the risks and benefits of blood transfusions. Risks including possible transmission of virus or bacteria, and transfusion reactions. Patient understood these risks and gave consent for transfusion as indicated. Procedure Note: Positioning: Patient brought into the OR and placed supine on the OR table. After successful an anesthetic was applied, a estrada catheter was placed. The Right lower extremity was then prepped and draped in the standard fashion with a non-sterile tourniquet on the proximal thigh. A surgical time-out was completed, antibiotics, surgical site, and allergies were confirmed. The operative extremity was then exsanguinated with the esmarch and the tourniquet was inflated. Approach: An anterior incision was centered over the knee with a 10 blade scalpel, and dissection was taken down to the retinacular layer. A medial parapatellar arthrotomy was completed in the standard fashion. We then resected the anterior distal femur synovium, infrapatellar fat pad, anterior horn of the lateral meniscus, and anterior cruciate ligament. A medial proximal tibia release was completed in the standard fashion. The patella was everted, the patella resection was completed in the standard fashion at the level of the lateral facet. The patella was sized then drilled in the standard fashion. Femur: The intramedullary canal of the femur and tibia was accessed with drill and Charnley awl. A distal femoral cutting block was placed with the intramedullary guide and the distal femoral resection was completed with the oscillating saw. The femur was sized and the corresponding 4 in 1 cutting block was placed. The anterior, posterior, and chamfer resections were completed. The bone cuts were refined with rongeur and osteotomes, Tibia: The tibia was subluxed anteriorly and the posterior cruciate ligament was partially released. Retractors were placed to protect the collateral ligaments. The intramedullary cutting block was placed and stabilized. The proximal tibial resection was completed with the oscillating saw and refined with tibia rasp. The tibia was sized then broached in the standard fashion. The posterior compartment was accessed. We resected the menisci, posterior and notch osteophytes. Trialing/Balancing: The knee was trialed with a 9 mm mm insert. The construct was able to achieve full extension, 135 degrees of flexion, with excellent patellar tracking, The construct was stable to varus and valgus stress with physiologic laxity Cementing: The bone surfaces were irrigated with 1 liter of normal saline fluid then dried. The posterior lateral corner was coagulated and bone grafted the tibia canal. The bone cement was applied under finger pressurization. The tibia component was impacted, excess bone cement was removed circumferenecially. The femur component was then impacted and excess bone cement was removed in flexion and extension. Lastly, the patella was everted and cemented into place. The liner was the implacted in the standard fashion. The entire operative field was irrigated with 2 liters of normal saline. Closure: The arthrotomy was closed with #1 ethibond sutures. Scarpas fascia was closed with inverted O vicryls. The skin was closed with inverted subcutaneous 2-O vicryls and a running 4-O monocryl. The wound was dressed with dermabond, adaptic, 4x4 s, abd pads, and an moose wrap. Tourniquet was released after the dressing was placed and tranexemic acid was given during the closure. The entire procedure was completed with the attending surgeon. Laminar air flow body exhaust suits were worn for the entire procedure. A retail assistant was utilized for the entire procedure. The retail assistant aided in positioning, retraction, implant sizing/implementation, and closure. The retail assistant decreased surgical time and therefore peace-operative morbidity. Post-op Dispo: Patient will be admitted to the floor, receive 24 hours of intravenous antibiotics, and DVT prophylaxis. The patient can weight bear as tolerated with no range of motion requirements. Extracted from: Title: Clinical Document Author: Avery Quach MD Date: 04/21/16 Admit Date: 04/20/2016 Discharge Date: 04/21/2016 Reason for Hospitalization: s/p Right TKA Patient was admitted to the floor s/p Right TKA. Pt tolerated the surgery well and vital signs were stable in the post operative period. Pt recieved 24 hr abx prohlyaxis, DVT prophlaxis was started within 23 hrs of surgery, and was cleared for d/c home by PT on POD# 1. Discharge Instructions WBAT no ROM restrictions f/u Dr. Avery Quach on 05/13/2016 Discharge Medications ECSA 325 mg PO BID for 1 month Percocet 10/325 1-2 tab PO Q4-6Hr PRN Pain Continue all home medcations Contact Dr[facility] if: Fever > 101.5 Increasing pain Redness along incision purulent drainage Extracted from: Title: Clinical Document Author: Avery Quach MD Date: 04/21/16 Progress Daily [facility] Completed: Apr, 12:14 by Avery Quach MD RM: 239 - 1P, SE [id number] (: 1965) F Attending: Avery Quach MDPhone: Service: Orthopedic Reason for Admission: UNK Working DRG: Major joint replacement or reattachment of lower extremity w/o RETIREMENT Code status: None Specified=FULL CODECurrent diet: Isolation: None Documented Allergies: NKDA SUBJECTIVE no complaints, minimal pain expressed concerns regarding new onset vaginal bleeding prior to any anticoaguation administration. Pt refused lovenox this AM. 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 regarding new onset vaginal bleeding 24hr Labs 04/21 0410 Glucose Qxp798 H BUN14 Creatinine Lvl0.92 Sodium Iau996 Potassium Lvl5.0 Chloride Sup840 CO225 AGAP13.0 Calcium Lvl8.5 eGFR73 WBC15.4 H RBC4.30 Hgb12.9 Hct39.9 MCV92.7 MCH29.9 MCHC32.3 RDW13.5 Theygvfg402 MPV7.0 L Segs81.7 H Monocytes5.4 Ypwawglavkq79.6 L Eosinophils0.1 Basophils0.2 Segs-Bands #12.5 H Lymphocytes #1.9 Monocytes #0.8 VitalsTmp(F)GtamnSGRXQpK1FGD4 04/21 11:[id number]/200727--- 04/21 08:2298.908634/507491--- 04/21 04:1597.892521/115515--- 04/21 00:1598.548357/753277--- 04/20 20:1598.290579/158686--- 24 Hr Tmax: 98.6F (37.00c) at 04/20 20:15Vital Signs are the last 5 in the past 48 hours. DateWt(kg)Wt(lb)Ht(cm)Ht(in)Method 04/20 72.73 160.63886.48 62.00Measured 04/07 (initial) 75.73 166.60Measured 57.48 62.00Stated I&ORecordInOutBal 04/1023hr Tot 253 0 253 04/923hr Tot 1953 50 1903 Medications (49) Active Scheduled Meds (11): 04/22/16 desvenlafaxine (Pristiq 100 mg oral tablet, extended release) 100 mg PO Daily 04/21/16 diazepam 10 mg PO Daily 04/20/16 docusate 100 mg PO BID 04/21/16 enoxaparin 40 mg SUB-Q Daily 04/21/16 famotidine (Pepcid) 20 mg PO BID 04/20/16 ketOROLAC 15 mg IV Q8H 04/21/16 lamoTRIgine (lamoTRIgine 100 mg oral tablet) 100 mg PO BID 04/21/16 non-formulary (RN-Bring pt's own PRISTIQ to pharmacist for label) MISC QSHIFT 04/21/16 rOPINIRole 4 mg PO Bedtime 04/21/16 sodium chloride (Saline Flush 0.9%) 10 ml IVP Q12H 04/22/16 topiramate (Topamax) 150 mg PO Daily Unscheduled Meds (3): 04/20/16 ceFAZolin 2 gm IVPB ONCALL 200 ml/hr 04/20/16 ropivacaine (BETTY Pericapsular INJ) 100 mL InFILtration(local) ONCALL 04/20/16 tranexamic acid + sodium chloride 0.9% INJ 100 mL 1,000 mg IV ONCALL 220 ml/hr PRN Meds (11): 04/20/16 acetaminophen-hydrocodone ([place] 5/325 oral tablet) 1 tab PO Q3H 04/20/16 acetaminophen-hydrocodone ([place] 10/325 oral tablet) 1 tab PO Q3H 04/20/16 acetaminophen (Tylenol) 325 mg PO Q3H 04/20/16 bisacodyl 10 mg MO Daily 04/20/16 diphenhydrAMINE 12.5 mg PO Q6H 04/20/16 hydromorphone (Dilaudid) 0.2 mg IV Q3H 04/20/16 hydromorphone (Dilaudid) 0.5 mg IV Q3H 04/20/16 naloxone 0.1 mg IVP Q2MIN 04/21/16 ondansetron (Zofran) 4 mg IVP Q6H 04/20/16 oxyCODONE (Roxicodone) 10 mg PO Q3H 04/21/16 sodium chloride (Saline Flush 0.9%) 10 ml IVP PRN One Time Meds (23): 04/20/16 (Completed) albuterol-ipratropium (albuterol-ipratropium 2.5-0.5 mg inhalation solution) 3 mL NEB ONCE 04/20/16 (Deleted) dexamethasone 10 mg IV ONCE 04/20/16 (Deleted) dexamethasone 4 mg IV ONCE 04/20/16 (Deleted) dexamethasone 4 mg PO ONCE 04/20/16 (Deleted) dexamethasone 2 mg PO ONCE 04/20/16 (Deleted) dexamethasone 2 mg PO ONCE (Completed) dexamethasone (dexamethasone (ANES)) IV ONCE 04/20/16 (Completed) dexamethasone 2 mg IVP ONCE 04/21/16 (Ordered) dexamethasone 4 mg IVP ONCE 04/22/16 (Ordered) dexamethasone 4 mg PO ONCE 04/23/16 (Ordered) dexamethasone 2 mg PO ONCE 04/24/16 (Ordered) dexamethasone 2 mg PO ONCE (Completed) ePHEDrine (ePHEDrine (ANES)) IV ONCE (Completed) famotidine (famotidine (ANES)) IV ONCE (Completed) fentaNYL (fentaNYL (ANES)) IV ONCE (Completed) hydromorphone (hydromorphone (ANES)) IV ONCE (Completed) lidocaine (lidocaine (ANES)) IV ONCE (Completed) midazolam (midazolam (ANES)) IV ONCE (Completed) ondansetron (ondansetron (ANES)) IV ONCE (Completed) propofol (propofol (ANES)) IV ONCE (Completed) rocuronium (rocuronium (ANES)) IV ONCE 04/20/16 (Completed) tranexamic acid + sodium chloride 0.9% INJ 100 mL (Cyklokapron + sodium chloride 0.9% INJ 100 mL) 1,000 mg IVPB ONCE 220 ml/hr 04/20/16 (Deleted) tranexamic acid 1,000 mg IV ONCE Continuous Infusions (1): 04/20/16 sodium chloride 0.45% 1000 ml INJ 1,000 mL 1,000 mL 75 ml/hr Extracted from: Title: Clinical Document Author: Avery Quach MD Date: 04/19/16 CHIEF COMPLAINT: Right hip pain. HISTORY OF PRESENT ILLNESS: The patient is a 50-year-old female with right knee pain. The patient complains of 3-year history of progressive anterior medial knee pain. It is 6/10 in severity, increasing to 8/10 severity. The patient has some pain that is related to overuse, aggravated by standing, rising from chair, twisting and pivoting, squatting walking, and prolonged ambulation. The patient's pain is alleviated by rest. The patient has undergone home exercise program and physical therapy, Celebrex, anti-inflammatories, steroid injections, viscosupplementation injections, as well as right knee arthroscopic surgery. PAST MEDICAL HISTORY: Significant for arthritis, low back pain, depression, and hernia. PAST SURGICAL HISTORY: Significant for right knee arthroscopy, appendectomy, and shoulder surgery. CURRENT MEDICATIONS: Diazepam and Pristiq. SOCIAL HISTORY: The patient denies smoking, alcohol, and drug use. FAMILY HISTORY: Positive for diabetes, hypertension, arthritis. REVIEW OF SYSTEMS: A 12-system review of systems questionnaire was completed and reviewed by myself. Systems evaluated include general, skin, HEENT, psychiatric, pulmonary, genitourinary, gastrointestinal, musculoskeletal, lymphatics, endocrine, cardiovascular, neurologic. Please see for further details. PHYSICAL EXAMINATION: GENERAL: The patient has mildly obese body habitus, in no acute distress. The patient is 63 inches height, weight 162 pounds. The patient's BMI is 29.05. PSYCHIATRIC: Alert and oriented x3. Demonstrates proper mood and affect. ABDOMEN: Soft and nondistended. Normal skin. No other soft tissue swelling, ecchymosis, or bruising. CARDIOVASCULAR: 1+ distal radial pulse bilaterally. NEURO: A 5/5 motion in bilateral hips. Positive GSTA, FHL, and EHL. Cap refill is brisk. Light touch to L2 through S1 dermatomal distribution. 1+ DTRs bilaterally. EXTREMITY The patient's right knee demonstrates pain on passive range of motion. Palpable crepitus. Antalgic gait. Trace varus-valgus laxity. Trace anterior-posterior laxity, 90 degrees of flexion. X-RAYS: The patient's bilateral standing APs of the knee demonstrates raxa-np-okuo articulation in the medial compartment with periarticular osteophytes and decreased joint space in the patellofemoral joint. X-rays, patient's long alignment film, the patient has varus malalignment on the right knee. ASSESSMENT: The patient with right knee osteoarthritis, ICD-10 M17.11. MEDICAL DECISION MAKING AND MANAGEMENT: The patient is a 50-year-old female. The patient has 8/10 severity of pain extending to the right knee aggravated by weightbearing, range of motion, progressive activity, limitation of daily activity, ambulation, going up and downstairs. On physical exam, the patient has pain with passive range of motion, palpable crepitus, antalgic gait. Range of motion is 0 to 120 degrees. The patient's x-rays demonstrate varus malalignment with end-stage [id number]-[id number] articulation in the medial compartment, and periarticular osteophytes in the medial and anterior compartment Previous treatments include oral antiinflammatories, Celebrex, steroid injections, viscosupplementation, injection, home exercise and physical therapy. The patient has maximized medical management and now candidate for right total knee arthroplasty. PLAN: Right total knee arthroplasty. Date of surgery will be April 20, 2016. TXA, Toradol and steroid taper. Lovenox versus aspirin for DVT prophylaxis. The patient with [employer] instrumentation. Risks and benefits discussed. Risks of surgery including bleeding, pain, infection, damage to the neurovascular structures, hardware failure, loosening, need for revision surgery, possibility of blood clots, stroke, heart attack and . Addendum Chief Complaint is Right KNEE PAIN by Avery Quach MD on 04/19/2016 12:34
--- OUTSIDE RECORDS SUMMARY | 2018-07-20 03:57 | XMS REPORT | Summary of Care ---
Author Author [facility] Address Unknown Phone Unavailable Encounter HQ Shayy_pasquale(FIN) [id number] Date(s): 05/03/18 - 05/03/18 [facility] [id number] [place] [phone] Attending Physician: Chel Rudd MD Referring Physician: [...] Active Dysfunction of 03/28/14 Active eustachian tube10 Qiusluc76 03/28/14 Active Edema of lower 11/01/12 Active pnrwsanun46 Kxhbuxb57 07/13/13 Active Foot pain14 05/19/13 Active Gastric Resolved ulcer(Confirmed) Gastritis(Confirmed) Active Gastroparesis 08/02/13 Active sqqpdfbi41 Gastroparesis(Confir Resolved med) Uklcnzwmx28 10/01/14 Active H/O: Active migraine(Confirmed) Hiatal ogncqu88 08/02/13 Active Pdsseuonmvotpv60 10/30/13 Active Impaired glucose 07/14/13 Active fcymeqclj92 Low back pain20 10/01/14 Active Lumbar ogpyzhivyds75 01/25/13 Active Chronic bipolar Active disorder(Confirmed) Meralgia 10/30/13 Active qvttsjpaywxp49 Crlhujsc18 12/07/12 Active Neck pain24 05/19/13 Active Odwwgzu17 11/01/12 Active Recurrent 03/28/14 Active pjbcwvqoy00 Recurrent urinary 12/01/13 Active tract cftguphnk23 Restless legs28 11/01/12 Active Restless legs Active syndrome(Confirmed) Retention of urine29 08/29/13 Active Serum TSH level 07/14/13 Active caohhwzm20 Tear of meniscus of 01/25/13 Active knee31 Urinary tract 10/30/13 Resolved infectious tfcxsir76, 33 Viral 03/03/13 Resolved Vitamin D 07/14/13 Active quyiclnoha98 1Data migrated from [employer] on 10/26/14. [...] Comment: fluzone (quadrivalent) no preservative (>3 yrs.) [[id number]]. Migrated from OBS ; Data migrated from [...]
--- OUTSIDE RECORDS SUMMARY | 2018-07-20 03:57 | XMS REPORT | Summary of Care ---
Author Author [facility] [place] Organization [facility] [place] Address Unknown Phone Unavailable Encounter HQ Adal(FIN) [id number] Date(s): 03/12/15 - 03/12/15 [facility] [place] [address] [place], [place] [address] [phone] Discharge Disposition: Home Attending Physician: Nannette Amaro [...] Active Dysfunction of 03/28/14 Active eustachian tube9 Vwssdet63 03/28/14 Active Edema of lower 11/01/12 Active ypujzmowo98 Muzgrrc42 07/13/13 Active Foot pain13 05/19/13 Active Gastric Resolved ulcer(Confirmed) Gastritis(Confirmed) Active Gastroparesis(Confir Resolved med) Gastroparesis 08/02/13 Active npkguule37 Fufgtoepz74 10/01/14 Active H/O: Active migraine(Confirmed) Hiatal sllciv02 08/02/13 Active Ibthxkzocmbcxc36 10/30/13 Active Impaired glucose 07/14/13 Active jodjeuykg73 Low back pain19 10/01/14 Active Lumbar qkdfmjikxve56 01/25/13 Active Meralgia 10/30/13 Active apduozrszjol31 Jkjjhfuo00 12/07/12 Active Neck pain23 05/19/13 Active Sxxvnig37 11/01/12 Active Recurrent 03/28/14 Active huejmqjse35 Recurrent urinary 12/01/13 Active tract qazqfdsgu11 Restless legs27 11/01/12 Active Restless legs Active syndrome(Confirmed) Retention of urine28 08/29/13 Active Serum TSH level 07/14/13 Active giyzwcne72 Tear of meniscus of 01/25/13 Active knee30 Urinary tract 10/30/13 Resolved infectious vltvuuy03, 32 Viral 03/03/13 Resolved okdtofrqufmijch56 Vitamin D 07/14/13 Active afuqefuevf79 1Data migrated from [employer] on 10/26/14. [...] this section Immunizations Vaccine Date Refusal Reason influenza virus vaccine, inactivated 01/02/15 pneumococcal 23-valent vaccine 02/12/15 Procedures Procedure Date Related Diagnosis Body Site Arthroscopy of knee Carpal tunnel release Social History Social History Type Response Alcohol Never, Previous treatment: None. Smoking Status Never smoker; Previous treatment: None; Exposure to Tobacco Smoke None; Cigarette Smoking Last 365 Days No; Reg Smoking Cessation Counseling No Assessment and Plan No data available for this section
--- OUTSIDE RECORDS SUMMARY | 2018-07-20 03:58 | XMS REPORT | Summary of Care ---
Author Author [facility] Address Unknown Phone Unavailable Encounter HQ Adal(GLORIA) [id number] Date(s): 07/03/16 - 08/01/16 [facility] Discharge Disposition: Home or Self Care Attending [...] Active Dysfunction of 03/28/14 Active eustachian tube10 Zdfdbmu22 03/28/14 Active Edema of lower 11/01/12 Active cqefazwos36 Funnjnx95 07/13/13 Active Foot pain14 05/19/13 Active Gastric Resolved ulcer(Confirmed) Gastritis(Confirmed) Active Gastroparesis 08/02/13 Active jqmmtsje83 Gastroparesis(Confir Resolved med) Nbnxjdpfl01 10/01/14 Active H/O: Active migraine(Confirmed) Hiatal xinhaq96 08/02/13 Active Ysxxzvlolqglkn13 10/30/13 Active Impaired glucose 07/14/13 Active ianeabimo46 Low back pain20 10/01/14 Active Lumbar whzmbrobdia61 01/25/13 Active Chronic bipolar Active disorder(Confirmed) Meralgia 10/30/13 Active hexewcolestj12 Oszrsusm33 12/07/12 Active Neck pain24 05/19/13 Active Umrptjz22 11/01/12 Active Recurrent 03/28/14 Active noafxavnn42 Recurrent urinary 12/01/13 Active tract Restless legs28 11/01/12 Active Restless legs Active syndrome(Confirmed) Retention of urine29 08/29/13 Active Serum TSH level 07/14/13 Active rtngizwy07 Tear of meniscus of 01/25/13 Active knee31 Urinary tract 10/30/13 Resolved infectious xbbaoda09, 33 Viral 03/03/13 Resolved ukjpjwohjkagsro99 Vitamin D 07/14/13 Active jffibpjpoj59 1Data migrated from [employer] on 10/26/14. [...] Comment: fluzone (quadrivalent) no preservative (>3 yrs.) [[id number]]. Migrated from OBS ; Data migrated from [...]
--- OUTSIDE RECORDS SUMMARY | 2018-07-20 03:58 | XMS REPORT | Summary of Care ---
Author Author [facility] [place] Organization [facility] [place] Address Unknown Phone Unavailable Encounter HQ Adal(FIN) [id number] Date(s): 07/31/16 - 07/31/16 [facility] [place] [address] [place] [phone] Discharge Disposition: Home or Self Care Attending Physician: Chel Rudd MD Vital Signs No [...] Active Dysfunction of 03/28/14 Active eustachian tube10 Ajawvtc51 03/28/14 Active Edema of lower 11/01/12 Active eoftavtey98 Aokxwff24 07/13/13 Active Foot pain14 05/19/13 Active Gastric Resolved ulcer(Confirmed) Gastritis(Confirmed) Active Gastroparesis 08/02/13 Active uxdrazlt29 Gastroparesis(Confir Resolved med) Fhqawlfzf24 10/01/14 Active H/O: Active migraine(Confirmed) Hiatal podstj45 08/02/13 Active Apewjygfnklnud25 10/30/13 Active Impaired glucose 07/14/13 Active uxhejvwma02 Low back pain20 10/01/14 Active Lumbar jxurmgkygol75 01/25/13 Active Chronic bipolar Active disorder(Confirmed) Meralgia 10/30/13 Active dfzdkzavkmqu80 Jlyhajfh31 12/07/12 Active Neck pain24 05/19/13 Active Iqxpscc59 11/01/12 Active Recurrent 03/28/14 Active kfeynnaar26 Recurrent urinary 12/01/13 Active tract tequpyvzo17 Restless legs28 11/01/12 Active Restless legs Active syndrome(Confirmed) Retention of urine29 08/29/13 Active Serum TSH level 07/14/13 Active icbgmuwc32 Tear of meniscus of 01/25/13 Active knee31 Urinary tract 10/30/13 Resolved infectious bijbjat33, 33 Viral 03/03/13 Resolved zaonhmreujoadnh73 Vitamin D 07/14/13 Active xjklpmodho06 1Data migrated from [employer] on 10/26/14. [...] Comment: fluzone (quadrivalent) no preservative (>3 yrs.) [[id number]]. Migrated from OBS ; Data migrated from [...]
--- OUTSIDE RECORDS SUMMARY | 2018-07-20 03:58 | XMS REPORT | Summary of Care ---
Author Author [facility] [place] Organization [facility] [place] Address Unknown Phone Unavailable Encounter HQ Adal(FIN) [id number] Date(s): 08/06/16 - 08/06/16 [facility] [place] [address] [place] [phone] Discharge Disposition: Home or Self Care Attending Physician: Sage Kenyon MD Vital Signs No data available for this section Problem List Condition Effective Dates Status Health Status Informant Acute cystitis1, 2 07/26/13 Resolved Allergic rhinitis3 03/03/13 Active Anxiety Active depression(Confirmed ) Benign hypertension4 11/01/12 Active Bronchitis5 10/01/14 Active Carpal tunnel 01/25/13 Active syndrome6 Chronic pain 01/25/13 Active syndrome7 Right knee Active DJD(Confirmed)8 Depressive disorder9 05/19/13 Active Dysfunction of 03/28/14 Active eustachian tube10 Mmyqwwt06 03/28/14 Active Edema of lower 11/01/12 Active Hycqkvx55 07/13/13 Active Foot pain14 05/19/13 Active Gastric Resolved ulcer(Confirmed) Gastritis(Confirmed) Active Gastroparesis 08/02/13 Active fchgtiwg19 Gastroparesis(Confir Resolved med) Pxzisjhgx41 10/01/14 Active H/O: Active migraine(Confirmed) Hiatal jryynu82 08/02/13 Active Knyuvaztfanaga92 10/30/13 Active Impaired glucose 07/14/13 Active Low back pain20 10/01/14 Active Lumbar nskkijzcdka15 01/25/13 Active Chronic bipolar Active disorder(Confirmed) Meralgia 10/30/13 Active dyavgrpisont51 Gsmcjdfo46 12/07/12 Active Neck pain24 05/19/13 Active Oydahdo81 11/01/12 Active Recurrent 03/28/14 Active jgfuyzzbe88 Recurrent urinary 12/01/13 Active tract zuivuaenf52 Restless legs28 11/01/12 Active Restless legs Active syndrome(Confirmed) Retention of urine29 08/29/13 Active Serum TSH level 07/14/13 Active qlprvajm50 Tear of meniscus of 01/25/13 Active knee31 Urinary tract 10/30/13 Resolved infectious qxfdgoi93, 33 Viral 03/03/13 Resolved nlkiqtovbjmdlqn46 Vitamin D 07/14/13 Active 1Data migrated from [...] Comment: fluzone (quadrivalent) no preservative (>3 yrs.) [[id number]]. Migrated from OBS ; Data migrated from [employer] on 05/14/2015. Procedures Procedure Date Related Diagnosis [...]
--- OUTSIDE RECORDS SUMMARY | 2018-07-20 03:58 | XMS REPORT | Summary of Care ---
Author Author [facility] Address Unknown Phone Unavailable Encounter HQ Adal([place]OR[place]) [id number] Date(s): 05/25/16 - 06/23/16 [facility] Discharge Disposition: Home or [...] Active Dysfunction of 03/28/14 Active eustachian tube10 Hfavdtx53 03/28/14 Active Edema of lower 11/01/12 Active extlnvcbi12 Sqpgkja79 07/13/13 Active Foot pain14 05/19/13 Active Gastric Resolved ulcer(Confirmed) Gastritis(Confirmed) Active Gastroparesis 08/02/13 Active chbghpot30 Gastroparesis(Confir Resolved med) Lbagglead48 10/01/14 Active H/O: Active migraine(Confirmed) Hiatal lamhir84 08/02/13 Active Kjfeejhuejvnoq09 10/30/13 Active Impaired glucose 07/14/13 Active pvrifdaxt40 Low back pain20 10/01/14 Active Lumbar iqersdnaely88 01/25/13 Active Chronic bipolar Active disorder(Confirmed) Meralgia 10/30/13 Active vznejeremkuv90 Lalnamnt69 12/07/12 Active Neck pain24 05/19/13 Active Uwdaygr54 11/01/12 Active Recurrent 03/28/14 Active srwehvfil58 Recurrent urinary 12/01/13 Active tract Restless legs28 11/01/12 Active Restless legs Active syndrome(Confirmed) Retention of urine29 08/29/13 Active Serum TSH level 07/14/13 Active ahjtmclq05 Tear of meniscus of 01/25/13 Active knee31 Urinary tract 10/30/13 Resolved infectious pugahwf56, 33 Viral 03/03/13 Resolved wazcuorszvlpbdz35 Vitamin D 07/14/13 Active cugpcxhjnl63 1Data migrated from [employer] on 10/26/14. [...] Comment: fluzone (quadrivalent) no preservative (>3 yrs.) [keb392]. Migrated from OBS ; Data migrated from [...]
[2018-07-20] MEDS ORDERED: CEFTRIAXONE SOD 1 GM VIAL IM ONE (04:15)
== END 2018-07-20 04:10 | disposition home or self-care (01) ==
LOC: FSED 03:50
DX: S50.862A Insect bite (nonvenomous) of left forearm, initial encounter (principal); L03.114 Cellulitis of left upper limb; W57.XXXA Bitten or stung by nonvenomous insect and other nonvenomous arthropods, initial encounter; F17.200 Nicotine dependence, unspecified, uncomplicated
CPT/HCPCS: 99282; J0696

== ENCOUNTER 2019-02-13 13:37 | Emergency (ER) | payer MEDICARE ==
[~2019-02-13] VITALS: Ht 162.6 cm; Wt 88.5 kg
--- OUTSIDE RECORDS SUMMARY | 2019-02-13 13:39 | XMS REPORT ---
Author Author [facility] Address Unknown Phone Unavailable Care Team Providers Care Hair Stylist Name Role Phone Unavailable Unavailable Payers Payer Name Policy Type Policy Number Effective Date Expiration Date Problems This patient has no known problems. Allergies, Adverse Reactions, Alerts Allergy Name Allergy Type Status Severity Reaction(s) Onset Date Inactive Date Treating Clinician Comments No Known Allergies DA Active U 2011-11-09 00:00:00 Medications This patient has no known medications. Encounters Start Date/Time End Date/Time Encounter Type Admission Type Attending [facility] Facility Care Department Encounter ID 2018-12-02 07:36:00 2018-12-02 07:36:[address] [id number] Results Test Description Test Time Test Comments Text Results Atomic Results Result Comments GASTRIC,BIOPSY 2019-01-30 18:06:00 RUN DATE: 01/30/19 [facility] - Lab PAGE 1 RUN TIME: 1807 Specimen Inquiry RUN USER: INTERFACE PATIENT: AZUL ETIENNE LOC: [facility] U #: [id number] AGE/SX: 53/F ROOM: RE01/26/19[facility] DR: Lj Laguna : 67 BED: DIS: STATUS: [facility] TLOC: SPEC #: [id number] RECD: 01/27/19 STATUS: [facility] #: [id number] LIDA: 01/26/19-[address]: Lj Laguna MD ENTERED: 01/27/19 SP TYPE: GASTRIC BX OTHR DR: No Primary or Family PhysicianORDERED: GROSS COPIES TO: No Primary or Family Physician Lj Laguna MD [address], [address] [place] [address] PROCEDURES: GROSS (01/30/19-4457) TISSUES: 1. ANTRUM - BX 2. ESOPHAGUS, NOS - BX CLINICAL HISTORY COLLECTION DATE: 01/26/19 GASTROPARESIS, NAUSEA FINAL DIAGNOSIS Gastric antrum, biopsy: COMPATIBLE WITH MILD REACTIVE GASTROPATHY NO AREAS OF MUCOSAL EROSION/ULCERATION NO ACUTE INFLAMMATORY INFILTRATE PRESENT NEGATIVE FOR HELICOBACTER ORGANISMS NEGATIVE FOR INTESTINAL METAPLASIA NEGATIVE FOR MALIGNANCY Esophagus, cold biopsy: SQUAMOUS MUCOSA WITH ELONGATION OF SQUAMOUS PAPILLAE, INCREASED INTRAEPITHELIAL LYMPHOCYTES, FEW INTRAEPITHELIAL NEUTROPHILS AND BASAL CELL HYPERPLASIA (REFLUX ESOPHAGITIS) NO GLANDULAR EPITHELIUM PRESENT NEGATIVE FOR DYSPLASIA AND MALIGNANCY RRB/freya Lindsey [id number], [id number] CONTINUED ON NEXT PAGE RUN DATE: 01/30/19 [facility] PAGE 2 RUN TIME: 1807 Specimen Inquiry RUN USER: INTERFACE SPEC #: [id number] PATIENT: AZUL ETIENNE #[id number] (Continued) MACROSCOPIC Specimen (1) is received in formalin, labeled with the patient's name, identified as "antrum", and consists of aguilar biopsy tissue measuring 0.3 cm in aggregate, submitted as (1) for H E and giemsa stains. Specimen (2) is received in formalin, labeled with the patient's name, identified as "esophagus", and consists of light aguilar biopsy tissue measuring 0.2 cm, submitted as (2). GROSS PERFORMED AT [facility] [address] [place] [address] (p)[phone] MICROSCOPIC All of the stains, including any controls performed, stain appropriately. MICROSCOPIC PERFORMED AT [facility] [address] [place] [address] (B)[phone] PERFORMING SITE Diagnosis performed at: [facility], [address] [place] [address] Signed SIGNATURE ON FILE Ifeanyi England MD 01/30/19 1806 END OF REPORT
[2019-02-13] MEDS ORDERED: ONDANSETRON HCL INJ 2MG/ML 2ML 2 MG/ML VIAL IV ONE (14:16)
[2019-02-13] MEDS ORDERED: FAMOTIDINE 20 MG/2 ML VIAL IV ONE ×2 (14:16→14:43)
[2019-02-13] MEDS ORDERED: MORPHINE SULFATE INJ 4 MG/ML INJ 1ML IV ONE ×2 (14:30→16:15)
[2019-02-13] MEDS ORDERED: SODIUM CHLORIDE 0.9% 1000ML 1,000 ML IV SCH (14:30)
[2019-02-13] MEDS ORDERED: ONDANSETRON HCL INJ 2MG/ML 2ML 2 MG/ML VIAL ONE ×2 (14:43→16:28)
[2019-02-13] MEDS ORDERED: SODIUM CHLORIDE 0.9% 1000ML 1,000 ML ONE (14:43)
[2019-02-13] MEDS ORDERED: MORPHINE SULFATE INJ 4 MG/ML INJ 1ML ONE ×2 (14:43→16:28)
--- NOTE | 2019-02-13 16:00 | NUR ---
PT STATED SHE IS STILL HAVING AB PAIN WITH NAUSEA, DR NOTIFIED, ORDERS RECEIVED.
[2019-02-13] MEDS ORDERED: IOPAMIDOL 370 MG/ML 200 ML INFUS..BTL INJ ONE (16:02)
[2019-02-13] MEDS ORDERED: SODIUM CHLORIDE 0.9% 50ML 50 ML ONE (16:02)
[2019-02-13] MEDS ORDERED: ONDANSETRON HCL INJ 2MG/ML 2ML 2 MG/ML VIAL IV STA (16:10)
--- NOTE | 2019-02-13 16:30 | NUR ---
PT RESTING, VITAL SIGNS STABLE, PT AWARE OF POC, PT VOICES NO COMPLAINTS AT THIS TIME.
--- NOTE | 2019-02-13 16:54 | Diagnostic Imaging Report ---
EXAM: CT Abdomen and Pelvis WITH intravenous contrast INDICATION: Abdominal pain COMPARISON: None. TECHNIQUE: Abdomen and pelvis were scanned utilizing a multidetector helical scanner from the lung base to the pubic symphysis after administration of IV contrast. Coronal and sagittal reformations were obtained. Routine protocol was performed. Scan was performed during portal venous phase. IV CONTRAST: 100mL of Isovue 370 ORAL CONTRAST: Water RADIATION DOSE: Total DLP: 809.1 mGy*cm Dose modulation, iterative reconstruction, and/or weight based adjustment of the mA/kV was utilized to reduce the radiation dose to as low as reasonably achievable. FINDINGS: LOWER THORAX: Normal. HEPATOBILIARY: Mild diffuse hepatic steatosis. No focal liver lesion. No intrahepatic biliary ductal dilation. Unremarkable gallbladder. SPLEEN: No splenomegaly. PANCREAS: No focal masses or ductal dilatation. ADRENALS: No adrenal nodules. KIDNEYS/URETERS: No hydronephrosis, stones, or solid mass lesions. PELVIC ORGANS/BLADDER: Unremarkable. PERITONEUM / RETROPERITONEUM: No free air or fluid. LYMPH NODES: No lymphadenopathy. VESSELS: Minimal scattered atherosclerotic calcifications of the abdominal aorta. GI TRACT: No abnormal bowel wall thickening. No bowel obstruction. Normal appendix. BONES AND SOFT TISSUES: No acute osseous injury. No suspicious lytic or blastic lesions. Small subcutaneous fluid density structure in the anterior abdominal wall. IMPRESSION: No acute findings in the abdomen or pelvis. Mild diffuse hepatic steatosis. Signed by: Vianca Mcghee MD on 02/13/2019 4:50 PM
[2019-02-13 17:06] VITALS: BP 154/96
== END 2019-02-13 17:12 | disposition home or self-care (01) ==
LOC: FSED 13:37
DX: R10.84 Generalized abdominal pain (principal); R11.2 Nausea with vomiting, unspecified; E11.43 Type 2 diabetes mellitus with diabetic autonomic (poly)neuropathy
CPT/HCPCS: 74177; 80053; 80076; 81003; 85025; 99284; J2270; J2405; J7030; Q9967

== ENCOUNTER 2020-06-05 17:52 | Emergency (ER) | payer MEDICARE ==
[~2020-06-05] VITALS: Ht 162.6 cm; Wt 88.5 kg
[2020-06-05] MEDS ORDERED: KETOROLAC TROMETHAMINE 60 MG/2 ML VIAL ONE (19:32)
[2020-06-05] MEDS ORDERED: KETOROLAC TROMETHAMINE 60 MG/2 ML VIAL IM ONE (19:45)
[2020-06-05] MEDS ORDERED: ULTRAM50 MG PO (20:50)
[2020-06-05] MEDS ORDERED: CYCLOBENZAPRINE5 MG PO (20:50)
[2020-06-05] MEDS ORDERED: MOTRIN800 MG PO (20:50)
== END 2020-06-05 21:15 | disposition home or self-care (01) ==
LOC: FSED 18:00
DX: S83.92XA Sprain of unspecified site of left knee, initial encounter (principal); S83.91XA Sprain of unspecified site of right knee, initial encounter; M79.672 Pain in left foot; W00.0XXA Fall on same level due to ice and snow, initial encounter; Y93.01 Activity, walking, marching and hiking; F41.9 Anxiety disorder, unspecified; K21.9 Gastro-esophageal reflux disease without esophagitis; F31.9 Bipolar disorder, unspecified
CPT/HCPCS: 73562 ×2; 73630; 99283; J1885

== ENCOUNTER 2021-05-27 12:44 | Emergency (ER) | payer MEDICARE ==
[~2021-05-27] VITALS: Ht 170.2 cm; Wt 71.7 kg
[~2021-05-27 12:44] MED LIST: CYCLOBENZAPRINE5 MG PO; MOTRIN800 MG PO; ULTRAM50 MG PO
[2021-05-27] MEDS ORDERED: NAPROSYN500 MG PO (14:34)
[2021-05-27] MEDS ORDERED: CYCLOBENZAPRINE5 MG PO (14:35)
== END 2021-05-27 14:50 | disposition home or self-care (01) ==
LOC: FSED 12:48
DX: S33.5XXA Sprain of ligaments of lumbar spine, initial encounter (principal); M79.18 Myalgia, other site; F41.9 Anxiety disorder, unspecified; F31.9 Bipolar disorder, unspecified
CPT/HCPCS: 72100; 99283

== ENCOUNTER 2022-01-27 13:09 | Emergency (ER) | payer MEDICARE ==
[~2022-01-27] VITALS: Ht 162.6 cm; Wt 67.2 kg
[~2022-01-27 13:09] MED LIST changes: +NAPROSYN500 MG PO
[2022-01-27] MEDS ORDERED: TREZIX (14:52)
[2022-01-27] MEDS ORDERED: LISINOPRIL10 MG PO (14:52)
[2022-01-27] MEDS ORDERED: SODIUM CHLORIDE 0.9% 500ML 500 ML IV STA (15:03)
[2022-01-27] MEDS ORDERED: PROMETHAZINE 12.5MG/ NACL 0.9% 12.5 MG/50 ML BAG IV ONE (15:15)
[2022-01-27] MEDS ORDERED: ACETAMINOPHEN 325 MG TAB PO ONE (15:15)
[2022-01-27] MEDS ORDERED: HYDRALAZINE HCL 20 MG/ML VIAL IV ONE (15:15)
[2022-01-27] MEDS ORDERED: DIPHENHYDRAMINE HCL INJ 50 MG/ML VIAL IV ONE (15:15)
[2022-01-27] MEDS ORDERED: DEXAMETHASONE SOD PHOS 10 MG/1 ML VIAL IV ONE (15:15)
[2022-01-27] MEDS ORDERED: KETOROLAC TROMETHAMINE 30 MG/ML VIAL IV ONE (15:15)
[2022-01-27] MEDS ORDERED: DIPHENHYDRAMINE HCL INJ 50 MG/ML VIAL ONE (15:28)
[2022-01-27] MEDS ORDERED: DEXAMETHASONE SOD PHOS INJ 4 MG/ML SDV ONE (15:28)
[2022-01-27] MEDS ORDERED: KETOROLAC TROMETHAMINE 30 MG/ML VIAL ONE (15:29)
[2022-01-27] MEDS ORDERED: HYDRALAZINE HCL 20 MG/ML VIAL ONE (15:29)
[2022-01-27] MEDS ORDERED: SODIUM CHLORIDE 0.9% 500ML 500 ML ONE (15:29)
[2022-01-27] MEDS ORDERED: ACETAMINOPHEN 325 MG TAB ONE (15:29)
[2022-01-27] MEDS ORDERED: PROMETHAZINE HCL (IM) 25 MG/ML VIAL IM ONE (15:29)
[2022-01-27] MEDS ORDERED: MECLIZINE HCL 12.5 MG TAB PO ONE (16:30)
[2022-01-27] MEDS ORDERED: CLONIDINE HCL 0.2 MG TAB PO ONE (16:30)
[2022-01-27] MEDS ORDERED: CLONIDINE HCL 0.1 MG TAB ONE (16:40)
[2022-01-27] MEDS ORDERED: MECLIZINE HCL 12.5 MG TAB ONE (16:40)
[2022-01-27] MEDS ORDERED: ONDANSETRON ODT4 MG PO (17:26)
[2022-01-27] MEDS ORDERED: AMLODIPINE BESY10 MG PO (17:26)
[2022-01-27] MEDS ORDERED: ANTIVERT25 M1 PO (17:26)
== END 2022-01-27 17:43 | disposition home or self-care (01) ==
LOC: FSED 13:15
DX: R51.9 Headache, unspecified (principal); I16.0 Hypertensive urgency; H81.13 Benign paroxysmal vertigo, bilateral; R11.2 Nausea with vomiting, unspecified; I10 Essential (primary) hypertension; F41.9 Anxiety disorder, unspecified; K21.9 Gastro-esophageal reflux disease without esophagitis; F31.9 Bipolar disorder, unspecified; Z98.84 Bariatric surgery status
CPT/HCPCS: 70450; 80053; 81003; 82553; 84484; 85025; 93005; 96374; 96375; 99284; J0360; J1100 ×2; J1200; J1885; J2550; J7040; J8597